=== PATIENT | male | born 1985 | race Caucasian/White ===

== ENCOUNTER 2021-09-30 18:58 | Emergency (ER) | payer OTHER, SELFPAY ==
[2021-09-30 19:04] VITALS: BP 138/78; PULSE 77; RESP 14; TEMP 36.6; O2SAT 98
--- NOTE | 2021-09-30 19:09 | ED.URI ---
HPI - URI/Sore Throat General Chief Complaint: Upper Respiratory Infection Stated Complaint: sinus pressure Time Seen by Provider: 09/30/21 19:09 Source: patient and RN notes reviewed History of Present Illness HPI Narrative: Patient is a 36-year-old male who presents the urgent care with complaints of sinus pressure/congestion. Patient states that he has been taking sinus Tylenol and cold medication with good improvement until today when the weather was warmer and the wind picked up . Patient states he believes on Tuesday which made it most worse. Also reports of some right ear pain. Patient has continued to take Claritin. Denies of any fever, chills, nausea, vomiting. No other acute complaints. No acute distress noted. Patient read the plan of care. Some parts of this dictation were generated by voice recognition software and may contain typographical and/or grammatical inaccuracies. Related Data Allergies Allergy/AdvReac Type Severity Reaction Status Date / Time Sulfa (Sulfonamide Allergy Unknown Rash Verified 09/30/21 19:12 Antibiotics) Review of Systems Review of Systems: CONSTITUTIONAL: Denies fever, chills, or sweats. EYES: Denies visual changes, redness, or discharge. ENT: Reports of sinus congestion/pressure and postnasal drainage with right otalgia CARDIOVASCULAR: Denies chest pain, palpitations, or edema. RESPIRATORY: Denies cough or dyspnea. GASTROINTESTINAL: Denies abdominal pain, nausea, vomiting, or diarrhea. GENITOURINARY: Denies dysuria or hematuria. SKIN: Denies rash or itching. MUSCULOSKELETAL: Denies back pain, joint pain, or myalgia. NEUROLOGIC: Denies headache, numbness, or weakness. All other systems reviewed are negative, except as documented in HPI. PMFSH Comments At the time of my signature, I reviewed and agree with the nursing past medical, surgical, social, and family history. There is no relevant family history pertinent to the patient complaint. Exam Narrative: GENERAL: This is a well-nourished, well-developed patient, in no apparent distress. HEAD: normocephalic, atraumatic. EYES: PERRL. Sclera clear/white. Vision is grossly intact. Mild to moderate frontal sinus tenderness EARS: External ears normal, auditory canals clear and without drainage, TMs normal without perforation. Hearing grossly intact. NOSE: External nose normal with no obvious nasal discharge, nares without redness, clear rhinorrhea. THROAT: Mucous membranes moist, posterior pharynx clear. Moderate postnasal drainage NECK: Neck supple CARDIOVASCULAR: Regular rate and rhythm without murmurs, gallops, or rubs. RESPIRATORY: Clear to auscultation. Breath sounds equal bilaterally. No wheezes, rales, or rhonchi. SKIN: warm, intact with no suspicious lesions or rash, good texture and turgor. NEURO: awake, alert, and oriented to person, place and time. There were no obvious focal neurologic abnormalities. EXTREMITIES: No clubbing, cyanosis, or edema. Course Vital Signs Vital signs: Vital Signs Temperature 97.8 F 09/30/21 19:04 Pulse Rate 77 09/30/21 19:04 Respiratory Rate 14 09/30/21 19:04 Blood Pressure 138/78 09/30/21 19:04 Pulse Oximetry 98 09/30/21 19:04 Temperature 97.8 F 09/30/21 19:04 Pulse Rate 77 09/30/21 19:04 Respiratory Rate 14 09/30/21 19:04 Blood Pressure 138/78 09/30/21 19:04 Pulse Oximetry 98 09/30/21 19:04 Reviewed MDM - URI/Sore Throat MDM Narrative Medical decision making narrative: Advised patient to complete the steroid regimen as prescribed. Use Flonase prior to bedtime as needed. May continue your daily Claritin regimen. Use Tylenol/ibuprofen as needed. Follow-up with your PCP within 2 to 5 days or for worsening symptoms or failure to improve. Differential Diagnosis Differential diagnosis: Likely upper respiratory infection, otitis media, sinusitis, viral infection, bronchitis, influenza and pharyngitis Critical Care Time Critical Care Time Critical Car
[2021-09-30 19:12] VITALS: BP 138/78; PULSE 77; RESP 14; TEMP 36.6; O2SAT 98
== END 2021-09-30 19:21 | disposition home or self-care (01) ==
PROVIDERS: Emergency Provider Nurse Practitioner Family; PCP Nurse Practitioner Family
DX: J32.9 Chronic sinusitis, unspecified (principal)
CPT/HCPCS: 99203; G0463

== ENCOUNTER 2021-10-24 08:51 | Emergency (ER) | payer OTHER, SELFPAY ==
[2021-10-24 09:00] VITALS: BP 126/76; PULSE 75; RESP 20; TEMP 36.9; O2SAT 100
--- NOTE | 2021-10-24 09:24 | ED.URI ---
HPI - URI/Sore Throat General Chief Complaint: Upper Respiratory Infection Stated Complaint: Sinus Pain Time Seen by Provider: 10/24/21 09:24 Source: patient, RN notes reviewed and old records reviewed Mode of arrival: ambulatory Limitations: no limitations History of Present Illness HPI Narrative: 36-year-old male presents to [facility] with complaints of sinus congestion, sinus pain, and drainage. Patient states that he was seen here on the 30 of September and received a Medrol dose pack for his sinuses which did help for about a week and then symptoms have returned. He states that he has copious amount of green nasal drainage and pressure and pain under his eyes especially on the right side. Patient states that he has been taking some Tylenol severe sinus. Patient states that he has not had COVID vaccinations, denies any fevers chills or sweats or any body aches. MD elicited complaint: rhinorrhea, nasal congestion and sinus pain Pertinent past history: sinusitis Onset (ago): week(s) (2) Related Data Allergies Allergy/AdvReac Type Severity Reaction Status Date / Time Sulfa (Sulfonamide Allergy Unknown Rash Verified 09/30/21 19:12 Antibiotics) Review of Systems Review of Systems: CONSTITUTIONAL: Denies fever, chills, or sweats. EYES: Denies visual changes, redness, or discharge. ENT: Positive for rhinorrhea, congestion, no sore throat, positive for some ear pressure. CARDIOVASCULAR: Denies chest pain, palpitations, or edema. RESPIRATORY: Denies cough or dyspnea. GASTROINTESTINAL: Denies abdominal pain, nausea, vomiting, or diarrhea. GENITOURINARY: Denies dysuria or hematuria. SKIN: Denies rash or itching. MUSCULOSKELETAL: Denies back pain, joint pain, or myalgia. NEUROLOGIC: Denies headache, numbness, or weakness,positive for pressure to face. PSYCHIATRIC: Denies anxiety or depression. All systems reviewed & are unremarkable except as noted in HPI and below PMFSH Past Medical History Medical History (Updated 10/24/21 @ 09:59 by Franca Ojeda NP) Sinusitis Surgical History Surgical History History of appendectomy Family History Family History (Updated 10/24/21 @ 10:00 by Franca Ojeda NP) Father Heart disease Sibling Asthma Social History Social History (Updated 10/24/21 @ 10:01 by Franca Ojeda NP) Tobacco type: e-cigarettes/vaping Additional smoking assessment comments: former tobacco use quit smoking cigarettes 4 years ago Alcohol intake: unknown Substance use: unknown Living arrangements: with family Gender identity (if verbalized by the patient): Male Comments At time of signature, agree with nursing past medical, surgical, social and family history. There is no relevant family history pertinent to the presenting complaint Exam Narrative: GENERAL: Well-appearing, well-nourished, and in no acute distress. HEAD: Normocephalic, atraumatic. EYES: PERRLA and EOMI. ENT: Nares red with swollen inflamed turbinates. green nasal rhinorrhea no epistaxis. Mucous membranes moist.TM's normal with dull light reflex, throat pink with no lesions or exudates, no tonsil enlargement. NECK: Supple. no lymphadenopathy CHEST: Clear to auscultation. No respiratory distress.SAO2 100% on room air HEART: Regular rate and rhythm. No murmur heard. Normal peripheral pulses. ABDOMEN: Soft, nontender, nondistended, normal active bowel sounds. EXTREMITIES: Normal range of motion. No edema. SKIN: Warm, dry, no rash. NEURO: No focal deficits. Alert and oriented x3. Course Vital Signs Vital signs: Vital Signs Temperature 36.9 C 10/24/21 09:00 Pulse Rate 75 10/24/21 09:00 Respiratory Rate 20 10/24/21 09:00 Blood Pressure 126/76 10/24/21 09:00 Pulse Oximetry 100 10/24/21 09:00 Temperature 36.9 C 10/24/21 09:00 Pulse Rate 75 10/24/21 09:00 Respiratory Rate 20 10/24/21 09:00 Blood Pressure 126/76 10/24/21 09:00 P
== END 2021-10-24 09:40 | disposition home or self-care (01) ==
PROVIDERS: Emergency Provider Registered Nurse; PCP Nurse Practitioner Family
DX: J32.9 Chronic sinusitis, unspecified (principal); F17.290 Nicotine dependence, other tobacco product, uncomplicated
CPT/HCPCS: 99213; G0463

== ENCOUNTER 2022-10-09 08:07 | Emergency (ER) | payer OTHER, SELFPAY ==
--- NOTE | 2022-10-09 08:13 | ED.URI ---
HPI - URI/Sore Throat General Chief Complaint: Ear Stated Complaint: ears chest congestion Time Seen by Provider: 10/09/22 08:14 Source: patient and RN notes reviewed History of Present Illness HPI Narrative: patient is a 37-year-old male who presents to urgent care with complaints of bilateral ear discomfort after being sick since last Tuesday. Patient states that he had been taking a lot of Sudafed, nasal spray and [id number]-[id number]-szhbrtu cough medication. Patient states all of his symptoms have since resolved with the exception of the ear pressure. Patient also reports of some wheezing at night. Denies any recent fevers. No other acute complaints. No acute distress noted. Patient aware of the plan of care. Some parts of this dictation were generated by voice recognition software and may contain typographical and/or grammatical inaccuracies. Related Data Allergies Allergy/AdvReac Type Severity Reaction Status Date / Time Sulfa (Sulfonamide Allergy Unknown Rash Verified 10/09/22 08:27 Antibiotics) Penicillins Allergy Unknown Verified 10/09/22 08:27 Review of Systems Review of Systems: CONSTITUTIONAL: Denies fever, chills, or sweats. EYES: Denies visual changes, redness, or discharge. ENT: Reports bilateral ear pain CARDIOVASCULAR: Denies chest pain, palpitations, or edema. RESPIRATORY: reports mild nonproductive cough with intermittent wheezing GASTROINTESTINAL: Denies abdominal pain, nausea, vomiting, or diarrhea. GENITOURINARY: Denies dysuria or hematuria. SKIN: Denies rash or itching. MUSCULOSKELETAL: Denies back pain, joint pain, or myalgia. NEUROLOGIC: Denies headache, numbness, or weakness. All other systems reviewed are negative, except as documented in HPI. [facility] Past Medical History Medical History (Updated 10/09/22 @ 08:35 by ALLI Alfaro) Sinusitis Surgical History Surgical History History of appendectomy Family History Family History (Updated 10/24/21 @ 10:00 by Franca Ojeda NP) Father Heart disease Sibling Asthma Social History Social History (Updated 10/24/21 @ 10:01 by Franca Ojeda NP) Tobacco type: e-cigarettes/vaping Additional smoking assessment comments: former tobacco use quit smoking cigarettes 4 years ago Alcohol intake: unknown Substance use: unknown Gender identity (if verbalized by the patient): Male Comments At the time of my signature, I reviewed and agree with the nursing past medical, surgical, social, and family history. There is no relevant family history pertinent to the patient complaint. Exam Narrative: GENERAL: This is a well-nourished, well-developed patient, in no apparent distress. HEAD: normocephalic, atraumatic. EYES: PERRL. Sclera clear/white. Vision is grossly intact. EARS: External ears normal, auditory canals clear and without drainage, TMs normal without perforation. Hearing grossly intact. NOSE: External nose normal with no obvious nasal discharge, nares without redness, no rhinorrhea. THROAT: Mucous membranes moist, posterior pharynx clear. mild postnasal drainage NECK: Neck supple, non-tender without lymphadenopathy, masses or thyromegaly. CARDIOVASCULAR: Regular rate and rhythm without murmurs, gallops, or rubs. RESPIRATORY: inspiratory wheezes SKIN: warm, intact with no suspicious lesions or rash, good texture and turgor. NEURO: awake, alert, and oriented to person, place and time. There were no obvious focal neurologic abnormalities. EXTREMITIES: No clubbing, cyanosis, or edema. Course Course Level of Care: Express Care Visit Vital Signs Vital signs: Vital Signs Temperature 97.9 F 10/09/22 08:18 Pulse Rate 59 L 10/09/22 08:18 Respiratory Rate 20 10/09/22 08:18 Blood Pressure 133/80 10/09/22 08:18 Pulse Oximetry 97 10/09/22 08:18 Oxygen Delivery Room Air 10/09/22 08:18 Temperature 97.9 F 10/09/22 08:18 Pulse Rate
[2022-10-09 08:18] VITALS: BP 133/80; PULSE 59; RESP 20; TEMP 36.6; O2SAT 97
== END 2022-10-09 08:46 | disposition home or self-care (01) ==
PROVIDERS: Emergency Provider Nurse Practitioner Family; PCP Nurse Practitioner Family
DX: J40 Bronchitis, not specified as acute or chronic (principal); F17.290 Nicotine dependence, other tobacco product, uncomplicated
CPT/HCPCS: 99213; G0463

== ENCOUNTER 2024-10-19 15:34 | Emergency (ER) | payer BC, SELFPAY ==
[2024-10-19 15:40] VITALS: BP 139/65; PULSE 81; RESP 16; TEMP 36.4; O2SAT 98
--- NOTE | 2024-10-19 15:48 | ED_ITS ---
HPI - Ear Problem General Chief complaint: Ear Stated complaint: Right Ear Pain Time Seen by Provider: 10/19/24 15:48 Source: patient, RN notes reviewed and old records reviewed Mode of arrival: ambulatory Limitations: no limitations History of Present Illness HPI Narrative: 39 year old male who presents to [facility] with complaints of right ear itchy for one week duration and also has odor from his ear. Patient reports that he has had frequent right ear infections over the years to his right ear and presently doesn't have pain to his right ear. Patient reports that he has had some left over ear drops that he has been applying for the past 3 nights which have not helped. MD Complaint: other (ear itchy and has odor) Location: right ear Duration: constant Severity: moderate Discharge from ear: Reports no Associated symptoms ear: other (itchy right ear and odorous) Treatment prior to arrival: eardrops Related Data Allergies Allergy/AdvReac Type Severity Reaction Status Date / Time Sulfa (Sulfonamide Allergy Unknown Rash Verified 10/19/24 15:49 Antibiotics) Penicillins Allergy Unknown Verified 10/19/24 15:49 Review of Systems Review of Systems: CONSTITUTIONAL: Denies malaise, chills, sweats, or fever. EYES: Denies visual changes, redness, or discharge. ENT: Reports rhinorrhea, congestion, no sinus pain,right ear feels itchy and has odor reports no pain and no sore throat. CARDIOVASCULAR: Denies chest pain, palpitations, or edema. RESPIRATORY: Reports no cough.? Denies dyspnea. GASTROINTESTINAL: Denies abdominal pain, nausea, vomiting, diarrhea SKIN: Denies rash or itching. MUSCULOSKELETAL: Denies myalgia. NEUROLOGIC: Denies headache. All systems reviewed & are unremarkable except as noted in HPI and below [facility] Past Medical History Medical History (Updated 10/21/24 @ 18:47 by Franca Ojeda NP) Ear infection Sinusitis Surgical History Surgical History History of appendectomy Family History Family History (Updated 10/24/21 @ 10:00 by Franca Ojeda NP) Father Heart disease Sibling Asthma Social History Social History (Updated 10/24/21 @ 10:01 by Franca Ojeda NP) Tobacco type: e-cigarettes/vaping Additional smoking assessment comments: former tobacco use quit smoking cigarettes 4 years ago Alcohol intake: unknown Substance use: unknown Living arrangements: with family Gender identity (if verbalized by the patient): Male Comments At time of signature, agree with nursing past medical, surgical, social and family history. There is no relevant family history pertinent to the presenting complaint Exam Narrative: GENERAL: Well-appearing, well-nourished, and in no acute distress. HEAD: Normocephalic EYES: PERRLA, conjunctivae clear ENT: Nares clear, turbinates edematous and erythematous, clear discharge. Mucous membranes moist Right TM red and bulging with ear canal red and excoriated,Left TM pearly lizarraga with dull light reflex; right tragal tenderness. Oropharynx er ythematous without lesions. Tonsils not enlarged and without exudate, no drooling, no hoarseness, no trismus, uvula midline. NECK: Supple. No lymphadenopathy CHEST: Clear to auscultation, breath sounds equal. No wheezing, rhonchi, rales, or stridor. No respiratory distress, speaks in full sentences.SAO2 98% on room air HEART: Regular rate and rhythm. No murmur heard. SKIN: Warm, dry, no rash. NEURO: Alert and oriented x3. PSYCH: Normal mood and affect Course Course Emergency Course: Patient is aware of diagnosis, understands and agrees to treatment plan.? Anticipatory guidance given.? Patient agrees to follow-up as directed and is aware of reasons to seek care at the emergency department. Portions of this record may have been created with voice recognition software Level of Care: Express Care Visit Vital Signs Vital signs: Vital Signs Temperature 36.4 C 10/19/24 15:40 Pulse Rate 81 10/19/24 15:40 Respiratory Rate 16 10/19/24 15:40 Blood Pressure 139/65 10/19/24 15:40 Pulse Oximetry 98 10/19/24 15:40 Oxygen Delivery Room Air 10/19/24 15:40 Temperature 36.4 C 10/19/24 15:40 Pulse Rate 81 10/19/24 15:40 Respiratory Rate 16 10/19/24 15:40 Blood Pressure 139/65 10/19/24 15:40 Pulse Oximetry 98 10/19/24 15:40 Oxygen Delivery Room Air 12/13/24 15:40 Reviewed Medical Decision Making Differential Diagnosis Differential Diagnosis: URI, otitis media, otitis externa, sinusitis, viral infection Medical Records Medical records reviewed: Yes I reviewed the external patient's medical records. Vital Signs Vital Signs: Vital Signs Temperature 36.4 C 10/19/24 15:40 Pulse Rate 81 10/19/24 15:40 Respiratory Rate 16 10/19/24 15:40 Blood Pressure 139/65 10/19/24 15:40 Pulse Oximetry 98 10/19/24 15:40 Oxygen Delivery Room Air 10/19/24 15:40 Temperature 36.4 C 10/19/24 15:40 Pulse Rate 81 10/19/24 15:40 Respiratory Rate 16 10/19/24 15:40 Blood Pressure 139/65 10/19/24 15:40 Pulse Oximetry 98 10/19/24 15:40 Oxygen Delivery Room Air 10/19/24 15:40 Critical Care Time Critical Care Time Critical Care Time: No Discharge Plan Discharge Clinical Impression: Otitis externa Qualifiers: Otitis externa type: other infective Chronicity: acute Laterality: right Qualified Code(s): H60.391 - Other infective otitis externa, right ear Otitis media Qualifiers: Otitis media type: serous Chronicity: acute Laterality: right Recurrence: non- recurrent Qualified Code(s): H65.01 - Acute serous otitis media, right ear Patient Disposition: Home, Self-Care Condition: Stable Instructions: Antibiotic Form, Barotitis Media (ED), Ear Infection (GEN) Additional Instructions: Increase fluids especially juices and water Mbcq-cdp-otmcvep cough and cold medicine of your choice for your symptoms Tylenol or ibuprofen for any fever pain heat to the face 20-30 minutes 4-6 times a day for pain Salt water gargles, throat lozenges or throat sprays as desired Antibiotic as directed--finished the medication Ear drops as prescribed to right ear Zyrtec Claritin or Ana daily If your symptoms persist, change or worsen significantly before you can contact your personal physician then please, without delay, go to the emergency department for further evaluation. Follow-up with PCP in 7-10 days or sooner if needed Follow up with PCP soon in regards to your blood pressure which is elevated above threshold for referral. Blood pressure above 120/80 may indicate pre- hypertension. 139/65 Patient Language: Turkmen Prescriptions: New ofloxacin 0.3 % drops 5 drp RIGHT EAR BID 7 Days Qty: 10 0RF cefdinir 300 mg capsule 300 mg PO Q12H Qty: 20 0RF No Action albuterol sulfate 90 mcg/actuation HFA aerosol inhaler 2 puff INHALATION QID PRN (Reason: shortness of breath or wheezing) Qty: 8 0RF Follow-up/Referrals: Regna,Sita Mack APN [Primary Care Provider] - Time of Disposition: 16:02 Quality Angelica Coma Scale Eyes: Open Verbal: Oriented and Alert Motor: Follows Commands Angelica Coma Total Score: 15
--- OUTSIDE RECORDS SUMMARY | 2024-10-23 01:53 | XMS_ITS | Clinical Summary ---
Author Organization [facility] Address [address] [place] [address] Phone Care Team Providers Care Informatics Nurse Specialist Name Role Phone Jass, Sita SANCHEZ CNP Primary Care Provider [phone] Allergies Active Allergy Reactions Criticality Noted Date Comments Lvvpddcqqoctkvj-Fflobcz-Ta Itching 9 Sulfa Antibiotics Unknown 01/03/2019 Medications ibuprofen (MOTRIN) 800 MG Tablet Take 1 Tab by mouth every 8 hours. 30 Tab 09/17/2020 Active Immunizations Immunization Administration Dates Next Due Influenza Vaccine greater than 3 yrs 07/17/2015 Social History Tobacco Use Types Packs/Day Years Used Date Smoking Tobacco: Former Smokeless Tobacco: Never Alcohol Use Standard Drinks/Week Comments Not Currently 0 (1 standard drink = 0.6 oz pur e alcohol) Sex and Gender Information Value Date Recorded Sex Assigned at Not on file Legal Sex Male 5:40 PM CDT Gender Identity Not on file Sexual Orientation Not on file Last Filed Vital Signs Vital Sign Reading Time Taken Comments Blood Pressure 146/76 09/17/2020 11:22 AM HYGIENE COORDINATOR Pulse 80 09/17/2020 11:22 AM HYGIENE COORDINATOR Temperature 36.2 ??C (97.2 ??F) 09/17/2020 9:27 AM CS T Respiratory Rate 16 09/17/2020 11:22 AM HYGIENE COORDINATOR Oxygen Saturation 98% 09/17/2020 11:22 AM HYGIENE COORDINATOR Inhaled Oxygen Concentration - - Weight 102.1 kg (225 lb) 10/14/2020 8:03 AM HYGIENE COORDINATOR Height 175.3 cm (5' 9 ) 10/14/2020 8:03 AM HYGIENE COORDINATOR Body Mass Index 33.23 10/14/2020 8:03 AM HYGIENE COORDINATOR Plan of Treatment Health Maintenance Due Date Last Done Comments Hepatitis C Virus (HCV) Screening 1983 TdaP Immunization 1983 Hepatitis B Immunization (1 of 3 - 19+ 3-dose series) 2002 Influenza Immunization (#1) 2024 07/17/2015 SARS-COV-2 Immunization ( - 2023-25 season) 2024 Respiratory Syncytial Virus (RSV) Immunization (Adult) (1 - 1-dose 75+ series) 2058 Meningococcal Immunization (ACWY) Aged Out No longer eligible based on patient's age to complete this topic Pneumococcal Immunization Combined Aged Out No longer eligible based on patient's age to complete this topic Rotavirus Immunization Aged Out No lo nger eligible based on patient's age to complete this topic Insurance MEDICAID [place] Care Teams Informatics Nurse Specialist Relationship Specialty Start Date End Date Sita Regan APRN, [place] [address] [place] [address] [place] [id number] PCP - General Family Medicine 12/22/18
--- OUTSIDE RECORDS SUMMARY | 2024-10-23 01:53 | XMS_ITS | Encounter Summary ---
Author Organization [facility] Address [address] [address] Phone Care Team Providers Care Manager Operations And Procurement Name Role Phone Sita Regan APRN, CNP Primary Care Provider [phone] Reason for Referral * Radiology Services (Routine) - Closed Specialty Diagnoses / Procedures Referred By Contac t Referred To Contact Radiology Diagnoses Right upper quadrant pain Procedures NM HEPATOBILIARY WITH PHARM Sita Regan APRN, CNP [address] [place] [address] Phone: tel: fax: Referral ID Status Reason Start Date Expiration Date Visits Re quested Visits Authorized [id number] Closed 09/26/2020 1 1 GER APPLICATION DEVELOPMENT Reason for Visit * Radiology Services (Routine) - Closed Specialty Diagnoses / Procedures Referred By Contac t Referred To Contact Radiology Diagnoses Right upper quadrant pain Procedures NM HEPATOBILIARY WITH PHARM Sita Regan APRN, CNP [address] [place] [address] Phone: tel: fax: Referral ID Status Reason Start Date Expiration Date Visits Re quested Visits Authorized [id number] Closed 09/26/2020 1 1 Encounter Details Date Type Department Care Team (Latest Contact Info) Description 10/14/2020 7:58 AM MANAGER APPLICATION DEVELOPMENT - 10/14/2020 11:59 PM MANAGER APPLICATION DEVELOPMENT Hospital Encounter [facility] [address] [place] [address] Sita Regan APRN, CNP [address] [place] [address] Discharge Disposition: Discharged to home or Selfcare Social History Tobacco Use Types Packs/Day Years Used Date Smoking Tobacco: Former Smokeless Tobacco: Never Alcohol Use Standard Drinks/Week Comments Not Currently 0 (1 standard drink = 0.6 oz pur e alcohol) Sex and Gender Information Value Date Recorded Sex Assigned at Not on file Legal Sex Male 5:40 PM CDT Gender Identity Not on file Sexual Orientation Not on file COVID-19 Exposure Response Date Recorded In the last month, have you been in contact with someone who was confirmed or suspected to have Coronavirus / COVID-19? No / Unsure 10/14/2020 7:48 AM MANAGER APPLICATION DEVELOPMENT documented as of this encounter Last Filed Vital Signs Vital Sign Reading Time Taken Comments Blood Pressure - - Pulse - - Temperature - - Respiratory Rate - - Oxygen Saturation - - Inhaled Oxygen Concentration - - Weight 102.1 kg (225 lb) 10/14/2020 8:03 AM MANAGER APPLICATION DEVELOPMENT Height 175.3 cm (5' 9 ) 10/14/2020 8:03 AM MANAGER APPLICATION DEVELOPMENT Body Mass Index 33.23 10/14/2020 8:03 AM MANAGER APPLICATION DEVELOPMENT documented in this encounter Medications at Time of Discharge ibuprofen (MOTRIN) 800 MG Tablet Take 1 Tab by mouth every 8 hours. 30 Tab 09/17/2020 documented as of this encounter Plan of Treatment Not on file documented as of this encounter Procedures Procedure Name Priority Date/Time Associated Diagnosis Comments NM HEPATOBILIARY WITH PHARM Routine 10/14/2020 9:47 AM MANAGER APPLICATION DEVELOPMENT Right upper quadrant pain documented in this encounter Results * NM HEPATOBILIARY WITH PHARM (10/14/2020 9:47 AM MANAGER APPLICATION DEVELOPMENT) Anatomical Region Laterality Modality Abdomen N/A Nuclear Medicine 10/14/2020 10:2 7 AM MANAGER APPLICATION DEVELOPMENT Impressions 10/14/2020 10:29 AM MANAGER APPLICATION DEVELOPMENT IMPRESSION: ?? No scintigraphic evidence of cystic duct obstruction. Suboptimal contractile response of the gallbladder to fatty meal stimulation. Differential considerations include biliary dyskinesia and chronic cholecystitis. Narrative 10/14/2020 10:29 AM MANAGER APPLICATION DEVELOPMENT EXAM DESCRIPTION: ?? NM HEPATOBILIARY WITH PHARM RADIOPHARMACEUTICAL: ?? 5.2 mCi Tc-99m mebrofenin via a ??right hand IV site and 8 oz Ensure Plus or equivalent P.O. REASON FOR STUDY: ?? Right upper quadrant pain for 3 weeks TECHNIQUE: ??Following the intravenous administration of the radiopharmaceutical, sequential abdominal images were obtained. COMPARISON: ?? Ultrasound dated September 13, 2020 FINDINGS: ?? There is prompt, homogenous tracer localization throughout the liver. There is normal visualization of the intrahepatic ducts, common bile duct, and gallbladder. ??There is normal biliary to bowel transit. Following the oral administration of Ensure Plus or equivalent, the gallbladder ejection fraction was calculated and was ??0% (normal: greater than 40%, equivocal: 30-40%, and abnormal: less than 30%). THIS IS AN ELECTRONICALLY VERIFIED FINAL REPORT 10/14/2020 10:27 AM - Electronically signed by Kris Jung M.D. JA: MALIK D: ??10/14/2020 10:27 AM T: ??10/14/2020 10:27 AM Report ID: [id number] Reading Location: ??[phone].[facility] [place] Procedure Note Kris Jung MD - 10/14/2020 EXAM DESCRIPTION: NM HEPATOBILIARY WITH PHARM RADIOPHARMACEUTICAL: 5.2 mCi Tc-99m mebrofenin via a right hand IV site and 8 oz Ensure Plus or equivalent P.O. REASON FOR STUDY: Right upper quadrant pain for 3 weeks TECHNIQUE: Following the intravenous administration of the radiopharmaceutical, sequential abdominal images were obtained. COMPARISON: Ultrasound dated September 13, 2020 FINDINGS: There is prompt, homogenous tracer localization throughout the liver. There is normal visualization of the intrahepatic ducts, common bile duct, and gallbladder. There is normal biliary to bowel transit. Following the oral administration of Ensure Plus or equivalent, the gallbladder ejection fraction was calculated and was 0% (normal: greater than 40%, equivocal: 30-40%, and abnormal: less than 30%). THIS IS AN ELECTRONICALLY VERIFIED FINAL REPORT 10/14/2020 10:27 AM - Electronically signed by Krisfaye Jung M.D. JA: MALIK Report ID: [id number] Reading Location: [phone].[facility] IMPRESSION: No scintigraphic evidence of cystic duct obstruction. Suboptimal contractile response of the gallbladder to fatty meal stimulation. Differential considerations include biliary dyskinesia and chronic cholecystitis. THALIA Brady APRN NM ORDERABLES Final R esult documented in this encounter Visit Diagnoses Diagnosis Right upper quadrant pain Abdominal pain, right upper quadrant documented in this encounter Administered Medications Inactive Administered Medications - up to 3 most recent administrations Medication Order MAR Action Action Date Dose Rate Site TC-99M MEBROFENIN PER DOSE,UP TO 15 MCI 1 Dose, Intravenous, ONCE, 1 dose, On 10/14/20 at 0830 Given 10/14/2020 8:30 AM MANAGER APPLICATION DEVELOPMENT 1 Dose documented in this encounter Care Teams Manager Operations And Procurement Relationship Specialty Start Date End Date Sita Regan APRN, THALIA [address] [place] [address] PCP - General Family Medicine 12/22/18 documented as of this encounter
--- OUTSIDE RECORDS SUMMARY | 2024-10-23 01:53 | XMS_ITS | Patient Health Summary ---
Author Organization [facility] Address [address] [place] [address] Care Team Providers Care Phone Counselor Name Role Phone Unavailable Primary Care Provider Unavailabl e Note from [facility],non-owned Affiliates and Associated Physician Practices is amultiple site organization consisting of ambulatory clinics and hospital sitesin [place], [place], [place] and [place]. This disclosure is being madepursuant to the Care Everywhere program and may not contain all information available regarding this patient. Last updated 18.[facility] Social History Tobacco Use Types Packs/Day Years Used Date Smoking Tobacco: Never Assessed Sex and Gender Information Value Date Recorded Sex Assigned at Not on file Gender Identity Not on file Sexual Orientation Not on file Procedures * GROSS + MICRO EXAM(Performed 02/05/1998) Results * GROSS + MICRO EXAM (02/05/1998 11:52 AM HOUSING SPECIALIST) Result CASE NUMBER [id number] Comment: ORDERING PHYSICIAN ??SENG VAN SPECIMEN TYPE ?Tooth Date of Surgery ?02/05/1998 0832 SPECIMEN SOURCE ? Tooth *Pre Op Dx ? Impacted tooth GROSS DESCRIPTION ? Received in fixative and labeled Godfrey Bowser tooth, there is a single, intact, non-carious tooth, together with several splinters of pink bone, the latter measuring in aggregate 0.7 x 0.6 x 0.1 cm. The specimen is taken for gross identification only. Grossed by ? CHICHI PRICE M.D. DIAGNOSIS ? NON-CARIOUS TOOTH AND SPLINTERS OF BONE. (GROSS ONLY) CODE 1 CPT ??Level I ??74638 RELEASED BY ?CHICHI Witt MISCELLANEOUS SAMPLES / Unknown 02/05/1998 11:52 AM HOUSING SPECIALIST 02/05/1998 11:52 AM HOUSING SPECIALIST Historical Provider LAB - PATHOLOGY/C YTOLOGY ORDERABLES
--- OUTSIDE RECORDS SUMMARY | 2024-10-23 01:53 | XMS_ITS | Encounter Summary ---
Author Organization [facility] [facility] Care Team Providers Care Pc Installation Engineer Name Role Phone Sita Regan APRN, CNP Primary Care Provider [phone] Encounter Details Date Type Department Care Team (Latest Contact Info) Description 09/17/2020 Travel Social History Tobacco Use Types Packs/Day Years [...] have Coronavirus / COVID-19? 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
--- OUTSIDE RECORDS SUMMARY | 2024-10-23 01:53 | XMS_ITS | Encounter Summary ---
Author Organization [facility] Address [address] [place] [address] Phone Care Team Providers Care Supervisor Fruit [employer] Name Role Phone ReganBroSitamurtaza SANCHEZ CNP Primary Care Provider [phone] Reason for Visit * Reason Comments Abdominal Pain Encounter Details Date Type Department Care Team (Late st Contact Info) Description 09/17/2020 9:31 AM BUS PERSON DISHWASHER - 09/17/2020 11:23 AM BUS PERSON DISHWASHER Emergency [facility] Emergency [address] [place] [address] Jake Flores MD [address] [place] [address] Abdominal pain, right upper quadrant Discharge Disposition: Discharged to home or Selfcare [...] COVID-19? No / Unsure 09/17/2020 9:27 AM BUS PERSON DISHWASHER documented as of this encounter Last Filed Vital Signs Vital Sign Reading Time Taken Comments Blood Pressure 146/76 09/17/2020 11:22 AM BUS PERSON DISHWASHER Pulse 80 09/17/2020 11:22 AM BUS PERSON DISHWASHER Temperature 36.2 ??C (97.2 ??F) 09/17/2020 9:27 AM CS T Respiratory Rate 16 09/17/2020 11:22 AM BUS PERSON DISHWASHER Oxygen Saturation 98% 09/17/2020 11:22 AM BUS PERSON DISHWASHER Inhaled Oxygen Concentration - - Weight 102.1 kg (225 lb) 09/17/2020 9:27 AM BUS PERSON DISHWASHER Height 175.3 cm (5' 9 ) 09/17/2020 9:27 AM BUS PERSON DISHWASHER Body Mass Index 33.23 09/17/2020 9:27 AM BUS PERSON DISHWASHER documented in this encounter Discharge Instructions * Discharge Instructions* Jake Flores - 09/17/2020 11:11 AM BUS PERSON DISHWASHER Images from the original note were not included. Abdominal Pain Abdominal pain is pain in the stomach or belly area. Everyone has this pain from time to time. In many cases it goes away on its own. But abdominal pain can sometimes be due to a serious problem, such as appendicitis. So it???s important to know when to get help. Causes of abdominal pain There are many possible causes of abdominal pain. Common causes in adults include: ?? Constipation, diarrhea, or gas ?? Stomach acid flowing back up into the esophagus (acid reflux or heartburn) ?? Severe acid reflux, called GERD (gastroesophageal reflux disease) ?? A sore in the lining of the stomach or small intestine (peptic ulcer) ?? Inflammation of the gallbladder, liver,??or pancreas ?? Gallstones or kidney stones ?? Appendicitis? Intestinal blockage? An internal organ pushing through a muscle or other tissue (hernia) ?? Urinary tract infections ?? In women, menstrual cramps, fibroids, ovarian cysts, pelvic inflammatory disease, or endometriosis ?? Inflammation or infection of the intestines, including Crohn's disease and ulcerative colitis ?? Irritable bowel syndrome Diagnosing the cause of abdominal pain Your healthcare provider will give you a physical exam help find the cause of your pain. If needed,you will have tests. Belly pain has many possible causes. So it can be hard to find the reason for your pain. Giving details about your pain can help. Tell your provider where and when you feel the pain, and what makes it better or worse. Also let your provider know if you have other symptoms such as: ?? Fever ?? Tiredness ?? Upset stomach (nausea) ?? Vomiting ?? Changes in bathroom habits ?? Blood in the stool or black, tarry stool ?? Weight loss that you can't explain (involuntary weight loss?) Also report any family history of stomach or intestinal problems, or cancers. Tell your provider about all your alcohol use and drug use. Tell your provider about all medicines you use, including herbs, vitamins, and supplements. Treating abdominal pain Some causes of pain need emergency medical treatment right away. These include appendicitis or a bowel blockage. Other problems can be treated with rest, fluids, or medicines. Your healthcare provider can give you specific instructions for treatment or self-care based on what is causing your pain. ?? If you have vomiting or diarrhea,??sip water or other clear fluids. When you are ready to eat solidfoods again, start with small amounts of uwio-vf-fuquwe, low- fat foods. These include apple sauce, toast, or crackers. When to get medical care Call 911??or go to the hospital right away if you: ?? Can???t pass stool and are vomiting ?? Are vomiting blood or have bloody diarrhea or black, tarry diarrhea ?? Have chest, neck, or shoulder pain ?? Feel like you might pass out ?? Have pain in your shoulder blades with nausea ?? Have sudden, severe belly pain ?? Have new, severe??pain unlike any you have felt before ?? Have a belly that is rigid, hard, and hurts to touch Call your healthcare provider if you have: ?? Pain for more than??5??days ?? Bloating for more than 2??days ?? Diarrhea for more than??5??days ?? A fever of 100.4??F (38??C) or higher, or as directed by your healthcare provider ?? Pain that gets worse ?? Weight loss for no reason ?? Continued lack of appetite ?? Blood in your stool How to prevent abdominal pain Here are some tips to help prevent abdominal pain: ?? Eat smaller amounts of food at each meal. ?? Don't eat greasy, fried, or other high-fat foods. ?? Don't eat foods that give you gas. ?? Exercise regularly. ?? Drink plenty of fluids. To help prevent GERD symptoms: ?? Quit smoking. ?? Reduce alcohol and foods that increase stomach acid. ?? Don't use aspirin or rphq-ynq-atekyih pain and fever medicines, if possible. This includes nonsteroidal anti-inflammatory drugs (NSAIDs). ?? Lose excess weight. ?? Finish eating at least 2 hours before you go to bed or lie down. ?? Raise the head of your bed. Brenda mcguire reviewed this educational content on 02/05/2019 ?? [id number] [employer]. [address] [place] [address]. All rights reserved. This information is not intended as a substitute for professional medical care. Always follow your healthcare professional's instructions. PERSON DISHWASHER documented in this encounter Medications at Time of Discharge ibuprofen (MOTRIN) 800 MG Tablet Take 1 Tab by mouth every 8 hours. 30 Tab 09/17/2020 documented as of this encounter ED Notes * Faiza Campos RN - 09/17/2020 11:23 AM CST Patient discharged. Discharge instructions and patient educational material reviewed with patient; questions and concerns addressed; patient verbalizes understanding, using teach back. Patient was given 1 prescriptions. Patient discharged per ambulatory mode with no distress noted. SL D/C'ed with Sebas cath intact. PERSON DISHWASHER * Faiza Campos RN - 09/17/2020 10:47 AM CST Patient returned from ct. No distress noted. PERSON DISHWASHER * Faiza Campos RN - 09/17/2020 10:08 AM CST Pt medicated per provider orders. Pt educated on intended effects and side effects of medication and verbalized understanding, able to provide teach back of education. Patient is resting in room withcall light at bedside. Patient informed about wait time and verbalizes understanding. Patient denies needs at this time and verbalizes understanding that RN will complete hourly rounding. PERSON DISHWASHER * Jake Flores - 09/17/2020 9:49 AM CST Chief Complaint Patient presents with ??? Abdominal Pain Godfrey Bowser is a 35 y.o. male TO THE EMERGENCY DEPARTMENT FROM WORK WITH COMPLAINT OF RIGHT UPPER QUADRANT PAIN. CURRENTLY TUESDAY MORNING AROUND 9:40 A.M. SEPTEMBER 17, 2020. PATIENT HAS HAD RIGHT UPPER QUADRANT PAIN FOR THE LAST WEEK. WORSE WHEN HE IS SLEEPING. WAKES HIM FROM SLEEP. NONRADIATING. NO TRAUMA. CALLED PRIMARY PROVIDER AND HAS RIGHT UPPER QUADRANT ULTRASOUND ORDERED. ONLY ABDOMINAL SURGERY APPENDECTOMY. PATIENT HAS NAUSEA WITHOUT VOMITING. NO TREATMENT PRIOR TO ARRIVAL. NO HEMATEMESIS HEMATOCHEZIA OR MELENA. NO ALCOHOL ABUSE. NO HISTORY OF PANCREATITIS. NO HISTORY OF DOCUMENTED PEPTIC ULCER DISEASE. NO SIGNIFICANT HISTORY OF GERD OR GASTRITIS. NO UTI COMPLAINTS. HERE FOR FURTHER EVALUATION MANAGEMENT. The history is provided by the patient and medical records. Abdominal Pain Associated symptoms: nausea Associated symptoms: no chest pain, no chills, no cough, no diarrhea, no dysuria, no fever, no shortness of breath, no sore throat and no vomiting Current Facility-Administered Medications Medication Dose Route Frequency Provider Last Rate Last Admin ??? ketorolac (TORADOL) injection 15 mg 15 mg Intravenous Once Jake Flores MD ??? ondansetron (ZOFRAN) injection 4 mg 4 mg Intravenous Once Jake Flores MD No current outpatient medications on file. Allergies Allergen Reactions ??? Guaifenesin Dac [Mzedomcwngoasym-Rtsjiju-Mo] Itching ??? Sulfa Antibiotics Unknown No past medical history on file. Past Surgical History: Procedure Laterality Date ??? APPENDECTOMY Social History Socioeconomic History ??? Marital status: Spouse name: Not on file ??? Number of children: Not on file ??? Years of education: Not on file ??? Highest education level: Not on file Occupational History ??? Not on file Social Needs ??? Financial resource strain: Not on file ??? Food insecurity Worry: Not on file Inability: Not on file ??? Transportation needs Medical: Not on file Non-medical: Not on file Tobacco Use ??? Smoking status: Former Smoker ??? Smokeless tobacco: Never Used Substance and Sexual Activity ??? Alcohol use: Not Currently ??? Drug use: Yes Types: Marijuana ??? Sexual activity: Not on file Lifestyle ??? Physical activity Days per week: Not on file Minutes per session: Not on file ??? Stress: Not on file Relationships ??? Social connections Talks on phone: Not on file Gets together: Not on file Attends mosque service: Not on file Active member of club or organization: Not on file Attends meetings of clubs or organizations: Not on file Relationship status: Not on file ??? Intimate partner violence Fear of current or ex partner: Not on file Emotionally abused: Not on file Physically abused: Not on file Forced sexual activity: Not on file Other Topics Concern ??? Not on file Social History Narrative ??? Not on file BP 142/85 Pulse 73 Temp 97.2 ??F (36.2 ??C) (Tympanic) Resp 18 Ht 5' 9 (1.753 m) Wt 225 lb (102.1 kg) SpO2 98% BMI 33.23 kg/m?? Review of Systems Constitutional: Negative for appetite change, chills and fever. HENT: Negative for congestion, hearing loss, rhinorrhea and sore throat. Eyes: Negative for visual disturbance. Respiratory: Negative for cough and shortness of breath. Cardiovascular: Negative for chest pain. Gastrointestinal: Positive for abdominal pain and nausea. Negative for diarrhea and vomiting. Genitourinary: Negative for decreased urine volume and dysuria. Musculoskeletal: Negative for myalgias. Skin: Negative for rash. Neurological: Negative for dizziness, weakness, light-headedness and headaches. Psychiatric/Behavioral: Negative for confusion. All other systems reviewed and are negative. Physical Exam Vitals signs and nursing note reviewed. Constitutional: General: He is not in acute distress. Appearance: He is well-developed. He is not ill-appearing, toxic-appearing or diaphoretic. Comments: LOOKS UNCOMFORTABLE HOLDING RIGHT UPPER QUADRANT HENT: Head: Normocephalic and atraumatic. Nose: Nose normal. Eyes: General: No scleral icterus. Right eye: No discharge. Left eye: No discharge. Extraocular Movements: Extraocular movements intact. Conjunctiva/sclera: Conjunctivae normal. Pupils: Pupils are equal, round, and reactive to light. Neck: Musculoskeletal: Normal range of motion and neck supple. Trachea: No tracheal deviation. Cardiovascular: Rate and Rhythm: Normal rate and regular rhythm. Heart sounds: Normal heart sounds. No murmur. No friction rub. No gallop. Pulmonary: Effort: Pulmonary effort is normal. No respiratory distress. Breath sounds: Normal breath sounds. No stridor. No wheezing or rales. Abdominal: General: Bowel sounds are normal. There is no distension. Palpations: Abdomen is soft. Tenderness: There is abdominal tenderness in the right upper quadrant. There is no guarding or rebound. Positive signs include Cooper's sign. Musculoskeletal: Normal range of motion. General: No tenderness. Lymphadenopathy: Cervical: No cervical adenopathy. Skin: General: Skin is warm and dry. Capillary Refill: Capillary refill takes less than 2 seconds. Coloration: Skin is not pale. Findings: No erythema or rash. Neurological: General: No focal deficit present. Mental Status: He is alert and oriented to person, place, and time. Cranial Nerves: No cranial nerve deficit. Psychiatric: Mood and Affect: Mood normal. Behavior: Behavior normal. Thought Content: Thought content normal. Judgment: Judgment normal. Procedures Imaging Results US ABDOMEN LIMITED LEVEL 3 THREE ORGAN [id number] (No Result on File) MDM Coding DIFFERENTIAL DIAGNOSIS INCLUDES BILIARY DYSKINESIA, ACUTE CHOLECYSTITIS, ELECTROLYTE ABNORMALITY, ANEMIA, PANCREATITIS, UNLIKELY BOWEL PERFORATION, UNLIKELY BOWEL OBSTRUCTION, IBS, IBD, DEHYDRATION, GASTROENTERITIS, PEPTIC ULCER DISEASE, GASTRITIS, ETCETERA 11:10 AM BUS PERSON DISHWASHER FEELS BETTER. Admission on 09/17/2020 Component Date Value Ref Range Status ??? SODIUM 09/17/2020 137 136 - 144 mmol/L Final ??? POTASSIUM 09/17/2020 4.1 3.5 - 5.1 mmol/L Final ??? CHLORIDE 09/17/2020 101 100 - 110 mmol/L Final ??? CO2, VENOUS 09/17/2020 27 22 - 32 mmol/L Final ??? ANION GAP 09/17/2020 13.1 8.0 - 20.0 mmol/L Final ??? GLUCOSE 09/17/2020 99 70 - 99 mg/dL Final ??? BUN 09/17/2020 13 6 - 20 mg/dL Final ??? CREATININE, BLOOD 09/17/2020 0.91 0.80 - 1.30 mg/dL Final ??? BUN/CREATININE RATIO 09/17/2020 14 12 - 20 ratio Final ??? TOTAL PROTEIN 09/17/2020 7.3 6.0 - 8.3 g/dL Final ??? ALBUMIN 09/17/2020 4.7 3.5 - 5.2 g/dL Final The colormetric methods used for the determination of Albumin may lead to falsely elevated test results in patients suffering from renal failure or insufficiency due to interference with other proteins. ??? A/G RATIO 09/17/2020 1.8 1.0 - 2.0 Final ??? CALCIUM 09/17/2020 9.3 8.9 - 10.3 mg/dL Final ? ? T BILI 09/17/2020 0.4 <=1.2 mg/dL Final ? ? SGOT (AST) 09/17/2020 18 <=40 U/L Final ? ? SGPT (ALT) 09/17/2020 18 <=41 U/L Final ??? ALKALINE PHOSPHATASE 09/17/2020 59 40 - 130 U/L Final ? ? GFR, EST. NONAFRICAN 09/17/2020 >60 >=60 Final ? ? GFR, EST. 09/17/2020 >60 >=60 Final Creatinine Clearance is the preferred criteria for selecting drug dose adjustments in renally impaired patients. The GFR is provided as additional pertinent clinical information. GFR is reported in mL/min/1.73 sq m. ??? LIPASE 09/17/2020 21.2 13 - 60 U/L Final ??? WBC 09/17/2020 6.72 4.00 - 12.00 10(3)/mcL Final ??? RBC 09/17/2020 5.02 4.40 - 5.80 10(6)/mcL Final ??? HEMOGLOBIN (HGB) 09/17/2020 15.5 13.0 - 16.5 g/dL Final ??? HEMATOCRIT (HCT) 09/17/2020 47.0 38.0 - 50.0 % Final ??? MCV 09/17/2020 93.6 82.0 - 96.0 fL Final ??? MCH 09/17/2020 30.9 26.0 - 32.0 pg Final ??? MCHC 09/17/2020 33.0 31.0 - 36.0 g/dL Final ??? PLATELET COUNT 09/17/2020 345 140 - 440 10(3)/mcL Final ??? RDW 09/17/2020 12.0 11.8 - 15.5 % Final ??? MPV 09/17/2020 10.9 8.0 - 12.6 fL Final ??? NEUTROPHILS 09/17/2020 56.8 40.0 - 68.0 % Final ??? LYMPHOCYTES 09/17/2020 31.3 19.0 - 49.0 % Final ??? MONOCYTES 09/17/2020 7.6 3.0 - 13.0 % Final ??? EOSINOPHILS 09/17/2020 3.3 0.0 - 8.0 % Final ??? BASOPHILS 09/17/2020 1.0 0.0 - 1.0 % Final ??? ABSOLUTE NEUTROPHILS 09/17/2020 3.82 1.40 - 5.30 10(3)/mcL Final ??? ABSOLUTE LYMPHOCYTES 09/17/2020 2.10 0.90 - 3.30 10(3)/mcL Final ??? ABSOLUTE MONOCYTES 09/17/2020 0.51 0.10 - 0.90 10(3)/mcL Final ??? ABSOLUTE EOSINOPHIL 09/17/2020 0.22 0.00 - 0.50 10(3)/mcL Final ??? ABSOLUTE BASOPHILS 09/17/2020 0.07 0.00 - 0.10 10(3)/mcL Final ??? NRBC PER 100 WBC 09/17/2020 0 Final Us Abdomen Limited Level 3 Three Organ [id number] Result Date: 09/17/2020 IMPRESSION: Cholelithiasis with positive sonographic Cooper's sign suspicious for acute cholecystitis. However there is no gallbladder wall thickening or pericholecystic fluid. If further assessment were needed, HIDA scan could be considered. The patient remained stable throughout their ED stay. My clinical impression was discussed with thepatient/family. Labs and radiology results were reviewed with them. I gave them the opportunity to ask questions, and addressed them as completely as possible given the information available at present. The therapeutic plan was discussed, advised to take medications as instructed, instructions weregiven and the importance of primary care follow up was stressed and encouraged. The patient/family voiced understanding of the plan, indications to return, and the need for follow up. DX: RIGHT UPPER QUADRANT PAIN PERSON DISHWASHER * Sammie Mclaughlin RN - 09/17/2020 9:30 AM CST Patient to triage with complaints of right upper quadrant abdominal pain for over a week. Patient reports nausea, but denies vomiting. Patient denies diarrhea. Patient states that he has been unable to eat, so he has nothing to throw up. Patient denies fevers, and is afebrile in triage. Patient denies urinary symptoms. PERSON DISHWASHER documented in this encounter Plan of Treatment Not on file documented as of this encounter Procedures Procedure Name Priority Date/Time Associated Diagnosis Comments US ABDOMEN LIMITED LEVEL 3 THREE ORGAN STAT 09/17/2020 10:46 AM BUS PERSON DISHWASHER EXTRA TUBES STAT 09/17/2020 9:57 AM BUS PERSON DISHWASHER WAYNE KEITH HEPARIN/SST TOP TUBE STAT 09/17/2020 9:57 AM BUS PERSON DISHWASHER GOLD TOP TUBE STAT 09/17/2020 9:57 AM BUS PERSON DISHWASHER BLUE TOP TUBE STAT 09/17/2020 9:57 AM BUS PERSON DISHWASHER LAVENDER TOP TUBE STAT 09/17/2020 9:5 7 AM BUS PERSON DISHWASHER CBC WITH AUTO DIFFERENTIAL STAT 09/17/2020 9:57 AM BUS PERSON DISHWASHER LIPASE STAT 09/17/2020 9:57 AM BUS PERSON DISHWASHER CMP (COMPREHENSIVE METABOLIC PANEL) STAT 09/17/2020 9:57 AM BUS PERSON DISHWASHER COMPLETE BLOOD COUNT (CBC) WITH DIFF STAT 09/17/2020 9:57 AM BUS PERSON DISHWASHER documented in this encounter Results * US ABDOMEN LIMITED LEVEL 3 THREE ORGAN [id number] (09/17/2020 10:46 AM BUS PERSON DISHWASHER) Anatomical Region Laterality Modality Abdomen N/A Ultrasound 09/17/2020 10:5 2 AM BUS PERSON DISHWASHER Impressions 09/17/2020 10:55 AM BUS PERSON DISHWASHER IMPRESSION: ??Cholelithiasis with positive sonographic Cooper's sign suspicious for acute cholecystitis. ??However there is no gallbladder wall thickening or pericholecystic fluid. ??If further assessment were needed, HIDA scan could be considered. Narrative 09/17/2020 10:55 AM BUS PERSON DISHWASHER EXAM DESCRIPTION: ?? US ABDOMEN LIMITED LEVEL 3 THREE ORGAN REASON FOR STUDY: ??Right upper quadrant abdominal pain for 1 week. TECHNIQUE: ??Ultrasound of the right upper quadrant of the abdomen was performed with grayscale and color doppler. COMPARISON: ??None. FINDINGS: ??PANCREAS: ??Visualized portions of the pancreas are within normal limits. Portions of the pancreatic body and tail are obscured due to bowel gas. LIVER: ??The liver is 16.8 cm in length, the echogenicity is borderline. ??There are no focal hepatic lesions seen. ??There is antegrade direction of flow in the main portal vein. GALLBLADDER: ??Cholelithiasis is noted and there is a reported positive sonographic Cooper's sign, features which are suspicious for acute cholecystitis. ??However there is no gallbladder wall thickening and no pericholecystic fluid is seen. BILIARY: ??Common bile duct is top-normal at 0.6 cm. ??There is no intrahepatic ductal dilation. ??Common bile duct measures ??0.6 cm in diameter. RIGHT KIDNEY: ??Normal size. Normal echogenicity. No solid mass or cyst. ??No hydronephrosis. Measures ??11 cm in length. OTHER: ??No other significant findings. THIS IS AN ELECTRONICALLY VERIFIED FINAL REPORT 09/17/2020 10:52 AM - Electronically signed by Nael Rosa M.D. CH: MELVIN D: ??09/17/2020 10:52 AM T: ??09/17/2020 10:52 AM Report ID: [id number] Reading Location: ??[id number] Procedure Note Nael Rosa Jr., MD - 09/17/2020 EXAM DESCRIPTION: US ABDOMEN LIMITED LEVEL 3 THREE ORGAN REASON FOR STUDY: Right upper quadrant abdominal pain for 1 week. TECHNIQUE: Ultrasound of the right upper quadrant of the abdomen was performed with grayscale and color doppler. COMPARISON: None. FINDINGS: PANCREAS: Visualized portions of the pancreas are within normal limits. Portions of the pancreatic body and tail are obscured due to bowel gas. LIVER: The liver is 16.8 cm in length, the echogenicity is borderline. There are no focal hepatic lesions seen. There is antegrade direction of flow in the main portal vein. GALLBLADDER: Cholelithiasis is noted and there is a reported positive sonographic Cooper's sign, features which are suspicious for acute cholecystitis. However there is no gallbladder wall thickening and no pericholecystic fluid is seen. BILIARY: Common bile duct is top-normal at 0.6 cm. There is no intrahepatic ductal dilation. Common bile duct measures 0.6 cm in diameter. RIGHT KIDNEY: Normal size. Normal echogenicity. No solid mass or cyst. No hydronephrosis. Measures 11 cm in length. OTHER: No other significant findings. THIS IS AN ELECTRONICALLY VERIFIED FINAL REPORT 09/17/2020 10:52 AM - Electronically signed by Nael Rosa M.D. CH: MELVIN Report ID: [id number] Reading Location: [place] [address] IMPRESSION: Cholelithiasis with positive sonographic Cooper's sign suspicious for acute cholecystitis. However there is no gallbladder wall thickening or pericholecystic fluid. If further assessment were needed, HIDA scan could be considered. Jake Flores MD IMG US ORDERABLES Final Re sult * WAYNE KEITH HEPARIN/SST TOP TUBE (09/17/2020 9:57 AM BUS PERSON DISHWASHER) Blood Venipuncture / Unknown 09/17/2020 9:57 AM BUS PERSON DISHWASHER 09/17/2020 10:26 AM BUS PERSON DISHWASHER Jake Flores MD HEMATOLOGY ORDERABLES Georgette l Result Performing Organization Address City/[facility]/ZIP Co de Phone Number [facility] [address] [place] [address] * Lavender Top Tube (09/17/2020 9:57 AM BUS PERSON DISHWASHER) Blood Venipuncture / Unknown 09/17/2020 9:57 AM BUS PERSON DISHWASHER 09/17/2020 10:26 AM BUS PERSON DISHWASHER Jake Flores MD HEMATOLOGY ORDERABLES Georgette l Result [facility] [address] [place] [address] * Gold Top Tube (09/17/2020 9:57 AM BUS PERSON DISHWASHER) Blood Venipuncture / Unknown 09/17/2020 9:57 AM BUS PERSON DISHWASHER 09/17/2020 10:26 AM BUS PERSON DISHWASHER Jake Flores MD CHEMISTRY ORDERABLES Final Result Performing Organization Address City/[facility]/ZIP Co de Phone Number [facility] [address] [place] [address] * Blue Top Tube (09/17/2020 9:57 AM BUS PERSON DISHWASHER) Blood Venipuncture / Unknown 09/17/2020 9:57 AM BUS PERSON DISHWASHER 09/17/2020 10:26 AM BUS PERSON DISHWASHER Jake Flores MD HEMATOLOGY ORDERABLES Georgette l Result Performing Organization Address City/[facility] Co de Phone Number [facility] [address] [place] [address] * CBC with Auto Differential (09/17/2020 9:57 AM BUS PERSON DISHWASHER) WBC 6.72 4.00 - 12.00 10(3)/mcL 09/17/2020 10:11 AM BUS PERSON DISHWASHER [facility] RBC 5.02 4.40 - 5.80 10(6)/mcL 09/17/2020 10:11 AM BUS PERSON DISHWASHER [facility] HEMOGLOBIN (HGB) 15.5 13.0 - 16.5 g/dL 09/17/2020 10:11 AM BUS PERSON DISHWASHER [facility] HEMATOCRIT (HCT) 47.0 38.0 - 50.0 % 09/17/2020 10:11 AM BUS PERSON DISHWASHER [facility] MCV 93.6 82.0 - 96.0 fL 09/17/2020 10:11 AM BUS PERSON DISHWASHER [facility] MCH 30.9 26.0 - 32.0 pg 09/17/2020 10:11 AM [facility] MCHC 33.0 31.0 - 36.0 g/dL 09/17/2020 10:11 AM [facility] PLATELET COUNT 345 140 - 440 10(3)/[facility] [place] 09/17/2020 10:11 AM [facility] RDW 12.0 11.8 - 15.5 % 09/17/2020 10:11 AM [facility] MPV 10.9 8.0 - 12.6 fL 09/17/2020 10:11 AM [facility] NEUTROPHILS 56.8 40.0 - 68.0 % 09/17/2020 10:11 AM [facility] LYMPHOCYTES 31.3 19.0 - 49.0 % 09/17/2020 10:11 AM [facility] [facility] MONOCYTES 7.6 3.0 - 13.0 % 09/17/2020 10:11 AM [facility] EOSINOPHILS 3.3 0.0 - 8.0 % 09/17/2020 10:11 AM [facility] BASOPHILS 1.0 0.0 - 1.0 % 09/17/2020 10:11 AM [facility] ABSOLUTE NEUTROPHILS 3.82 1.40 - 5.30 10(3)/[facility] [place] 09/17/2020 10:11 AM [facility] ABSOLUTE LYMPHOCYTES 2.10 0.90 - 3.30 10(3)/[facility] [place] 09/17/2020 10:11 AM [facility] ABSOLUTE MONOCYTES 0.51 0.10 - 0.90 10(3)/[facility] [place] 09/17/2020 10:11 AM [facility] ABSOLUTE EOSINOPHIL 0.22 0.00 - 0.50 10(3)/[facility] [place] 09/17/2020 10:11 AM [facility] ABSOLUTE BASOPHILS 0.07 0.00 - 0.10 10(3)/[facility] [place] 09/17/2020 10:11 AM [facility] NRBC PER 100 WBC 0 09/17/20 20 10:11 AM [facility] Blood Venipuncture / Unknown 09/17/2020 9:57 AM BUS PERSON DISHWASHER 09/17/2020 10:09 AM [employer] PERSON DISHWASHER us Jake Flores MD HEMATOLOGY ORDERABLES Georgette l Result [facility] [place] [address] * Lipase [id number] (09/17/2020 9:57 AM BUS PERSON DISHWASHER) LIPASE 21.2 13 - 60 U/L 09/17/2020 10:36 AM [facility] PERSON DISHWASHER [facility] Blood Venipuncture / Unknown 09/17/2020 9:57 AM BUS PERSON DISHWASHER 09/17/2020 10:09 AM BUS PERSON DISHWASHER us Jake Flores MD CHEMISTRY ORDERABLES Final Result Performing Organization Address [facility] Co de Phone Number [facility] [address] [place] [address] * CMP (Comprehensive Metabolic Panel) (09/17/2020 9:57 AM BUS PERSON DISHWASHER) SODIUM 137 136 - 144 mmol/L 09/17/2020 10:36 AM [employer] PERSON DISHWASHER [facility] POTASSIUM 4.1 3.5 - 5.1 mmol/L 09/17/2020 10:36 AM [employer] PERSON DISHWASHER [facility] CHLORIDE 101 100 - 110 mmol/L 09/17/2020 10:36 AM [employer] PERSON DISHWASHER [facility] CO2, VENOUS 27 22 - 32 mmol/L 09/17/2020 10:36 AM [employer] PERSON DISHWASHER [facility] ANION GAP 13.1 8.0 - 20.0 mmol/L 09/17/2020 10:36 AM [employer] PERSON DISHWASHER [facility] GLUCOSE 99 70 - 99 mg/dL 09/17/2020 10:36 AM [employer] PERSON DISHWASHER [facility] BUN 13 6 - 20 mg/dL 09/17/2020 10:36 AM [facility] CREATININE, BLOOD 0.91 0.80 - 1.30 mg/dL 09/17/2020 10:36 AM [facility] BUN/CREATININE RATIO 14 12 - 20 ratio 09/17/2020 10:36 AM [facility] TOTAL PROTEIN 7.3 6.0 - 8.3 g/dL 09/17/2020 10:36 AM [facility] ALBUMIN 4.7 3.5 - 5.2 g/dL 09/17/2020 10:36 AM [facility] Comment: The colormetric methods used for the determination of Albumin may lead to falsely elevated test results in patients suffering from renal failure or insufficiency due to interference with other proteins. A/G RATIO 1.8 1.0 - 2.0 09/17/2020 10:36 AM [facility] CALCIUM 9.3 8.9 - 10.3 mg/dL 09/17/2020 10:36 AM [facility] T BILI 0.4 <=1.2 mg/dL 09/17/2020 10:36 AM [facility] SGOT (AST) 18 <=40 U/L 09/17/2020 10:36 AM [facility] SGPT (ALT) 18 <=41 U/L 09/17/2020 10:36 AM [facility] ALKALINE PHOSPHATASE 59 40 - 130 U/L 09/17/2020 10:36 AM [facility] GFR, EST. NONAFRICAN >60 >=60 09/17/2020 10:36 AM [facility] GFR, EST. >60 >=60 020 10:36 AM [facility] Comment: Creatinine Clearance is the preferred criteria for selecting drug dose adjustments in renally impaired patients. ??The GFR is provided as additional pertinent clinical information. GFR is reported in mL/min/1.73 sq m. Blood Venipuncture / Unknown 09/17/2020 9:57 AM BUS PERSON DISHWASHER 09/17/2020 10:09 AM BUS PERSON DISHWASHER us Jake Flores MD CHEMISTRY ORDERABLES Final Result [facility] [place] [address] documented in this encounter Visit Diagnoses Diagnosis Abdominal pain, right upper quadrant- Primary documented in this encounter Administered Medications Inactive Administered Medications - up to 3 most recent administrations Medication Order MAR Action Action Date Dose Rate Site ketorolac (TORADOL) injection 15 mg 15 mg, Intravenous, ONCE, 1 dose, On Tue09/17/20 at 1030 Given 09/17/2020 10:07 AM BUS PERSON DISHWASHER 15 mg ondansetron (ZOFRAN) injection 4 mg 4 mg, Intravenous, ONCE, 1 dose, On Tue09/17/20 at 1030 Given 09/17/2020 10:07 AM BUS PERSON DISHWASHER 4 mg documented in this encounter Active and Recently Administered Medications Times are shown in BUS PERSON DISHWASHER. Scheduled Medication Order 09/15/2020 09/16/2020 09/17/2020 ketorolac (TORADOL) injection 15 mg (COMPLETED) 15 mg, Intravenous, ONCE, 1 dose, On Tue09/17/20 at 1030 1007 (Given - Provid er: Faiza Campos RN) ondansetron (ZOFRAN) injection 4 mg (COMPLETED) 4 mg, Intravenous, ONCE, 1 dose, On Tue09/17/20 at 1030 1007 (Given - Provid er: Faiza Campos RN) documented in this encounter Care Teams Supervisor Fruit Grading Relationship Specialty Start Date End Date Sita Regan APRN, THALIA [address] [place] [address] PCP - General Family Medicine 12/22/18 documented as of this encounter
--- OUTSIDE RECORDS SUMMARY | 2024-10-23 01:53 | XMS_ITS | Encounter Summary ---
Author Organization [facility] Address [address] [place] [address]. [place], [place] [id number] [place] [id number] Care Team Providers Care Superintendent Power Name Role Phone Rupert Rodriguez MD Primary Care Provider Unavailable Encounter Details Date Type Department Care Team (Late st Contact Info) Description 09/06/2011 Emergency [facility] [place] [address] Rupert Rodriguez MD Social History Tobacco Use Types Packs/Day Years Used Date Smoking Tobacco: Never Assessed Sex and Gender Information Value Date Recorded Sex Assigned at Not on file Legal Sex Male 6:09 PM CDT Gender Identity Not on file Sexual Orientation Not on file documented as of this encounter Plan of Treatment Not on file documented as of this encounter Visit Diagnoses Diagnosis Headache(784.0) Headache documented in this encounter Care Teams Superintendent Power Relationship Specialty Start Date End Date Rupert Rodriguez MD PCP - General 09/06/11 documented as of this encounter
--- OUTSIDE RECORDS SUMMARY | 2024-10-23 01:53 | XMS_ITS | Referral Summary ---
Author Organization [facility] Address [address] [address] Care Team Providers Care Centrifugal Extractor Operator Name Role Phone Unavailable Primary Care Provider Unavailabl e Source Comments [facility],non-owned Affiliates and Associated Physician Practices is amultiple site organization consisting of ambulatory clinics and hospital sitesin [place] and [place]. This disclosure is being madepursuant to the Care Everywhere program and may not contain all information available regarding this patient. Last updated 18.[facility] [employer] Social History Tobacco Use Types Packs/Day Years Used Date Smoking Tobacco: Never Assessed Sex and Gender Information Value Date Recorded Sex Assigned at Not on file Gender Identity Not on file Sexual Orientation Not on file Plan of Treatment Not on file
--- OUTSIDE RECORDS SUMMARY | 2024-10-23 01:53 | XMS_ITS | Encounter Summary ---
Author Organization [facility] Address [address] 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 No scintigraphic evidence of cystic duct obstruction. Suboptimal contractile response of the gallbladder to fatty meal stimulation. Differential considerations include biliary dyskinesia and chronic cholecystitis. Narrative 10/14/2020 10:29 AM STORAGE FACILITY RENTAL CLERK EXAM DESCRIPTION: ?? NM HEPATOBILIARY WITH PHARM [...] AM T: ??10/14/2020 10:27 AM Report ID: [id number] Reading Location: ??[phone].[facility] Procedure Note Kris Jung MD - 10/14/2020 [...] signed by Kris Jung M.D. JA: MALIK Report ID: [id number] Reading Location: [phone].[facility] IMPRESSION: No scintigraphic evidence of cystic duct obstruction. Suboptimal contractile response of the gallbladder to fatty meal stimulation. Differential considerations include biliary dyskinesia and chronic cholecystitis. Sita Regan APRN, CNP [facility] [place] ORDERABLES Final R esult documented in this encounter Visit Diagnoses Diagnosis Right upper quadrant pain- Primary Abdominal pain, right upper quadrant Right upper quadrant pain Abdominal pain, right upper quadrant documented in this encounter Care Teams Snapper On Relationship Specialty Start Date End Date Sita Regan APRN, CNP [address] [place] [address] PCP - General Family Medicine 12/22/18 documented as of this encounter
--- OUTSIDE RECORDS SUMMARY | 2024-10-23 01:53 | XMS_ITS | Data Portability ---
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 Not available 05/14/2020 12:20:56 09/16/2020 09/16/2020 Verbal consent for telephone visit was obtained and phone call lasted for approximately 15 min. Not available 09/16/2020 11:04:21 Plan of Treatment Reminders Order Date Submit Date Provider Last Modified By Organization Details Last Modified Time Details Appointments None recorded . 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 - [facility] please-1 500 2019 020 [facility] (Lab), [address], [place], [address], 0 05:33:36 respirat ory allergen panel - [facility] c 2023 024 [place] [facility], [address] [facility], [address], [place], [address], 4 03:08:33 TSH, ultra-se nsitive, serum 2023 024 [place] [facility], [address], [place], [address], 4 03:08:32 CMP, serum or plasma 2023 024 [place] [facility], [address], [place], [address], 4 03:08:32 lipid panel, serum 2023 024 [place] [facility], [address], [place], [address], 4 03:08:31 CBC 2023 024 [place] [facility], [address], [place], [address], 4 03:08:34 food allergen panel, serum 2023 024 [place] [facility], [address] [place] [address], [facility] [address], [place], [address], 4 03:08:34 Referral None recorded . Procedures None recorded . Surgeries None recorded . Imaging US, abdomen 2019 020 [facility] ([facility] Scheduling, [address] [place], [address], 0 17:06:46 Medication Orders Ventolin HFA 90 mcg/actu ation aerosol inhaler 2019 020 [facility]/Pharmacy #[id number], [address] [place], [address], 4 09:48:33 amoxicil shyann 500 mg capsule 2019 020 [facility]acy #[id number], [address] [place], [address], 0 15:27:31 cetirizi ne 10 mg tablet 2019 020 [facility]/Pharmacy #[id number], [address] [place], [address], 4 09:48:36 Zithroma x Z-Joe 250 mg tablet 2019 [id number] [address] [place], [address], 0 10:28:43 Medrol (Joe) 4 mg tablets in a dose pack 2019 020 [id number] [address] [place], [address], 0 10:28:50 cetirizi ne 10 mg tablet 2019 [id number] [address] [place], [address], 4 09:48:36 ofloxaci n 0.3 % ear drops 2023 024 [id number] [address] [place], [address], 4 10:24:20 Patient TargetsNo targets recorded. Patient Instructions Encounter Date Encounter Id Patient Instructions Last Modified By Organization Details Last Modified Time 02/05/2020 [id number] Acute Sinusitis: Care Instructions Not available 02/05/2020 08:56:25 Take all antibiotics prescribed to you. If any fever or increase in pain, call/return to office. Not available 02/05/2020 08:56:40 follow up as needed Not available 02/05/2020 08:56:50 05/14/2020 [id number] Acute Sinusitis: Care Instructions Not available 05/14/2020 12:21:27 Take all antibiotics prescribed to you. If any fever or increase in pain, call/return to office. Not available 05/14/2020 12:21:34 follow up as needed Not available 05/14/2020 12:21:41 09/16/2020 [id number] Increase clear fluids. BRAT (bananas, rice, applesauce, toast) diet. If pain increases or if fever, go to ER. May need to f/u with GI if persists custodial. Keep log of foods/symptoms. Not available 09/16/2020 11:05:13 Plan pending imaging results. f/u as needed DWP barriers to care: none Not available 09/16/2020 11:05:19 05/17/2024 [id number] A healthy lifestyle: care instructions Not available 05/17/2024 10:24:02 eustachian tube problems: care instructions [email or web address] Not available 05/17/2024 10:24:02 Avoid potential triggers, take allergy medication daily. Sleep with windows closed and replace filters in HVAC regularly. Not available 05/17/2024 10:25:10 dwp labs needed, plan pending results [email or web address] Not available 05/17/2024 10:25:16 Reason for Referral None Reported. 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 A negat anne marie resul t does not precl ude the possi bilit y of 2019- nCoV infec tion since the adequ acy of sampl e colle ction and/o r low viral burde n may resul t in the prese nce of viral nucle ic acids level s below the elisa tical sensi tivit y of this test metho d. 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 This test is only autho rized for the durat ion of the decla ratio n and the circu mstan vivian that exist to justi fy the autho rizat ion of the emerg ency use of in vitro diagn ostic tests for the detec tion of SARS- CoV-2 virus and/o r diagn osis of COVID -19 infec tion under secti on 564 (b) (1) of the Act. 11 U.S.C . 360bb b-3 (b) (1), unles s the autho rizat ion is termi nated or revok ed soone r. 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 This testi ng was perfo rmed in the [facility] [place] [address] (CLIA Licen se #[id number], CAP #[id number], AU-ID #[id number]). 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 y speci men covidcom6 Facts heet for healt hcare provi ders: https ://ww w.fda .gov/ media /1362 56/do wnloa d Facts heet for patie nts: https ://ww w.fda .gov/ media /1362 57/do wnloa d Not Available [facility] (Lab) [address] [place], [address], 05/14/2020 05:33:36 05/17/20 24 05/18/2024 LIPID PANEL cholesterol, total 142 mg/dL 100-19 9 Not Available [facility] ([facility]) [address] [place], [address], 05/22/2024 03:08:31 05/17/20 24 05/18/2024 LIPID PANEL triglyceride s 62 mg/dL 0-149 Not Available [facility] ([facility]) [address] [facility], [place], [address], 05/22/2024 03:08:31 05/17/20 24 05/18/2024 LIPID PANEL HDL cholesterol 35 mg/dL >39 below low normal Not Available [facility] ([facility]) [address] [facility], [place], [address], 05/22/2024 03:08:31 05/17/20 24 05/18/2024 LIPID PANEL VLDL cholesterol fernando 13 mg/dL 5-40 Not Available [facility] ([facility]) [address] [facility] [place], [address], 05/22/2024 03:08:31 05/17/20 24 05/18/2024 LIPID PANEL LDL chol calc ([facility]) 94 mg/dL 0-99 Not Available [facility] ([facility]) [address] [facility] [place], [address], 05/22/2024 03:08:31 05/17/20 24 05/18/2024 COMP. METAB OLIC PANEL (14) glucose 97 mg/dL 70-99 Not Available [facility] ([facility]) [address] [facility] [place], [address], 05/22/2024 03:08:31 05/17/20 24 05/18/2024 COMP. METAB OLIC PANEL (14) BUN 12 mg/dL 6-24 Not Available [facility] ([facility]) [address] [facility] [place], [address], 05/22/2024 03:08:31 05/17/20 24 05/18/2024 COMP. METAB OLIC PANEL (14) creatinine 1.03 mg/dL 0.76-1 .27 Not Available [facility] ([facility]) [address] [facility] [place], [address], 05/22/2024 03:08:31 05/17/20 24 05/18/2024 COMP. METAB OLIC PANEL (14) eGFR 94 mL/mi n/1.7 3 >59 Not Available [facility] ([facility]) [address], [place], [address], 05/22/2024 03:08:31 05/17/20 24 05/18/2024 COMP. METAB OLIC PANEL (14) BUN/creatini ne ratio 12 9-20 Not Available [facility] ([facility]) [address], [place], [address], 05/22/2024 03:08:31 05/17/20 24 05/18/2024 COMP. METAB OLIC PANEL (14) sodium 140 mmol/ L 134-14 4 Not Available [facility] ([facility]) [address], [place], [address], 05/22/2024 03:08:31 05/17/20 24 05/18/2024 COMP. METAB OLIC PANEL (14) potassium 4.7 mmol/ L 3.5-5. 2 Not Available [facility] ([facility]) [address], [place], [address], 05/22/2024 03:08:31 05/17/20 24 05/18/2024 COMP. METAB OLIC PANEL (14) chloride 104 mmol/ L 96-106 Not Available [facility] ([facility]) [address] [facility] [place], [address], 05/22/2024 03:08:31 05/17/20 24 05/18/2024 COMP. METAB OLIC PANEL (14) carbon dioxide, total 24 mmol/ L 20-29 Not Available [facility] ([facility]) [address] [facility] [place], [address], 05/22/2024 03:08:31 05/17/20 24 05/18/2024 COMP. METAB OLIC PANEL (14) calcium 10.1 mg/dL 8.7-10 .2 Not Available [facility] ([place] [facility]) [address] [facility] [place], [address], 05/22/2024 03:08:31 05/17/20 24 05/18/2024 COMP. METAB OLIC PANEL (14) protein, total 7.0 g/dL 6.0-8. 5 Not Available [facility] ([facility]) [address] [place], [address], 05/22/2024 03:08:31 05/17/20 24 05/18/2024 COMP. METAB OLIC PANEL (14) albumin 4.5 g/dL 4.1-5. 1 Not Available [facility] ([facility]) [address] [place], [address], 05/22/2024 03:08:31 05/17/20 24 05/18/2024 COMP. METAB OLIC PANEL (14) globulin, total 2.5 g/dL 1.5-4. 5 Not Available [facility] ([facility]) [address] [place], [address], 05/22/2024 03:08:31 05/17/20 24 05/18/2024 COMP. METAB OLIC PANEL (14) bilirubin, total 0.7 mg/dL 0.0-1. 2 Not Available [facility] ([facility]) [address] [place], [address], 05/22/2024 03:08:31 05/17/20 24 05/18/2024 COMP. METAB OLIC PANEL (14) alkaline phosphatase 70 IU/L 44-121 Not Available [facility] ([facility]) [address] [place], [address], 05/22/2024 03:08:31 05/17/20 24 05/18/2024 COMP. METAB OLIC PANEL (14) AST (SGOT) 19 IU/L 0-40 Not Available [facility] ([facility]) [address] [place], [address], 05/22/2024 03:08:31 05/17/20 24 05/18/2024 COMP. METAB OLIC PANEL (14) ALT (SGPT) 23 IU/L 0-44 Not Available [facility] ([facility]) [address] [facility], [place], [address], 05/22/2024 03:08:31 05/17/20 24 05/18/2024 TSH RFX ON ABNOR MAL TO FREE T4 TSH 1.110 uIU/m L 0.450- 4.500 Not Available [facility] ([facility]) [address] [facility], [place], [address], 05/22/2024 03:08:32 05/17/20 24 05/17/2024 ALLER GENS W/TOT AL IGE AREA 8 class description COMMEN T Level s of Speci fic IgE Class Descr iptio n of Class ----- ----- ----- ----- ----- -- ----- ----- ----- ----- ----- < 0.10 0 Negat anne marie 0.10 - 0.31 0/I Equiv ocal/ Low 0.32 - 0.55 I Low 0.56 - 1.40 II Moder ate 1.41 - 3.90 III High 3.91 - 19.00 IV Very High 19.01 - 100.0 0 V Very High >100. 00 Very High Not Available [facility] ([facility]) [address] [facility], [place], [address], 05/22/2024 03:08:33 05/17/20 24 05/22/2024 ALLER GENS W/TOT AL IGE AREA 8 immunoglobul in E, total 36 IU/mL 6-495 Not Available [facility] ([facility]) [address] [facility], [place], [address], 05/22/2024 03:08:33 05/17/20 24 05/22/2024 ALLER GENS W/TOT AL IGE AREA 8 G360-XzJ D pteronyssinu s <0.10 kU/L class0 Not Available [facility] ([facility]) [address] [place], [address], 05/22/2024 03:08:33 05/17/20 24 05/22/2024 ALLER GENS W/TOT AL IGE AREA 8 T142-DbK D farinae <0.10 Not Available [facility] ([facility]) [address] [place], [address], 05/22/2024 03:08:33 05/17/20 24 05/22/2024 ALLER GENS W/TOT AL IGE AREA 8 T262-PjJ CAT dander <0.10 Not Available [facility] ([facility]) [address] [facility], [place], [address], 05/22/2024 03:08:33 05/17/20 24 05/22/2024 ALLER GENS W/TOT AL IGE AREA 8 T902-QhG dog dander <0.10 Not Available [facility] ([facility]) [address] [place], [address], 05/22/2024 03:08:33 05/17/20 24 05/22/2024 ALLER GENS W/TOT AL IGE AREA 8 g353-NlU bermuda grass 0.33 kU/L classi abnormal Not Available [facility] ([facility]) [address] [place], [address], 05/22/2024 03:08:33 05/17/20 24 05/22/2024 ALLER GENS W/TOT AL IGE AREA 8 e190-PsF elizabeth grass 0.12 kU/L class0 /I abnormal Not Available [facility] ([facility]) [address] [place], [address], 05/22/2024 03:08:33 05/17/20 24 05/22/2024 ALLER GENS W/TOT AL IGE AREA 8 A462-EdX cockroach, czech <0.10 kU/L class0 Not Available [facility] ([facility]) [address] [facility], [place], [address], 05/22/2024 03:08:33 05/17/20 24 05/22/2024 ALLER GENS W/TOT AL IGE AREA 8 T148-VbN penicillium chrysogen <0.10 Not Available [facility] ([place] [facility]) [address] [facility], [place], [address], 05/22/2024 03:08:33 05/17/20 24 05/22/2024 ALLER GENS W/TOT AL IGE AREA 8 L389-YlU cladosporium herbarum <0.10 Not Available [facility] ([facility]) [address] [facility], [place], [address], 05/22/2024 03:08:33 05/17/20 24 05/22/2024 ALLER GENS W/TOT AL IGE AREA 8 D451-EbS aspergillus fumigatus <0.10 Not Available [facility] ([place] [facility]) [address] [facility], [place], [address], 05/22/2024 03:08:33 05/17/20 24 05/22/2024 ALLER GENS W/TOT AL IGE AREA 8 Q586-LvL alternaria alternata <0.10 Not Available [facility] ([place] [facility]) [address] [facility], [place], [address], 05/22/2024 03:08:33 05/17/20 24 05/22/2024 ALLER GENS W/TOT AL IGE AREA 8 H995-YlF maple/box elder 0.15 kU/L class0 /I abnormal Not Available [facility] ([facility]) [address] [place], [address], 05/22/2024 03:08:33 05/17/20 24 05/22/2024 ALLER GENS W/TOT AL IGE AREA 8 B250-KhX cedar, mountain 0.27 kU/L class0 /I abnormal Not Available [facility] ([facility]) [address] [facility], [place], [address], 05/22/2024 03:08:33 05/17/20 24 05/22/2024 ALLER GENS W/TOT AL IGE AREA 8 H547-DhG oak, white <0.10 kU/L class0 Not Available [facility] ([place] [facility]) [address] [facility], [place], [address], 05/22/2024 03:08:33 05/17/20 24 05/22/2024 ALLER GENS W/TOT AL IGE AREA 8 N404-PkF elm, kenyan 0.47 kU/L classi abnormal Not Available [facility] ([facility]) [address] [facility], [place], [address], 05/22/2024 03:08:33 05/17/20 24 05/22/2024 ALLER GENS W/TOT AL IGE AREA 8 J884-CcR maple leaf sycamore <0.10 kU/L class0 Not Available [facility] ([place] [facility]) [address] [facility], [place], [address], 05/22/2024 03:08:33 05/17/20 24 05/22/2024 ALLER GENS W/TOT AL IGE AREA 8 O977-HyK cottonwood <0.10 Not Available [facility] ([place] [facility]) [address] [facility], [place], [address], 05/22/2024 03:08:33 05/17/20 24 05/22/2024 ALLER GENS W/TOT AL IGE AREA 8 G913-YuS nathan, white <0.10 Not Available [facility] ([place] [facility]) [address] [facility], [place], [address], 05/22/2024 03:08:33 05/17/20 24 05/22/2024 ALLER GENS W/TOT AL IGE AREA 8 C294-AwE walnut <0.10 Not Available [facility] ([facility]) [address] [facility], [place], [address], 05/22/2024 03:08:33 05/17/20 24 05/22/2024 ALLER GENS W/TOT AL IGE AREA 8 Y834-QlM pecan, hickory <0.10 Not Available [facility] ([facility]) [address] [facility], [place], [address], 05/22/2024 03:08:33 05/17/20 24 05/22/2024 ALLER GENS W/TOT AL IGE AREA 8 I399-RkS white mulberry <0.10 Not Available [facility] ([facility]) [address] [facility], [place], [address], 05/22/2024 03:08:33 05/17/20 24 05/22/2024 ALLER GENS W/TOT AL IGE AREA 8 X040-NdD ragweed, short <0.10 Not Available [facility] ([facility]) [address] [facility], [place], [address], 05/22/2024 03:08:33 05/17/20 24 05/22/2024 ALLER GENS W/TOT AL IGE AREA 8 D806-FtP thistle, scottish <0.10 Not Available [facility] ([facility]) [address] [facility], [place], [address], 05/22/2024 03:08:33 05/17/20 24 05/22/2024 ALLER GENS W/TOT AL IGE AREA 8 M836-CyX pigweed, common 0.33 kU/L classi abnormal Not Available [facility] ([facility]) [address] [facility], [place], [address], 05/22/2024 03:08:33 05/17/20 24 05/22/2024 ALLER GENS W/TOT AL IGE AREA 8 Y009-ByD rough marshelder 0.28 kU/L class0 /I abnormal Not Available [facility] ([facility]) [address] [place], [address], 05/22/2024 03:08:33 05/17/20 24 05/22/2024 ALLER GENS W/TOT AL IGE AREA 8 J386-HzL mouse urine <0.10 kU/L class0 Not Available [facility] ([facility]) [address] [place], [address], 05/22/2024 03:08:33 05/17/20 24 05/22/2024 FOOD ALLER GY PROFI LE Y901-ReK egg white <0.10 Not Available [facility] ([facility]) [address] [place], [address], 05/22/2024 03:08:34 05/17/20 24 05/22/2024 FOOD ALLER GY PROFI LE G348-JwU peanut 2.08 kU/L classi ii abnormal Not Available [facility] ([facility]) [address] [facility], [place], [address], 05/22/2024 03:08:34 05/17/20 24 05/22/2024 FOOD ALLER GY PROFI LE Z466-VzM soybean 0.44 kU/L classi abnormal Not Available [facility] ([facility]) [address] [place], [address], 05/22/2024 03:08:34 05/17/20 24 05/22/2024 FOOD ALLER GY PROFI LE T733-VmV milk <0.10 kU/L class0 Not Available [facility] ([facility]) [address] [place], [address], 05/22/2024 03:08:34 05/17/20 24 05/22/2024 FOOD ALLER GY PROFI LE M868-BhQ clam <0.10 Not Available [facility] ([facility]) [address] [place], [address], 05/22/2024 03:08:34 05/17/20 24 05/22/2024 FOOD ALLER GY PROFI LE M320-YgE shrimp <0.10 Not Available [facility] ([facility]) [address] [place], [address], 05/22/2024 03:08:34 05/17/20 24 05/22/2024 FOOD ALLER GY PROFI LE V727-PiG walnut 1.19 kU/L classi i abnormal Not Available [facility] ([facility]) [address] [place], [address], 05/22/2024 03:08:34 05/17/20 24 05/22/2024 FOOD ALLER GY PROFI LE F294-TiF codfish <0.10 kU/L class0 Not Available [facility] ([facility]) [address] [place], [address], 05/22/2024 03:08:34 05/17/20 24 05/22/2024 FOOD ALLER GY PROFI LE Y888-UrQ scallop <0.10 Not Available [facility] ([facility]) [address] [place], [address], 05/22/2024 03:08:34 05/17/20 24 05/22/2024 FOOD ALLER GY PROFI LE P653-BvM wheat 0.28 kU/L class0 /I abnormal Not Available [facility] ([facility]) [address] [place], [address], 05/22/2024 03:08:34 05/17/20 24 05/22/2024 FOOD ALLER GY PROFI LE P739-AzH corn 1.24 kU/L classi i abnormal Not Available [facility] ([facility]) [address] [place], [address], 05/22/2024 03:08:34 07/11/05/22/2024 FOOD ALLER GY PROFI LE C367-MnQ sesame seed 1.51 kU/L classi ii abnormal Not Available [facility] ([facility]) [address] [facility], [place], [address], 05/22/2024 03:08:34 05/17/20 24 05/18/2024 CBC, PLATE LET, NO DIFFE RENTI AL WBC 6.9 x10e3 /uL 3.4-10 .8 Not Available [facility] ([facility]) [address] [facility], [place], [address], 05/22/2024 03:08:34 05/17/2005/18/2024 CBC, PLATE LET, NO DIFFE RENTI AL RBC 5.24 x10e6 /uL 4.14-5 .80 Not Available [facility] ([facility]) [address] [facility], [place], [address], 05/22/2024 03:08:34 05/17/2005/18/2024 CBC, PLATE LET, NO DIFFE RENTI AL hemoglobin 16.0 g/dL 13.0-1 7.7 Not Available [facility] ([facility]) [address] [facility], [place], [address], 05/22/2024 03:08:34 05/17/2005/18/2024 CBC, PLATE LET, NO DIFFE RENTI AL hematocrit 49.4 % 37.5-5 1.0 Not Available [facility] ([facility]) [address] [place], [address], 05/22/2024 03:08:34 05/17/2005/18/2024 CBC, PLATE LET, NO DIFFE RENTI AL MCV 94 fL 79-97 Not Available [facility] ([facility]) [address] [place], [address], 05/22/2024 03:08:34 07/11/20 24 05/18/2024 CBC, PLATE LET, NO DIFFE RENTI AL MCH 30.5 pg 26.6-3 3.0 Not Available [facility] ([facility]) [address] [facility], [place], [address], 05/22/2024 03:08:34 05/17/20 24 05/18/2024 CBC, PLATE LET, NO DIFFE RENTI AL MCHC 32.4 g/dL 31.5-3 5.7 Not Available [facility] ([facility]) [address] [facility], [place], [address], 05/22/2024 03:08:34 05/17/20 24 05/18/2024 CBC, PLATE LET, NO DIFFE RENTI AL RDW 12.5 % 11.6-1 5.4 Not Available [facility] ([facility]) [address] [facility], [place], [address], 05/22/2024 03:08:34 05/17/20 24 05/18/2024 CBC, PLATE LET, NO DIFFE RENTI AL platelets 325 x10e3 /uL 150-45 0 Not Available [facility] ([facility]) [address] [facility], [place], [address], 05/22/2024 03:08:34 09/25/20 20 09/17/2020 US, abdom en No observ ation record ed. [facility]) Scheduling [address] [place], [address], 05/17/2024 10:27:37 10/14/20 20 10/14/2020 NM, hepat obili sherry scan, w/ CCK No observ ation record ed. [facility] ([facility]) Registration/ Lab [address] [place], [address], 05/17/2024 10:27:37 Result Notes None recorded. Problems Name Problem SNOMED Code Status Onset Date Resolution Date Notes Provider Name and Address Organization Details Recorded Time Obese [id number] Active 2018 Sita Fregoso APN, SPECIALTY DEVELOPMENT CONSULTANT-C Attn: Lydia sin,[address] [facility], [place], [address], [facility] 4 10:05:38 Foot pain [id number] Active 2018 Sita Fregoso APN, SPECIALTY DEVELOPMENT CONSULTANT-C Attn: Lydia sin,[address] [facility], [place], [address], [facility] 4 10:05:38 Tobacco dependence syndrome [id number] Active 2018 Sita Fregoso APN, SPECIALTY DEVELOPMENT CONSULTANT-C Attn: Lydia sin,[address]40 [facility], [place], [address], [facility] 4 10:05:38 Generalized anxiety disorder 42508358 Active 2018 Sita Fregoso APN SPECIALTY DEVELOPMENT CONSULTANT-C Attn: Lydia sin,[address] [facility], [place], [address], [facility] 4 10:05:38 Posterior rhinorrhea 24968967 Active 2019 Sita Fregoso APN, SPECIALTY DEVELOPMENT CONSULTANT-C Attn: Lydia sin,[address] [facility], [place], [address], [facility] 4 10:05:38 Problem Notes None recorded. Procedures Surgical History Date Name Laterality Status Provider Name and Address Organization Details Recorded Time 11/07/19 20 Cholecystectomy completed EFRAIN Boyd [facility] 05/17/2024 09:52:38 Appendectomy completed Ban Small MA [facility] 12/12/2018 10:11:05 Imaging Results Imaging Date Name Status LastModified by Organization Details LastModified Time 09/17/2020 US, abdomen completed [employer] [facility] ([facility]) Scheduling [address] [place], [address], 05/17/2024 10:27:37 10/14/2020 NM, hepatobiliary scan, w/ CCK completed [employer] [facility] ([facility]) Registration/Lab [address] [place], [address], 05/17/2024 10:27:37 Procedure Notes None recorded. Medical Equipment None Reported. Allergies Allergen ID Allergen Name Allergen Category Reaction Reaction Severity Criticality Documentation Date Start Date Code Code System Note Provider Name and Address Organization Details Recorded Time 191071 Substance with sulfonami de structure and antibacte rial mechanism of action (substanc e) medicatio n Not available Not available Not available 12/12/2018 58541 8003 SNOMED BANDAR [place], [facility] 9 10:10:27 512289 Flonase medicatio n Not available Not available Not available 08/14/2019 83292 RxNorm foggy head EFRAIN Boyd, [facility] 4 09:48:30 Medications Name Sig Start Date Stop Date Status Note LastModified by Organization Details LastModified Time amoxicillin 500 mg capsule Take 1 capsule every 8 hours by oral route for 10 days. 05/12 completed Not Available Not Available Not Available cetirizine 10 mg tablet Take 1 tablet every day by oral route. 05/17 completed Not Available Not Available Not Available azithromyci n 250 mg tablet TAKE 2 TABLETS (500 MG) BY ORAL ROUTE ONCE DAILY FOR 1 DAY THEN 1 TABLET (250 MG) BY ORAL ROUTE ONCE DAILY FOR 4 DAYS 09/16 completed Not Available Not Available Not Available ibuprofen 800 mg tablet TAKE 1 TABLET BY MOUTH THREE TIMES A DAY NEEDED 05/17 completed Not Available Not Available Not Available ofloxacin 0.3 % ear drops INSTILL 10 DROPS INTO AFFECTED EAR(S) BY OTIC ROUTE ONCE DAILY X 7 DAYS active Not Available Not Available No t Available methylpredn isolone 4 mg tablets in a dose pack Take 1 dose pk by oral route as directed. 09/16 completed Not Available Not Available Not Available albuterol sulfate HFA 90 mcg/actuati on aerosol inhaler Inhale 2 puffs every 4 hours by inhalatio n route as needed. 05/17 completed Not Available Not Available Not Available amoxicillin 875 mg-potassiu m clavulanate 125 mg tablet Take 1 tablet every 12 hours by oral route for 3 days. 08/14 completed Not Available Not Available Not Available Vitals Date Recorded Body height Provider Name an d Address Organization Details Last Updated DateTime 05/12/2020 172.72 cm Ban Small MA [facility] 2019 15:27:43 Date Recorded Body height Provider Name an d Address Organization Details Last Updated DateTime 05/14/2020 172.72 cm Ban Small MA [facility] 2019 12:05:48 Date Recorded Body height Body mass index (BMI) Body weight Oxygen saturation Oxygen saturation in Arterial blood by Pulse oximetry Respiratory rate Body temperature Heart rate Systolic blood pressure Diastolic blood pressure Provider Name and Address Organization Details Last Updated DateTime 4 172.72 cm 35.1 kg/m2 759504. 84 g 96 % 96 % 16 /min 97.5 [degF] 74 /min 114 mm[Hg] 76 mm[Hg] EFRAIN Boyd [facility] 4 09:54:11 Social History Question Answer Notes LastModified by Organizat ion Details LastModified Time Tobacco Smoking Status Former Smoker vape Sita Fregoso APN, SPECIALTY DEVELOPMENT CONSULTANT-C Attn: Accounting[address] [place], [address], [facility] 12/12/2018 10:23:32 Do You Have An Advance Directive? No Information not available 12/12/2018 What Is Your Level Of Alcohol Consumption? Occasional Information not available 05/17/2024 Are You Blind Or Do You Have Difficulty Seeing? No Information not available 05/17/2024 What Is Your Level Of Caffeine Consumption? Heavy Tea Information not available 05/17/2024 How Much Tobacco Do You Chew? None Information not available 12/12/2018 In The 14 Days Before Symptom Onset, Have You Had Close Contact With A Laboratory-confi rmed COVID-19 While That Case Was Ill? No Information not available 02/05/2020 In The 14 Days Before Symptom Onset, Have You Had Close Contact With A Person Who Is Under Investigation For COVID-19 While That Person Was Ill? No Information not available 02/05/2020 Have You Been To An Area Known To Be High Risk For COVID-19? No Information not available 02/05/2020 Are You Currently Employed? Yes Information not available 05/17/2024 Are You Deaf Or Do You Have Serious Difficulty Hearing? No Information not available 05/17/2024 What Type Of Diet Are You Following? REGULAR Information not available 05/17/2024 Which Illicit Or Recreational Drugs Have You Used? Marijuana Information not available 12/12/2018 Do You Or Have You Ever Used E-cigarettes Or Vape? Current User Of Electronic Cigarettes Information not available 05/17/2024 Education 12 Information no t available 12/12/2018 What Is Your Occupation? [employer] Information not available 05/17/2024 Are There Any Guns Present In Your Home? No Information not available 12/12/2018 Hard Of Hearing Or Deaf In One Or Both Ears? No Information not available 02/05/2020 Legally Blind In One Or Both Eyes? No Information not available 02/05/2020 Marital Status Informatio n not available 09/16/2020 What Was The Date Of Your Most Recent Tobacco Screening? 05/17/2024 Information not available 05/17/2024 What Is Your Relationship Status? Information not available 05/17/2024 Do You Use Your Seat Belt Or Car Seat Routinely? Yes Information not available 05/17/2024 Seat Belts Used Routinely No Information not available 12/12/2018 Smoke Alarm In Home Yes Information not available 12/12/2018 Do You Have Smoke And Carbon Monoxide Detectors In Your Home? Yes Information not available 05/17/2024 Are You Passively Exposed To Smoke? Yes Information not available 05/17/2024 Do You Or Have You Ever Used Smokeless Tobacco? Never Used Smokeless Tobacco Information not available 08/14/2019 How Much Tobacco Do You Smoke? No All Day Information not available 12/12/2018 General Stress Level Low Information not available 12/12/2018 Do You Feel Stressed (tense, Restless, Nervous, Or Anxious, Or Unable To Sleep At Night)? TO5808-1 Information not available 05/17/2024 Do You Use Any Illicit Or Recreational Drugs? Yes Heidi Information not available 05/17/2024 Do You Use Sunscreen Routinely? No Information not available 12/12/2018 Has Tobacco Cessation Counseling Been Provided? Yes Information not available 01/11/2019 On What Date Was Tobacco Cessation Counseling Provided? 05/17/2024 Information not available 05/17/2024 How Many Years Have You Smoked Tobacco? 0 Information not available 12/12/2018 Do You Or Have You Ever Used Any Other Forms Of Tobacco Or Nicotine? Yes Information not available 05/17/2024 How Many Years Have You Used E-cigarettes Or Vape? 12 05/17/24 Information not available 05/17/2024 Sex: Male Functional Status Question Answer Note LastModified by Organization D etails LastModified Time Are you able to care for yourself? Yes Information n ot available 05/17/2024 What is your exercise level? None Information not available 12/12/2018 Mental Status None recorded. Family History Relationship Description Onset Age of this Age Resolved Age Notes LastModified by Organization Details LastModified Time Father Myocardial infarction [email or web address] Not available 12/12 10:11:30 Paternal Aunt Diabetes mellitus [email or web address] Not available 05/07 09:49:41 Paternal Aunt Asthma jschulterma Not a vailable 05/17/2024 09:49:53 Paternal Uncle Diabetes mellitus jschulterma Not available 05/07 09:49:41 Medical History Condition Response Coronary Artery Disease N Other N Atrial Fibrillation N High Blood Pressure N Depression N COPD N Blood Clots N Anxiety Disorder N Muscle, Joint, or Bone Problems N Acid Reflux (GERD) N Cancer N Stroke N High Cholesterol N Liver Disease N Headaches N Kidney or Bladder Problems N Thyroid Problems N GI Problems N Skin Problems N Anemia N Heart Attack ([place]) N Diabetes N Seizures/Epilepsy N Have you had a colonoscopy in the last 1 0 years? N Asthma N Allergies N Have you had a PSA blood test in the las t year? N Substance Abuse N Hepatitis N Osteoporosis N Heart Failure N Immunizations Vaccine Type Date Status Note Provider Nam e and Address Organization Details Recorded Time Influenza, split virus, trivalent, preservative 5 completed Sita Fregoso APN, FNP-C Attn: Accounting[address] [facility], [place], [address], [facility] 05/17/2024 10:05:16 Tdap 9 completed Not Available [facility] 11/24/2019 02:37:04 Influenza, split virus, quadrivalent, preservative 9 completed Not Available [facility] 11/24/2019 02:39:49 Past Encounters Encounter ID Performer Location Encounter Start Date Encounter Closed Date Diagnosis/Indication Diagnosis SNOMED-CT Code Diagnosis ICD10 Code [id number] Sita Fregoso APN, FNP-C [facility] ([facility] [address] [place] [address] 12/12/2018 09:54:32 12/15/2018 08:51:26 Adult health examination 244545609 Z00.01 Obese 880270244 E66.9 Testicular mass 58613658 N50.89 Administra tion of diphtheria, pertussis, and tetanus vaccine 301386392 Z23 Generalize d anxiety disorder 49652510 F41.1 Foot pain 28431072 M79.6 71 Tobacco de pendence syndrome 41982097 F17.576 [id number] Sita Fregoso APN, FNP-C [facility] [address] [place] [address] 01/11/2019 08:26:01 01/12/2019 09:38:57 Sinusitis 47915410 J32.9 Wheezing 85156023 R06.2 Tobacco user 219396186 Z 72.0 [id number] Sita Fregoso APN, FNP-C [facility] [address] [place] [address] 08/14/2019 08:30:21 08/15/2019 08:46:44 Administration of influenza vaccine 66092665 Z23 Benign par oxysmal positional vertigo 634643316 H81.13 Acute otitis media 31162 03 H65.01 Dysfunctio n of eustachian tube 17040401 H68.463 [id number] Sita Fregoso APN, FNP-[facility] ([facility]) [address] [place] [address] 02/05/2020 08:17:33 02/05/2020 15:53:44 Acute sinusitis 86119687 J01.90 Posterior rhinorrhea 758 78321 R09.82 Wheezing 20174002 R06.2 [id number] F[facility] [place]-[facility] emily[place] [address] [place] [address] 05/12/2020 13:15:18 05/13/2020 16:03:05 Suspected COVID-19 132407152 Z03.425 [id number] Sita Fregoso APN, FNP-C [facility] [address] [place] [address] 05/14/2020 11:57:33 05/16/2020 09:23:59 Acute sinusitis 92588847 J01.90 Posterior rhinorrhea 758 65395 R09.82 [id number] Sita Fregoso APN, FNP-C [facility] [address] [place] [address] 09/16/2020 08:23:07 09/17/2020 05:18:55 Right upper quadrant pain 132450327 R10.11 [id number] Sita Fregoso APN, FNP-C [facility] [address] [place] [address] 05/17/2024 09:22:12 05/22/2024 13:56:28 Adult health examination 320447087 Z00.01 Obesity 072974428 E66.8 Dysfunctio n of eustachian tube 59146158 H68.003 Environmental allergy 42 0592330 T78.49XA Otitis ext lui of left ear 0187451755 719603 H60.92 Posterior rhinorrhea 758 82707 R09.82 Health Concerns Section Related Observation LastModified by Organization Detai ls LastModified Time None Recorded Concern Status LastModified by Organization Details LastModified Time None Recorded Advance Directives Directive N: Payers Encounter Date Sequence Insurance Name Policy Number Policy [place] Covered Member ID [place] Member ID Guarantor Name 02/05/2020 1 [facility] (MEDICAID HMO) [id number] Godfrey Ennisff [id number] Godfrey Niels 05/12/2020 1 [facility] (MEDICAID HMO) [id number] Godfrey Ennisff [id number] Godfrey Niels 05/14/2020 1 [facility] (MEDICAID HMO) [id number] Godfrey Niels [id number] Godfrey Niels 09/16/2020 1 [facility] (MEDICAID HMO) [id number] Godfrey Niels [id number] Godfrey Niels 05/17/2024 1 [facility] [id number] Godfrey Bowser [id number] Godfrey Bowser Notes Date Note Type Note Provider Name and Address Organization Details Recorded Time 02/05/2020 text/html Upper Respirator y SymptomsReported bypatient.Location:hea d; chest; throat Quality:productive cough;colored phlegm;congested;hacki ng cough Severity:no pain Duration:SX duration 3-4 days ago Context:no foreign travel;sick contact;smoker;allergi es; pt vapes Modifying Factors:OTC medication; Tylenol severe sinus Associated Symptoms:no shortness of breath; no wheezing; no change in number of pillows needed to sleep at night; no sweats; no fever; no significant weight gain; no significant weight loss; no vomiting; no diarrhea; no rash; no nausea;morning coughNotes:ears popping for a few weeks, sinus pressure headache, tylenol severe sinus which is helping for about 3 days and then it stops, changed it to aleve sinus which also helped a small amount, feels pressure in ears. uses flonase mist; Sita Fregoso APN, PORSCHE Attn: Accounting,[address] [place], [address], [facility] 02/05/2020 08:58:09 05/12/2020 text/html COVID ScreeningReported bypatient.Onset/Durati on of fever:no fever Associated Symptoms:cough;shortne ss of breath Context/Exposure:trave l or residence in high risk area of COVID-19; travel (where ) ([facility] 04/27/2020)COVID-19 Symptoms March 2020Reported bypatient.COVID-19 Signs and Symptomschills improving; muscle pain same; headache same; sore throat same; fatigue same Contacts and Exposureclose contact with a confirmed or suspected case of COVID-19; reside in or traveled to areas where widespread community transmission has been reported Onset/Timing:date of symptoms onset: (7 days ago) Associated Symptoms:fatigue;runny nose;body aches Farnaz forte [facility] 05/12/2020 15:39:13 05/14/2020 text/html Upper Respirator y SymptomsReported bypatient.Location:formerly [facility]; chest Quality:productive cough;congested;hackin g cough Context:no foreign travel; non-smoker;sick contact Associated Symptoms:no change in number of pillows needed to sleep at night; no sweats; no fever; no significant weight gain; no significant weight loss; no sore throat; no vomiting; no diarrhea; no rash; no nausea;green sputum;shortness of breath;wheezingNotes:t ickle in throat-sinus drainage; headache and felt chest heaviness Sita Fregoso APN, ALLI-C Attn: Accounting,[address] [place], [address], [facility] 05/14/2020 12:24:26 09/16/2020 text/html RUQ pain for ove r a week. No N& V or diarrhea. It usually happens at night and wakes him up several times at night. feels it more laterally; sharp stabbing, lasting all night; wakes him up, worse at hs, aching in am; stopped soda and only drank water and that was still happening; Pt states he will get flu shot at a pharmacy denies cp,sob,n,v,d, or any other covid symptoms Sita Fregoso APN, ALLI-C Attn: Accounting,[address] [place], [address], [facility] 09/16/2020 11:07:29 05/17/2024 text/html Still having chr onic ear infections.needs to re est care- has not had pcp since last visit here Sita Fregoso APN, SPECIALTY DEVELOPMENT CONSULTANT-C Attn: Accounting,[address] [facility], [place], [address], [facility] 05/17/2024 10:28:05
--- OUTSIDE RECORDS SUMMARY | 2024-10-23 01:53 | XMS_ITS | Encounter Summary ---
Author Organization [facility] Address [address] [place] [address] Phone Care Team Providers Care Semiconductor Wafers Tester Name Role Phone Sita Regan APRN, CNP Primary Care Provider [phone] Reason for Referral * Radiology Services (Routine) - Closed Specialty Diagnoses / Procedures Referred By Timothy ureña Referred To Contact Radiology Diagnoses Right upper quadrant pain Procedures US ABDOMEN COMPLETE Sita Regan APRN, CNP [address] [place] [address] Phone: tel: fax: Referral ID Status Reason Start Date Expiration Date Visits Re quested Visits Authorized [id number] Closed 09/16/2020 1 1 [facility] Encounter Details Date Type Department Care Team (Late st Contact Info) Description 09/16/2020 Transcribe Orders [facility] Scheduling [address] [place] [id number] Sita Regan APRN, CNP [address] [place] [address] Right upper quadrant pain (Primary Dx) Social History Tobacco Use Types Packs/Day Years Used Date Smoking Tobacco: Unknown Sex and Gender Information Value Date Recorded Sex Assigned at Not on file Legal Sex Male 5:40 PM CDT Gender Identity Not on file Sexual Orientation Not on file documented as of this encounter Plan of Treatment Scheduled Orders Name Type Priority Associated Diagnoses Orde r Schedule US ABDOMEN COMPLETE Imaging Routine Right upper quadrant pain Expected: 09/16/2020, Expires: 09/16/2021 documented as of this encounter Visit Diagnoses Diagnosis Right upper quadrant pain- Primary Abdominal pain, right upper quadrant documented in this encounter Care Teams Semiconductor Wafers Tester Relationship Specialty Start Date End Date Sita Regan APRN, THAL[place] [address] [place] [address] PCP - General Family Medicine 12/22/18 documented as of this encounter
--- OUTSIDE RECORDS SUMMARY | 2024-10-23 01:53 | XMS_ITS | Encounter Summary ---
Author Organization [employer] Care Team Providers Care Town Justice Name Role Phone Sita Regan APRN, CNP Primary Care Provider [phone] Encounter Details Date Type Department Care Team (Latest Contact Info) Description 10/14/2020 Travel Social History Tobacco Use Types Packs/Day [...] COVID-19? No / Unsure 10/14/2020 7:48 AM STATE EDITOR documented as of this encounter Plan of Treatment Not on file documented as of this encounter Visit Diagnoses Not on filedocumented in this encounter Care Teams Town Justice Relationship Specialty Start Date End Date Sita Regan APRN, CNP [address] [place] [address] PCP - General Family Medicine 12/22/18 documented as of this encounter
--- OUTSIDE RECORDS SUMMARY | 2024-10-23 01:53 | XMS_ITS | Clinical Summary ---
Author Organization [facility] Address [address] [place] [address] Care Team Providers Care Bilingual Trainer Name Role Phone Unavailable Primary Care Provider Unavailabl e Source Comments [facility],non-owned Affiliates and Associated Physician Practices is amultiple site organization consisting of ambulatory clinics and hospital sitesin [place], [place], [place] and [place]. This disclosure is being madepursuant to the Care Everywhere program and may not contain all information available regarding this patient. Last updated 18.[facility] [employer] Social History Tobacco Use Types Packs/Day Years Used Date Smoking Tobacco: Never Assessed Sex and Gender Information Value Date Recorded Sex Assigned at Not on file Gender Identity Not on file Sexual Orientation Not on file Plan of Treatment Health Maintenance Due Date Last Done Comments LIPID TESTING 1983 HIV SCREENING 1998 HEPATITIS C SCREENING 02/03/2001 DTAP/TDAP/TD VACCINES (1 - Tdap) 2002 HEPATITIS B VACCINE (1 of 3 - 19+ 3-dose series) 2002 DEPRESSION SCREENING 11/07/2023 COVID-19 VACCINE (1 - 2023-2 5 season) 2024 INFLUENZA VACCINE (#1) 2024 ZOSTER VACCINE (1 of 2) 2033 HIB VACCINE Aged Out No longer eligi ble based on patient's age to complete this topic HPV VACCINE Aged Out No longer eligi ble based on patient's age to complete this topic MENINGOCOCCAL VACCINE Aged Out No troy akhil eligible based on patient's age to complete this topic PNEUMOCOCCAL VACCINE Aged Out No long er eligible based on patient's age to complete this topic
--- OUTSIDE RECORDS SUMMARY | 2024-10-23 01:53 | XMS_ITS | Clinical Summary ---
Author Organization [facility] Address [address] [place] [address]. [place], [place] [address] [place] [address] Care Team Providers Care Patient Service Technician Pst Name Role Phone Unavailable Primary Care Provider Unavailabl e Social History Tobacco Use Types Packs/Day Years Used Date Smoking Tobacco: Never Assessed Sex and Gender Information Value Date Recorded Sex Assigned at Not on file Legal Sex Male 6:09 PM CDT Gender Identity Not on file Sexual Orientation Not on file Plan of Treatment Health Maintenance Due Date Last Done Comments Annual Physical 1986 Hepatitis C 2001 DTaP, Tdap and Td Vaccines ( 1 - Tdap) 2002 Hepatitis B Vaccines (1 of 3 - 19+ 3-dose series) 2002 COVID-19 Vaccine (2023-2 5 season) 2024 Influenza Adult (#1) 2024 HPV Vaccines Aged Out No longer eligi ble based on patient's age to complete this topic Meningococcal Vaccine Aged Out No troy akhil eligible based on patient's age to complete this topic Pneumococcal Vaccine: Pediat rics (0 to 5 Years) and At-Risk Patients (6 to 64 Years) Aged Out No longer eligible b ased on patient's age to complete this topic RSV Immunizations Under 20 Months Aged Out No longer eligible based on patient's age to complete this topic
--- OUTSIDE RECORDS SUMMARY | 2024-10-23 01:53 | XMS_ITS | Encounter Summary ---
Author Organization [facility] Address [address] [place] [address] Care Team Providers Care Beam Dyer Recessed Vat Name Role Phone Unavailable Primary Care Provider Unavailabl e Encounter Details Date Type Department Care Team (Late st Contact Info) Description 02/05/1998 Orders Only [facility] [address] [place], [place] [address] ProviderMikala MD Social History Tobacco Use Types Packs/Day Years Used Date Smoking Tobacco: Never Assessed Sex and Gender Information Value Date Recorded Sex Assigned at Not on file Gender Identity Not on file Sexual Orientation Not on file documented as of this encounter Plan of Treatment Not on file documented as of this encounter Procedures Procedure Name Priority Date/Time Associated Diagnosis Comments GROSS + MICRO EXAM BRITTANIE 02/05/1998 11 :52 AM SUGAR REPROCESS OPERATOR HEAD documented in this encounter Results * GROSS + MICRO EXAM (02/05/1998 11:52 AM SUGAR REPROCESS OPERATOR HEAD) Result CASE NUMBER [id number] Comment: ORDERING [...] (GROSS ONLY) CODE 1 CPT ??Level I ??[id number] RELEASED BY ?Eduar,CHICHI PRICE MISCELLANEOUS SAMPLES / Unknown 02/05/1998 11:52 AM SUGAR REPROCESS OPERATOR HEAD 02/05/1998 11:52 AM SUGAR REPROCESS OPERATOR HEAD Historical Provider LAB - PATHOLOGY/C YTOLOGY ORDERABLES documented in this encounter Visit Diagnoses Not on filedocumented in this encounter
--- OUTSIDE RECORDS SUMMARY | 2024-10-23 01:53 | XMS_ITS | Encounter Summary ---
Author Organization [facility] Address [address] [place] [address]. [place], [place] [address] [place] [address] Care Team Providers Care Race Engine Builder Name Role Phone Rupert Rodriguez MD Primary Care Provider Unavailable Encounter Details Date Type Department Care Team (Late st Contact Info) Description 06/28/2008 Emergency [facility] [place] [address] Rupert Rodriguez MD Social History Tobacco Use [...] on filedocumented in this encounter Care Teams Race Engine Builder Relationship Specialty Start Date End Date Rupert Rodriguez MD PCP - General 09/06/11 documented as of this encounter
--- OUTSIDE RECORDS SUMMARY | 2024-10-23 01:54 | XMS_ITS | Encounter Summary ---
Author Organization [facility] Healthcare Address [address] [place] [address] Care Team Providers Care Graduate Intern Name Role Phone JassBroSitamurtaza Pascal ACQUISITION ADVISOR Primary Care Provider [phone] Encounter Details Date Type Department Care Team (Late st Contact Info) Description 11/28/2020 8:[address] BUYER Lab [address] [address] Ja Mayo MD [address] [place] [id number] Pre-op testing Discharge Disposition: Discharge to home or self care Social History Tobacco Use Types Packs/Day Years Used Date Smoking Tobacco: Every Day Vaping Alcohol Use Standard Drinks/Week Comments Not Currently 0 (1 standard drink = 0.6 oz pur e alcohol) Sex and Gender Information Value Date Recorded Sex Assigned at Not on file Legal Sex Male 11:[address] Gender Identity Not on file Sexual Orientation Not on file documented as of this encounter Discharge Disposition Disposition Code Departure Means Destination Discharge to home or self care documented in this encounter Plan of Treatment Not on file documented as of this encounter Procedures Procedure Name Priority Date/Time Associated Diagnosis Comments COVID-19 CORONAVIRUS RNA Routine 11/28/2020 8:[address] BUYER Pre-op testing documented in this encounter Results * COVID-19 Coronavirus RNA Nasopharyngeal (11/28/2020 8:[address]YER) COVID-19 RNA Not Detected [facility] ([place]) Comment: Testing performed as a component of ??a specimen pool. ??Negative results should be treated as presumptive and, if inconsistent with clinical signs and symptoms or necessary for patient management, pooled samples should be tested individually. Negative results do not preclude SARS-CoV-2 infection and must not be used as the sole basis for patient management decisions. Negative results must be considered in the context of a patient? s recent exposures, history, presence of clinical signs and symptoms consistent with COVID-19. First COVID-19 test? Unknown [facility] ([place]) Comment:Testing performed by : [facility], [address] [place] [address], [id number] Employeed in healthcare? No [facility] ([place]) Comment:Testing performed by : [facility], [address] [place] [address], [phone] status? No [facility] ([place]) Comment:Testing performed by : [facility], [address] [place] [address], [phone] Group care resident? No [facility] ([place]) Comment:Testing performed by : [facility], [address] [place] [address], [phone] Hospitalized? No [facility] ([place]) Comment:Testing performed by : [facility], [address] [facility], [address] Is patient in ICU? No [facility] ([place]) Comment:Testing performed by : [facility], [address] [place] [address], [id number] Symptomatic as defined by CDC? No [facility] ([place]) Comment:Testing performed by : [facility], [address] [place] [address], [id number] Nasopharyngeal 11/28/2020 8: [address] 11/28/2020 1:[address]YER Narrative [facility] ([place]) - 11/28/2020 10:[address]YER What is the reason for testing?->Screening prior to scheduled procedure or surgery Ja Mayo MD LAB MICROBIOLOGY - GENERAL ORDERABLES Final Result [facility] ([place]) [address] [facility] Department [place] [address] documented in this encounter Visit Diagnoses Diagnosis Pre-op testing Unspecified pre-operative examination documented in this encounter Care Teams Graduate Intern Relationship Specialty Start Date End Date Regan, Sita Pascal NP [address] [place] [address] PCP - General Nurse Practitioner 10/23/20 documented as of this encounter
--- OUTSIDE RECORDS SUMMARY | 2024-10-23 01:54 | XMS_ITS | Encounter Summary ---
Author Organization [facility] Medical Group Address [address] [place] [address] Care Team Providers Care Rehab Liaison Name Role Phone JassBroSitamurtaza Pascal NP Primary Care Provider [phone] Encounter Details Date Type Department Care Team (Late st Contact Info) Description 12/05/2020 Telephone [facility] [address] [facility] [address] [place] [address] Nkechi Bryan LPN Social History Tobacco Use Types Packs/Day Years Used Date Smoking Tobacco: Every Day Vaping Alcohol Use Standard Drinks/Week Comments Not Currently 0 (1 standard drink = 0.6 oz pur e alcohol) Sex and Gender Information Value Date Recorded Sex Assigned at Not on file Legal Sex Male 11:53 PM BUILDING MAINTENANCE SUPERVISOR Gender Identity Not on file Sexual Orientation Not on file documented as of this encounter Miscellaneous Notes * Telephone Encounter - Nkechi Bryan LPN - 12/05/2020 11:00 AM BUILDING MAINTENANCE SUPERVISOR Phoned pt he said he cannot take the pain medication prescribed after surgery. Informed patient maytake ibuprofen. Pt verbalizes good understanding. ----- Message from Godfrey Bowser sent at 12/05/2020 10:22 AM BUILDING MAINTENANCE SUPERVISOR ----- Regarding: Prescription Question Contact: I was wobdering i had surgery on Tuesday when could i start taking my 800mg ibuprofen again? DING MAINTENANCE SUPERVISOR DING MAINTENANCE SUPERVISOR documented in this encounter Plan of Treatment Not on file documented as of this encounter Visit Diagnoses Not on filedocumented in this encounter Care Teams Rehab Liaison Relationship Specialty Start Date End Date Jass, Sita Pascal NP [address] [place] [address] PCP - General Nurse Practitioner 10/23/20 documented as of this encounter
--- OUTSIDE RECORDS SUMMARY | 2024-10-23 01:54 | XMS_ITS | Referral Summary ---
Author Organization [facility] Medical Office Building B Address [address] [place] [address] Care Team Providers Care Crystallizer Operator Name Role Phone Sita Regan NP Primary Care Provider Allergies Active Allergy Reactions Criticality Noted Date Comments Fluticasone Propionate Headache Low 10/28/2020 Vvmztkqwuuojfcp-Xmbdwfw-Dv Itching Low 9 Sulfa (Sulfonamide Antibiotics) Unknown 12/09 Medications albuterol HFA (PROVENTIL HFA,VENTOLIN HFA,PROAIR HFA) 90 mcg/actuation inhaler Inhale 2 puffs every 4 hours by inhalation route as needed. Active cetirizine (ZyrTEC) 10 mg tablet Take 10 mg by mouth daily as needed 0 Active ibuprofen (ADVIL,MOTRIN) 800 mg tablet TAKE 1 TABLET BY MOUTH THREE TIMES A DAY NEEDED 0 Active oxyCODONE-aceta minophen (PERCOCET) 5-325 mg per tabletIndicatio ns:Pain Take 1-2 tablets by mouth every 4 (four) hours as needed for pain 20 tablet 1 Active Additional Information Patient not taking.Reported on 12/15/2020 Active Problems Problem Noted Date Diagnosed Date Biliary dyskinesia 10/28/2020 Assessment & Plan (10/28/2020 12:23 PM CONSUMER ANALYST): hida scan shows EF at 0%. Ultrasound demonstrated gallstones as well. The procedure along with the risks and benefits and post operative period were discussed with the patient to which he agrees. Will plan for laparoscopic cholecystectomy. Discussed low fat diet. Dermatofibroma 10/28/2020 Assessment & Plan (10/28/2020 12:22 PM CONSUMER ANALYST): We discussed removal x3, patient states he will think about it and get back to us. Social History Tobacco Use Types Packs/Day Years Used Date Smoking Tobacco: Every Day Vaping Alcohol Use Standard Drinks/Week Comments Not Currently 0 (1 standard drink = 0.6 oz pur e alcohol) Sex and Gender Information Value Date Recorded Sex Assigned at Not on file Legal Sex Male 11:53 PM CONSUMER ANALYST Gender Identity Not on file Sexual Orientation Not on file Last Filed Vital Signs Vital Sign Reading Time Taken Comments Blood Pressure 124/79 12/15/2020 1:16 PM CONSUMER ANALYST Pulse 65 12/15/2020 1:16 PM CONSUMER ANALYST Temperature 36.5 ??C (97.7 ??F) 12/15/2020 1:16 PM CS T Respiratory Rate 20 12/01/2020 2:29 PM CONSUMER ANALYST Oxygen Saturation 97% 12/01/2020 2:29 PM CONSUMER ANALYST Inhaled Oxygen Concentration - - Weight 103.6 kg (228 lb 4.8 oz) 12/15/2020 1:16 PM CONSUMER ANALYST Height 172.7 cm (5' 8 ) 12/15/2020 1:16 PM CONSUMER ANALYST Body Mass Index 34.71 12/15/2020 1:16 PM CONSUMER ANALYST Plan of Treatment Not on file Insurance Care Teams Crystallizer Operator Relationship Specialty Start Date End Date Sita Regan NP [address] [place] [address] PCP - General Nurse Practitioner 10/23/20
--- OUTSIDE RECORDS SUMMARY | 2024-10-23 01:54 | XMS_ITS | Encounter Summary ---
Author Organization [facility] Healthcare Address [address] [place] [address] Care Team Providers Care Dental Technician Apprentice Name Role Phone Unavailable Primary Care Provider Unavailabl e Encounter Details Date Type Department Care Team (Late st Contact Info) Description 10/05/2017 11:42 PM PATIENT CLERICAL ASSISTANT - 10/06/2017 4:36 AM PATIENT CLERICAL ASSISTANT Emergency [facility] Emergency Department [address] [place] [address] Anisha Lewis MD [address] [place] [address] [id number] [place] [address] Discharge Disposition: Discharge to home or self care Social History Tobacco Use Types Packs/Day Years Used Date Smoking Tobacco: Never Assessed Sex and Gender Information Value Date Recorded Sex Assigned at Not on file Legal Sex Male 11:53 PM PATIENT CLERICAL ASSISTANT Gender Identity Not on file Sexual Orientation Not on file documented as of this encounter Discharge Disposition Disposition Code Departure Means Destination Discharge to home or self care documented in this encounter Plan of Treatment Not on file documented as of this encounter Procedures Procedure Name Priority Date/Time Associated Diagnosis Comments INFLUENZA A/B ANTIGENS, RAPID GEN LAB STAT 10/06/2017 2:30 AM PATIENT CLERICAL ASSISTANT DISCHARGE LABORATORY CUMULATIVE REPORT 10/06/2017 12:00 AM PATIENT CLERICAL ASSISTANT documented in this encounter Results * Influenza A/B antigens, rapid (10/06/2017 2:30 AM PATIENT CLERICAL ASSISTANT) Influenza A Ag Negative Negative [facility] Comment: Interpretive Data This test has an estimated 70% sensitivity and 90% specificity. Current interpretive data was last revised on 2016 Influenza B Ag Negative Negative [facility] Comment: Interpretive Data This test has an estimated 70% sensitivity and 90% specificity. Current interpretive data was last revised on 2016 Nasopharyngeal 10/06/2017 2: 30 AM PATIENT CLERICAL ASSISTANT 10/06/2017 2:48 AM PATIENT CLERICAL ASSISTANT Narrative [facility] - 10/06/2017 3:04 AM PATIENT CLERICAL ASSISTANT us Notinfile Unknown LAB BODY FLUIDS AND STOOLS ORD ERABLES Final Result [facility] [address] [address] Department [place] [address] * DISCHARGE LABORATORY CUMULATIVE REPORT (10/06/2017 12:00 AM PATIENT CLERICAL ASSISTANT) Narrative 10/06/2017 12:00 AM PATIENT CLERICAL ASSISTANT Ordered by an unspecified provider. us Historical Provider LAB BLOOD ORDERABLES Georgette l Result documented in this encounter Visit Diagnoses Not on filedocumented in this encounter
--- OUTSIDE RECORDS SUMMARY | 2024-10-23 01:54 | XMS_ITS | Encounter Summary ---
Author Organization [facility] Medical Group Address [address] [facility] [address] [place] [address] Care Team Providers Care Cylinder Die Machine Helper Name Role Phone Sita Regan NP Primary Care Provider Reason for Visit * Reason Comments GB * Consultation (Routine) - Closed Specialty Diagnoses / Procedures Referred By Timothy ureña Referred To Contact General Surgery Diagnoses Disease of gallbladder Sita Regan NP [address] [place] [address] Phone: tel: fax: Ja Mayo MD [address] [place] [address] [address], [place] [address] Phone: tel: fax: Referral ID Status Reason Start Date Expiration Date V isits Requested Visits Authorized [id number] Closed Specialty Services Required 10/22/2020 11/21/2021 1 1 Encounter Details Date Type Department Care Team (Late st Contact Info) Description 10/28/2020 11:15 AM COSMETOLOGIST Office Visit [facility] [address] [place] [address] [address] [phone] Malena Plasencia NP [address] [place] [address] [address], [place] [address] Biliary dyskinesia (Primary Dx); Dermatofibroma Social History Tobacco Use Types Packs/Day Years Used Date Smoking Tobacco: Every Day Vaping Alcohol Use Standard Drinks/Week Comments Not Currently 0 (1 standard drink = 0.6 oz pur e alcohol) Sex and Gender Information Value Date Recorded Sex Assigned at Not on file Legal Sex Male 11:53 PM COSMETOLOGIST Gender Identity Not on file Sexual Orientation Not on file documented as of this encounter Last Filed Vital Signs Vital Sign Reading Time Taken Comments Blood Pressure 131/86 10/28/2020 11:40 AM COSMETOLOGIST Pulse 68 10/28/2020 11:40 AM COSMETOLOGIST Temperature 36 ??C (96.8 ??F) 10/28/2020 11: 40 AM COSMETOLOGIST Respiratory Rate - - Oxygen Saturation - - Inhaled Oxygen Concentration - - Weight 103.8 kg (228 lb 14.4 oz) 2019 11:40 AM COSMETOLOGIST Height 172.7 cm (5' 8 ) 10/28/2020 11:4 0 AM COSMETOLOGIST Body Mass Index 34.8 10/28/2020 11:40 AM COSMETOLOGIST documented in this encounter Progress Notes * Malena Plasencia NP - 10/28/2020 11:15 AM CST Subjective/Objective Patient ID: Godfrey Bowser is a 35 y.o. male. Chief Complaint GB Other This is a chronic problem. The current episode started more than 1 year ago. The problem occurs intermittently. The problem has been waxing and waning. Associated symptoms include abdominal pain, arthralgias, myalgias, nausea and vomiting. Pertinent negatives include no change in bowel habit, chills, fatigue, fever or urinary symptoms. The symptoms are aggravated by eating and exertion. He has tried NSAIDs (ultrasound and hida scan ) for the symptoms. The treatment provided mild relief. Review of Systems Constitutional: Negative for chills, fatigue and fever. HENT: Negative. Eyes: Negative. Respiratory: Negative. Cardiovascular: Negative. Gastrointestinal: Positive for abdominal pain, nausea and vomiting. Negative for change in bowel habit. Endocrine: Negative. Genitourinary: Negative. Musculoskeletal: Positive for arthralgias, back pain and myalgias. Skin: Long standing lesions, left knee x1, left upper arm x2, painful at times after palpation Allergic/Immunologic: Negative. Neurological: Negative. Hematological: Negative. Psychiatric/Behavioral: Negative. Physical Exam Constitutional: General: He is not in acute distress. Appearance: He is obese. He is not ill-appearing, toxic-appearing or diaphoretic. HENT: Head: Normocephalic and atraumatic. Mouth/Throat: Mouth: Mucous membranes are moist. Eyes: General: No scleral icterus. Right eye: No discharge. Left eye: No discharge. Cardiovascular: Rate and Rhythm: Normal rate. Pulses: Normal pulses. Pulmonary: Effort: Pulmonary effort is normal. No respiratory distress. Abdominal: General: There is no distension. Palpations: Abdomen is soft. There is no mass. Tenderness: There is abdominal tenderness (mild epigastric tenderness on deep palp). There is no guarding. Hernia: No hernia is present. Musculoskeletal: General: No swelling, tenderness, deformity or signs of injury. Right lower leg: No edema. Left lower leg: No edema. Skin: General: Skin is warm and dry. Capillary Refill: Capillary refill takes less than 2 seconds. Coloration: Skin is not jaundiced or pale. Findings: Lesion (dermatofibroma- 6mm, left knee. left upper arm x2, approx 6mm each) present. No bruising, erythema or rash. Neurological: General: No focal deficit present. Mental Status: He is alert and oriented to person, place, and time. Gait: Gait normal. Psychiatric: Mood and Affect: Mood normal. Behavior: Behavior normal. Thought Content: Thought content normal. Judgment: Judgment normal. Assessment/Plan Diagnoses and all orders for this visit: Biliary dyskinesia (K82.8) (Primary) Assessment & Plan: hida scan shows EF at 0%. Ultrasound demonstrated gallstones as well. The procedure along with the risks and benefits and post operative period were discussed with the patient to which he agrees. Will plan for laparoscopic cholecystectomy. Discussed low fat diet. Orders: - Ambulatory referral to General Surgery Dermatofibroma (D23.9) Assessment & Plan: We discussed removal x3, patient states he will think about it and get back to us. Cosigned by Ja Mayo MD at 10/29/2020 9:42 AM COSMETOLOGIST ETOLOGIST ETOLOGIST documented in this encounter Miscellaneous Notes * Assessment & Plan Note - Malena Plasencia NP - 10/28/2020 12:22 PM CSTAssociated Problem(s): Biliary dyskinesia hida scan shows EF at 0%. Ultrasound demonstrated gallstones as well. The procedure along with the risks and benefits and post operative period were discussed with the patient to which he agrees. Will plan for laparoscopic cholecystectomy. Discussed low fat diet. ETOLOGIST * Assessment & Plan Note - Malena Plasencia NP - 10/28/2020 12:21 PM CSTAssociated Problem(s): Dermatofibroma We discussed removal x3, patient states he will think about it and get back to us. ETOLOGIST documented in this encounter Plan of Treatment Not on file documented as of this encounter Visit Diagnoses Diagnosis Biliary dyskinesia- Primary Other specified disorder of gallbladder Dermatofibroma Benign neoplasm of skin, site unspecified documented in this encounter Historical Medications * This list may reflect changes made after this encounter. ibuprofen (ADVIL,MOTRIN) 800 mg tablet TAKE 1 TABLET BY MOUTH THREE TIMES A DAY NEEDED 09/17/2020 cetirizine (ZyrTEC) 10 mg tablet Take 10 mg by mouth daily as needed 05/14/2020 albuterol HFA (PROVENTIL HFA,VENTOLIN HFA,PROAIR HFA) 90 mcg/actuation inhaler Inhale 2 puffs every 4 hours by inhalation route as needed. added in this encounter Orders Outpatient Referral Count Last Ordered Date Fir st Ordered Date AMB REFERRAL TO GENERAL SURGERY 1 0 documented in this encounter Care Teams Cylinder Die Machine Helper Relationship Specialty Start Date End Date Sita Regan NP [address] [place] [address] PCP - General Nurse Practitioner 10/23/20 documented as of this encounter
--- OUTSIDE RECORDS SUMMARY | 2024-10-23 01:54 | XMS_ITS | Clinical Summary ---
Author Organization [facility] Medical Office Building B Address [address] [place] [address] Care Team Providers Care Showplace Manager Name Role Phone Sita Regan NP Primary Care Provider [phone] Allergies Active Allergy Reactions Criticality Noted Date Comments Fluticasone Propionate Headache Low 10/28/2020 Umdiuhdxzbmllyi-Raeotxc-Qz Itching Low 9 Sulfa (Sulfonamide Antibiotics) Unknown [...] 10/28/2020 Assessment & Plan (10/28/2020 12:23 PM POWER LINE INSTALLER): hida scan shows EF at 0%. Ultrasound demonstrated gallstones as well. The procedure along with the risks and benefits and post operative period were discussed with the patient to which he agrees. Will plan for laparoscopic cholecystectomy. Discussed low fat diet. Dermatofibroma 10/28/2020 Assessment & Plan (10/28/2020 12:22 PM POWER LINE INSTALLER): We discussed removal x3, patient states he will think about it and get back to us. Surgical History Surgery Date Site/Laterality Comments APPENDECTOMY 11/07/2000 - 11/06/2001 Medical History Medical History Date Comments Motion sickness GERD (gastroesophageal reflux disease) Family History Medical History Relation Name Comments Heart disease Father Diabetes Father's Brother Diabetes Father's Sister Relation Name Status Comments Father Father's Brother Father's Sister Mother Overdose Social History Tobacco Use Types Packs/Day Years Used Date Smoking Tobacco: Every Day Vaping Alcohol Use Standard Drinks/Week Comments Not Currently 0 (1 standard drink = 0.6 oz pur e alcohol) Sex and Gender Information Value Date Recorded Sex Assigned at Not on file Legal Sex Male 11:53 PM POWER LINE INSTALLER Gender Identity Not on file Sexual Orientation Not on file Obstetrics History Last Filed Vital Signs Vital Sign Reading Time Taken Comments Blood Pressure 124/79 12/15/2020 1:16 PM POWER LINE INSTALLER Pulse 65 12/15/2020 1:16 PM POWER LINE INSTALLER Temperature 36.5 ??C (97.7 ??F) 12/15/2020 1:16 PM CS T Respiratory Rate 20 12/01/2020 2:29 PM POWER LINE INSTALLER Oxygen Saturation 97% 12/01/2020 2:29 PM POWER LINE INSTALLER Inhaled Oxygen Concentration - - Weight 103.6 kg (228 lb 4.8 oz) 12/15/2020 1:16 PM POWER LINE INSTALLER Height 172.7 cm (5' 8 ) 12/15/2020 1:16 PM POWER LINE INSTALLER Body Mass Index 34.71 12/15/2020 1:16 PM POWER LINE INSTALLER Plan of Treatment Not on file Insurance [facility] Care Teams Showplace Manager Relationship Specialty Start Date End Date Sita Regan NP [address] [place] [id number] PCP - General Nurse Practitioner 10/23/20
--- OUTSIDE RECORDS SUMMARY | 2024-10-23 01:54 | XMS_ITS | Encounter Summary ---
Author Organization [facility] Address [address] [place] [address] Care Team Providers Care Cornetist Name Role Phone JassBroSitamurtaza Pascal NP Primary Care Provider [phone] Encounter Details Date Type Department Care Team (Late st Contact Info) Description 10/29/2020 Orders Only [facility] [address] [facility] [address] [place] [id number] Ja Mayo MD 4 [facility] [address] [place] [address] Pre-op testing (Primary Dx) Social History Tobacco Use Types Packs/Day Years Used Date Smoking Tobacco: Every Day Vaping Alcohol Use Standard Drinks/Week Comments Not Currently 0 (1 standard drink = 0.6 oz pur e alcohol) Sex and Gender Information Value Date Recorded Sex Assigned at Not on file Legal Sex Male 11:53 PM FIREMAN HELPER Gender Identity Not on file Sexual Orientation Not on file documented as of this encounter Plan of Treatment Not on file documented as of this encounter Results * COVID-19 Coronavirus RNA Nasopharyngeal (11/28/2020 8:47 AM FIREMAN HELPER) COVID-[address] [facility] ([facility] Comment: Testing performed as a component of [...] consistent with COVID-19. First COVID-19 test? Unknown [facility]) Comment:Testing performed by : , 1 [facility], [address] Employeed in healthcare? No [facility] ([facility]) Comment:Testing performed by : , 1 [facility], [address] status? No [facility] ([facility]) Comment:Testing performed by : , 1 [facility], [address] Group care resident? No [facility] ([facility]) Comment:Testing performed by : , 1 [facility], [address] Hospitalized? No [facility] ([facility]) Comment:Testing performed by : , 1 [facility], [address] Is patient in ICU? No [facility] ([facility]) Comment:Testing performed by : , 1 [facility], [address] Symptomatic as defined by CDC? No [facility] ([facility]) Comment:Testing performed by : , [address] [place] [address], [address] Nasopharyngeal 11/28/2020 8: 47 AM FIREMAN HELPER 11/28/2020 1:24 PM FIREMAN HELPER Narrative [facility]) - 11/28/2020 10:17 PM FIREMAN HELPER What is the reason for testing?->Screening prior to scheduled procedure or surgery Ja Mayo MD LAB MICROBIOLOGY - GENERAL ORDERABLES Final Result [facility] 1 [facility] Department [place] [address] documented in this encounter Visit Diagnoses Diagnosis Pre-op testing- Primary Unspecified pre-operative examination Pre-op testing Unspecified pre-operative examination documented in this encounter Care Teams Cornetist Relationship Specialty Start Date End Date Sita Regan NP [address] [place] [address] PCP - General Nurse Practitioner 10/23/20 documented as of this encounter
--- OUTSIDE RECORDS SUMMARY | 2024-10-23 01:54 | XMS_ITS | Encounter Summary ---
Author Organization [facility] Address [address] [place] [address] Care Team Providers Care Nurse Practical Name Role Phone Jass Sita Pascal NP Primary Care Provider [phone] Encounter Details Date Type Department Care Team (Late st Contact Info) Description 12/01/2020 9:00 AM MANAGER COLLEGE - 12/01/2020 10:30 AM MANAGER COLLEGE Surgery [facility] Operating Room 1 [place] [address] Ja Mayo MD [address] [place] [id number] LAPAROSCOPIC CHOLECYSTECTOMY Surgery Details Date/Time Status Location OR Service Patient Class Case Cl ass Case Type Trauma Case? 12/01/2020 9:00 AM Posted [facility] OPERATING ROOM OR General Surgery Outpatient Elective Panel 1 Procedure LRB Anes Op Region Wound Class Comments LAPAROSCOPIC CHOLECYSTECTOMY N/A General Abdomen Class II - Clean Contaminated Surgeon Surgeon Role Service Panel Ja Mayo MD Primary [facility] documented in this encounter Social History Tobacco Use Types Packs/Day Years Used Date Smoking Tobacco: Every Day Vaping Alcohol Use Standard Drinks/Week Comments Not Currently 0 (1 standard drink = 0.6 oz pur e alcohol) Sex and Gender Information Value Date Recorded Sex Assigned at Not on file Legal Sex Male 11:53 PM MANAGER COLLEGE Gender Identity Not on file Sexual Orientation Not on file documented as of this encounter Last Filed Vital Signs Vital Sign Reading Time Taken Comments Blood Pressure 149/92 12/01/2020 10:30 AM MANAGER COLLEGE Pulse 52 12/01/2020 10:30 AM MANAGER COLLEGE Temperature 36.6 ??C (97.8 ??F) 12/01/2020 9:57 AM CS T Respiratory Rate 17 12/01/2020 10:30 AM MANAGER COLLEGE Oxygen Saturation 93% 12/01/2020 10:30 AM MANAGER COLLEGE Inhaled Oxygen Concentration - - Weight 102.2 kg (225 lb 5 oz) 12/01/2020 7:40 AM MANAGER COLLEGE Height 172.7 cm (5' 8 ) 12/01/2020 7:40 AM MANAGER COLLEGE Body Mass Index 34.26 12/01/2020 7:40 AM MANAGER COLLEGE documented in this encounter Discharge Instructions * Attachments The following attachments cannot be sent through Care Everywhere. * General Anesthesia (Discharge Care) (Hungarian) * Narcotic-Analgesic/Acetaminophen (By mouth) (Hungarian) documented in this encounter Medications at Time of Discharge albuterol HFA (PROVENTIL HFA,VENTOLIN HFA,PROAIR HFA) 90 mcg/actuation inhaler Inhale 2 puffs every 4 hours by inhalation route as needed. cetirizine (ZyrTEC) 10 mg tablet Take 10 mg by mouth daily as needed 05/14/2020 ibuprofen (ADVIL,MOTRIN) 800 mg tablet TAKE 1 TABLET BY MOUTH THREE TIMES A DAY NEEDED 09/17/2020 oxyCODONE-acetam inophen (PERCOCET) 5-325 mg per tabletIndication s:Pain Take 1-2 tablets by mouth every 4 (four) hours as needed for pain 20 tablet 12/01/2020 documented as of this encounter Ordered Prescriptions Prescription Sig Dispense Quantity Refills Last Filled Start Date End Date oxyCODONE-acetamin ophen (PERCOCET) 5-325 mg per tabletIndications: Pain Take 1-2 tablets by mouth every 4 (four) hours as needed for pain 20 tablet 12/01/2020 documented in this encounter Discharge Disposition Disposition Code Departure Means Destination Discharge to home or self care documented in this encounter H&P Notes * Ja Mayo MD - 12/01/2020 8:32 AM CST Images from the original note were not included. Subjective/Objective []Expand by Default Patient ID: Chava Olivier is a 35 y.o. male. Chief Complaint [...] about it and get back to us. GER COLLEGE documented in this encounter Miscellaneous Notes * Perioperative Nursing Note - Rosetta Orr RN - 12/01/2020 2:15 PM MANAGER COLLEGE Up to void in bathroom. mohamud well. GER COLLEGE * Perioperative Nursing Note - Jennifer Mejias RN - 12/01/2020 12:04 PM CST Pt resting peacefully with eyes closed. No facial grimace or moaning. resp even and unlabored. GER COLLEGE * Op Note - Ja Mayo MD - 12/01/2020 9:08 AM CST Operative Report SURGEON: Ja Mayo MD SURGICAL TEAM: Surgeon(s) and Role: * Ja Mayo MD - Primary DATE OF SURGERY : 12/01/2020 PREOPERATIVE DIAGNOSIS: Pre-op Diagnosis * Biliary dyskinesia [K82.8] POSTOPERATIVE DIAGNOSIS: Post-op Diagnosis * Biliary dyskinesia [K82.8] PROCEDURE: LAPAROSCOPIC CHOLECYSTECTOMY INDICATION FOR PROCEDURE: Typical upper abdominal pain with ejection fraction on HIDA scan of 0%. Also patient has gallstoneson ultrasound. ANESTHESIA: General IMPLANTS: Nothing was implanted during the procedure OPERATIVE DETAILS Incision type: Estimated Blood Loss: No blood loss documented. Urine output : mls Intraoperative Fluids: mls Blood/Blood Products Transfused: mls Specimens: Order Name Source Comment Collection Info Order Time SURGICAL PATHOLOGY Gallbladder Collected By: Ja Mayo MD 12/01/2020 9:37 AM PROCEDURE: The risks and benefits of the procedure were explained to the patient. Informed consent was obtained. The patient was brought to the operating room. He was placed on the OR table in the supine position. General anesthesia was induced and she was intubated. His abdomen was prepped and draped in a sterile fashion. We anesthetized the skin and soft tissue in the areas of interest with lidocaine and Marcaine. A vertical infraumbilical incision was made with a 15 blade. We carried it down through the subcutaneous tissue with blunt dissection. The fascia was encountered and incised. No adhesions were noted. A 12 mm Raymond trocar was introduced and the abdomen was insufflated to 15 mm mercury of CO2. Three 5 mm trocars were placed: one in the epigastrium and 2 in the right upper quadrant. The gallbladder was identified. It was grasped and retracted upwards. A 2nd grasper was used to retract the infundibulum laterally. The fibrofatty connective tissue was cleared away from the cystic artery and cystic duct. A critical view of safety was obtained. These structures were clipped and divided with 2 clips on the stay side and 1 on the specimen side. The gallbladder was removed from the underside of the liver with the hook cautery. It was placed in endobag and removed through the umbilical port site. There is no evidence of bleeding or bile leak at the conclusion of the operation. The umbilical port site was closed with [id number] 0 Vicryl. The skin incisions closed with 4 0 Monocryl. Complications: None Condition on Discharge from the operating room was stable Ja Mayo MD Date: 12/01/2020 Time: 9:52 AM No Resident involved on case GER COLLEGE * Perioperative Nursing Note - Milla Saavedra RN - 11/25/2020 3:58 PM MANAGER COLLEGE covid screening 11/28/2020 GER COLLEGE * Pre-Procedure Instructions - Milla Saavedra RN - 11/25/2020 3:58 PM MANAGER COLLEGE We are pleased that you and your doctor have chosen [facility] for your surgery. We hope that the following information will help make your visit a pleasant one. Surgery Date: 12/01/2020 Before your surgery: ?? Notify your doctor of ANY change in your health such as a cold, sore throat, fever, any infection or a change in the problem for which you are having your surgery. ?? Follow any instructions given to you by your doctor or surgeon. Check with your doctor if you need to STOP taking: ?? Aspirin (ordered by your doctor) ?? Plavix ?? Coumadin One week before surgery STOP taking: ?? All herbal supplements ?? Aspirin (not ordered by your doctor) ?? Aleve, Advil, Motrin, Ibuprofen, or other similar medications (Tylenol is okay). 24 hours before your surgery: ?? No smoking or alcoholic drinks. ?? Stop taking your: Metformin/Glucophage. Night before your surgery: ?? Do not eat or drink anything after midnight. ?? Take only half of your normal PM Insulin dose. ?? Follow surgeon's instructions for anti-bacterial shower night before and morning of surgery. Day of surgery: ?? Do not swallow any water when you brush your teeth. ?? Do not take your AM insulin dose or any diabetic medicines ?? ONLY take these pills with a tiny sip of water. Pre-Surgery Instructions: Medication Instructions ??? albuterol HFA (PROVENTIL HFA,VENTOLIN HFA,PROAIR HFA) 90 mcg/actuation inhaler ??? cetirizine (ZyrTEC) 10 mg tablet ? Use no make-up, nail turkmen, lotions, oils or powders on your skin. ?? Wear comfortable clothes that will not be tight in the area of your surgery. ?? Leave all valuables and jewelry (including all body piercing jewelry) at home. ?? If you use a CPAP machine, please bring it with you to wear after your surgery. ?? Please bring your a photo ID and insurance cards with you. ?? Check in at the Registration Desk. ?? If you are 17 years old or younger, a parent or guardian must come with you. After your Outpatient Surgery: ?? You must have a responsible adult to drive you home, you will not be allowed to drive or take a cab home. ?? We recommend you have someone stay with you for 24 hours after your surgery. What to bring if you are spending the night with us: ?? Bring toiletry items such as: robe, slippers, toothbrush, toothpaste, brush or comb. ?? Bring contact lens, hearing aids, glass cases and denture container if you use any of these items. ?? The hospital will provide you with a gown. Questions or concerns: ?? If you have any questions or concerns regarding your procedure, contact your surgeon as soon as possible. ?? If you have questions regarding your Pre-Admission Testing, please call us. We can be reached atthe number posted at the top of the page. GER COLLEGE documented in this encounter Plan of Treatment Not on file documented as of this encounter Procedures Procedure Name Priority Date/Time Associated Diagnosis Comments SURGICAL PATHOLOGY Routine 12/01/2020 11 :21 AM MANAGER COLLEGE Biliary dyskinesia LAPAROSCOPIC CHOLECYSTECTOMY 12/01/2020 8:23 AM MANAGER COLLEGE Biliary dyskinesia documented in this encounter Results * Surgical pathology (12/01/2020 11:21 AM MANAGER COLLEGE) Tissue (Gallbladder) 12/01/2020 9:37 AM MANAGER COLLEGE Narrative PATHOLOGY [facility] - 12/02/2020 12:55 PM MANAGER COLLEGE EPIC results best viewed via link to PDF [facility] Department of Pathology [address] [place] [id number] Final Report Patient Name: ??CHAVA OLIVIERGenesis Address: ??[address] [place] [address], ??[place], [place] [address] Gender: ??M : ??1985 (Age: 35) Service: ??Surgery Location: ??[facility] Hospital #: ??[id number] Patient Type: ??[facility] SDS Accession # ?[id number] Taken: ??12/01/2020 Received: ??12/01/2020 Accessioned: ??12/01/2020 Reported: ??12/02/2020 Physician(s):Ja Mayo M.D. Diagnosis: Gallbladder, laparoscopic cholecystectomy: ? -Chronic cholecystitis. -Cholesterolosis. -Cholelithiasis. Rajesh Lynch M.D. Report Electronically Reviewed and Signed Out By ??Rajesh Shah M.D. ??12/02/2020 12:55:21 Specimen(s) Received: A: Gallbladder Microscopic Description: Microscopic examination of the gallbladder shows a variable chronic inflammatory infiltrate as well as focal invagination of the overlying epithelium into the muscular layer (Rokitansky-Aschoff sinuses). ??Many of the villous tips are distended by foamy macrophages consistent with cholesterolosis. Clinical History: Biliary dyskinesia. ??Laparoscopic cholecystectomy. Gross Description: The specimen is received in a single container labeled Chava Olivier and gallbladder . ??It is a gallbladder that measures 8 x 5 cm. ??The serosa is pink-dinh and smooth. ??The wall measures up to 0.3 cm in thickness. ??The lumen contains green-brown bile and two yellow green granular stones measuring up to 3.0 cm. ??The mucosa is green and velvety with streaks of yellow discoloration resembling cholesterolosis. ??Represented in one cassette. ??Nikki Miles M.D./Beatrice Lara, PGenesisA. REPORT IMAGES AND SCANNED DOCUMENTS, IF INCLUDED, ONLY VIEWABLE IN PDF VERSION OF REPORT The performance characteristics of some immunohistochemical stains, fluorescence in-situ hybridization tests and immunophenotyping by flow cytometry cited in this report (if any) were determined by the Surgical Pathology Department at [facility] as part of an ongoing senior quality control technician program and in compliance with federally mandated regulations drawn from the Clinical Laboratory Improvement Act of 1988 (CLIA '88). ??Some of these tests rely on the use of analyte specific reagents and are subject to specific labeling requirements by the US Food and Drug Administration. ??Such diagnostic tests may only be performed in a facility that is certified by the Department of Health and Human Services as a high complexity laboratory under CLIA '88. The FDA has determined that such clearance or approval is not necessary. ??This test is used for clinical purposes. ??It should not be regarded as investigational or for research. ??Nevertheless, federal rules concerning the medical use of analyte specific reagents require that the following disclaimer be attached to the report: This test was developed and its performance characteristics determined by the Surgical Pathology Department [facility]. ??It has not been cleared or approved by the U. S. Food and Drug Administration. Ja Mayo MD LAB PATHOLOGY ORDER SAHIL Final Result Performing Organization Address City/State/[facility] Co de Phone Number PATHOLOGY [facility]) [address] [place], [place] [id number] documented in this encounter Visit Diagnoses Diagnosis Biliary dyskinesia- Primary Other specified disorder of gallbladder Biliary dyskinesia Other specified disorder of gallbladder documented in this encounter Admitting Diagnoses Diagnosis Biliary dyskinesia Other specified disorder of gallbladder documented in this encounter Administered Medications Inactive Administered Medications - up to 3 most recent administrations Medication Order MAR Action Action Date Dose Rate Site acetaminophen (TYLENOL) tablet 1,000 mg 1,000 mg, oral, Once, On Tue12/01/20 at 0815, For 1 dose, Pre-Op, Indications: Pre-Emptive AnalgesiaIndications:Pre-Emptive Analgesia Given 12/01/2020 8:02 AM MANAGER COLLEGE 1,000 mg diphenhydrAMINE (BENADRYL) injection 12.5 mg 12.5 mg, intravenous, Administer over 2 Minutes, Every 15 min PRN, itching, Starting on Tue12/01/20 at 0947, For 2 doses, Phase I, Max cumulative dose 50 mg., Indications: ItchingIndications:Itching Given 12/01/2020 10:19 AM MANAGER COLLEGE 12.5 mg fentaNYL (SUBLIMAZE) preservative free injection 50 mcg 50 mcg, intravenous, Every 10 min PRN, 1st line for pain, Starting on Tue12/01/20 at 0947, Phase I, Notify Anesthesiologist if total PACU dose reaches 100 mcg and pain score 5/10 or more., Indications: PainIndications:Pain Given 12/01/2020 10:20 AM MANAGER COLLEGE 50 mcg HYDROmorphone (DILAUDID) 2 mg/mL injection - ADS Override Pull Starting on Tue12/01/20 at 1041, For 1 dose, Created by ameya override HYDROmorphone (DILAUDID) injection 0.5 mg 0.5 mg, intravenous, Administer over 2 Minutes, Every 10 min PRN, 2nd line for pain, Starting on Tue12/01/20 at 1038, Phase I Given 12/01/2020 11:16 AM MANAGER COLLEGE 0.5 mg Given 12/01/2020 10:43 AM MANAGER COLLEGE 0.5 mg Lactated Ringer's (LR) infusion 30 mL/hr, intravenous, Continuous, Starting on Tue12/01/20 at 0815, Pre-Op Rate/Dose Verify 12/01/2020 8:[address] New Bag 12/01/2020 8:01 AM MANAGER COLLEGE 30 mL/hr 30 mL/hr lidocaine EPINEPHrine (XYLOCAINE with EPI) 0.5 %-1:200,000 injection As needed, Starting on Tue12/01/20 at 0907, Intra-Op, Indications: Administration of Local AnesthesiaIndications:Adm inistration of Local Anesthesia Given 12/01/2020 9:07 AM MANAGER COLLEGE 9 mL Abdominal Tissue ondansetron (ZOFRAN) injection 4 mg 4 mg, intravenous, Administer over 2 Minutes, Once as needed, nausea, vomiting, Starting on Tue12/01/20 at 0947, For 1 dose, Phase I Given 12/01/2020 10:15 AM MANAGER COLLEGE 4 mg oxyCODONE-acetaminophen (PERCOCET) 5-325 mg per tablet 1 tablet 1 tablet, oral, Once, On Tue12/01/20 at 1345, For 1 dose, Phase I & Post-op Floor, Indications: PainIndications:Pain Given 12/01/2020 2:32 PM MANAGER COLLEGE 1 tablet prochlorperazine (COMPAZINE) 10 mg/2 mL (5 mg/mL) injection - ADS Override Pull Starting on Tue12/01/20 at 1112, For 1 dose, Created by ameya override prochlorperazine (COMPAZINE) injection 10 mg 10 mg, intravenous, Administer over 2 Minutes, Every 6 hours PRN, nausea, vomiting, Starting on Tue12/01/20 at 1111, Phase I Given 12/01/2020 11:13 AM MANAGER COLLEGE 10 mg scopolamine patch 72 hour 1 patch 1 patch, transdermal, Administer over 72 Hours, Once, On Tue12/01/20 at 0845, For 1 dose, Pre-Op Medication Applied 12/01/2020 8:05 AM MANAGER COLLEGE 1 patch Behind Left Ear sodium chloride 0.9 % irrigation As needed, Starting on Tue12/01/20 at 0750, Intra-Op Given 12/01/2020 7:50 AM MANAGER COLLEGE 500 mL Surgical Site sodium chloride 0.9 % irrigation As needed, Starting on Tue12/01/20 at 0907, Intra-Op Given 12/01/2020 9:07 AM MANAGER COLLEGE 250 mL Surgical Site documented in this encounter Active and Recently Administered Medications Times are shown in MANAGER COLLEGE. Scheduled Medication Order 11/29/2020 11/30/2020 12/01/2020 acetaminophen (TYLENOL) tablet 1,000 mg (COMPLETED) 1,000 mg, oral, Once, On Tue12/01/20 at 0815, For 1 dose, Pre-Op, Indications: Pre-Emptive Analgesia 0802 (Given - Provid er: Rosetta Orr RN) oxyCODONE-acetaminophen (PERCOCET) 5-325 mg per tablet 1 tablet (COMPLETED) 1 tablet, oral, Once, On Tue12/01/20 at 1345, For 1 dose, Phase I & Post-op Floor, Indications: Pain 1432 (Given - Provid er: Rosetta Orr RN) scopolamine patch 72 hour 1 patch 1 patch, transdermal, Administer over 72 Hours, Once, On Tue12/01/20 at 0845, For 1 dose, Pre-Op 0805 (Medication Theodore lied - Provider: Rosetta Orr RN)1436 (Due: Medication Removed - Provider: Automatic Discharge Provider - Comment: Time automatically adjusted from order being discontinued) Continuous Medication Order 11/29/2020 11/30/2020 12/01/2020 Lactated Ringer's (LR) infusion 30 mL/hr, intravenous, Continuous, Starting on Tue12/01/20 at 0815, Pre-Op 0801 (New Bag - Prov ider: Rosetta Orr RN)0838 (Rate/Dose Verify - Provider: Yvette Phan CRNA) Lactated Ringer's (LR) infusion 125 mL/hr, intravenous, Continuous, Starting on Tue12/01/20 at 1030, Phase I 1030 (Due) PRN Medication Order 11/29/2020 11/30/2020 12/01/2020 diphenhydrAMINE (BENADRYL) injection 12.5 mg (CANCELED) 12.5 mg, intravenous, Administer over 2 Minutes, Every 15 min PRN, itching, Starting on Tue12/01/20 at 0947, For 2 doses, Phase I, Max cumulative dose 50 mg., Indications: Itching 1019 (Given - Provid er: Jennifer Mejias, ELLY) fentaNYL (SUBLIMAZE) preservative free injection 50 mcg (CANCELED) 50 mcg, intravenous, Every 10 min PRN, 1st line for pain, Starting on Tue12/01/20 at 0947, Phase I, Notify Anesthesiologist if total PACU dose reaches 100 mcg and pain score 5/10 or more., Indications: Pain 1020 (Given - Provid er: Jennifer Mejias RN) HYDROmorphone (DILAUDID) injection 0.5 mg (CANCELED) 0.5 mg, intravenous, Administer over 2 Minutes, Every 10 min PRN, 2nd line for pain, Starting on Tue12/01/20 at 1038, Phase I 1043 (Given - Provid er: Jennifer Mejias, ELLY)1116 (Given - Provider: Jennifer Mejias RN) lidocaine EPINEPHrine (XYLOCAINE with EPI) 0.5 %-1:200,000 injection (CANCELED) As needed, Starting on Tue12/01/20 at 0907, Intra-Op, Indications: Administration of Local Anesthesia 0907 (Given - Provid er: Ja Mayo MD) ondansetron (ZOFRAN) injection 4 mg (COMPLETED) 4 mg, intravenous, Administer over 2 Minutes, Once as needed, nausea, vomiting, Starting on Tue12/01/20 at 0947, For 1 dose, Phase I 1015 (Given - Provid er: Jennifer Mejias RN) prochlorperazine (COMPAZINE) injection 10 mg (CANCELED) 10 mg, intravenous, Administer over 2 Minutes, Every 6 hours PRN, nausea, vomiting, Starting on Tue12/01/20 at 1111, Phase I 1113 (Given - Provid er: Jennifer Mejias RN) sodium chloride 0.9 % irrigation (CANCELED) As needed, Starting on Tue12/01/20 at 0750, Intra-Op 0750 (Given - Provid er: Ja Mayo MD) sodium chloride 0.9 % irrigation (CANCELED) As needed, Starting on Tue12/01/20 at 0907, Intra-Op 0907 (Given - Provid er: Ja Mayo MD - 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) documented in this encounter Orders Medications Ordered That Colin ht Not Have Been Administered Count Last Ordered Date First Ordered Date fentaNYL (SUBLIMAZE) 50 mcg/ mL preservative free injection - ADS Override Pull 1 12/01/2020 Lactated Ringer's (LR) infusion 1 meperidine (DEMEROL) preserv ative free injection 12.5 mg 1 12/01/2020 midazolam (VERSED) 1 mg/mL p reservative free injection - ADS Override Pull 1 12/01/2020 naloxone (NARCAN) 0.4 mg/mL injection 0.04-0.4 mg 1 12/01/2020 scopolamine patch 72 hour 1 patch 1 021 sodium chloride 0.9% flush 0.5-20 mL 2 11/08 Diet Count Last Ordered Date First Orde red Date ADULT DISCHARGE DIET 1 12/01/2020 Nursing Count Last Ordered Date First Orde red Date DISCHARGE ACTIVITY 2 12/01/2020 DISCHARGE CALL PROVIDER 6 12/01/2020 DISCHARGE DRESSING 3 12/01/2020 documented in this encounter Care Teams Nurse Practical Relationship Specialty Start Date End Date Sita Regan NP [address] [place] [address] PCP - General Nurse Practitioner 10/23/20 documented as of this encounter
--- OUTSIDE RECORDS SUMMARY | 2024-10-23 01:54 | XMS_ITS | Encounter Summary ---
Author Organization [facility] Address [address] [place] [address] Care Team Providers Care Purification Supervisor Name Role Phone Sita Regan BLASTING GANG MINER Primary Care Provider [phone] Reason for Visit * Reason Comments Post-op Gallbladder 12/01/2009 Encounter Details Date Type Department Care Team (Late st Contact Info) Description 12/15/2020 1:30 PM MANUAL QA TESTER Office Visit [facility] [address] [facility] [address] [place] [id number] EyersMalena NP [address] [facility] [address] [place] [address] Biliary dyskinesia (Primary Dx) Social History Tobacco Use Types Packs/Day Years Used Date Smoking Tobacco: Every Day Vaping Alcohol Use Standard Drinks/Week Comments Not Currently 0 (1 standard drink = 0.6 oz pur e alcohol) Sex and Gender Information Value Date Recorded Sex Assigned at Not on file Legal Sex Male 11:53 PM MANUAL QA TESTER Gender Identity Not on file Sexual Orientation Not on file documented as of this encounter Last Filed Vital Signs Vital Sign Reading Time Taken Comments Blood Pressure 124/79 12/15/2020 1:16 PM MANUAL QA TESTER Pulse 65 12/15/2020 1:16 PM MANUAL QA TESTER Temperature 36.5 ??C (97.7 ??F) 12/15/2020 1:16 PM CS T Respiratory Rate - - Oxygen Saturation - - Inhaled Oxygen Concentration - - Weight 103.6 kg (228 lb 4.8 oz) 12/15/2020 1:16 PM MANUAL QA TESTER Height 172.7 cm (5' 8 ) 12/15/2020 1:16 PM MANUAL QA TESTER Body Mass Index 34.71 12/15/2020 1:16 PM MANUAL QA TESTER documented in this encounter Progress Notes * Malena Plasencia NP - 12/15/2020 1:30 PM CST Subjective Godfrey Bowser presents to the clinic 2 weeks following laparoscopic cholecystectomy. Eating a regular diet without difficulty. Bowel movements are Normal. The patient is not having any pain.. Objective BP 124/79 (BP Location: Right arm, Patient Position: Sitting) Pulse 65 Temp 36.5 ??C (97.7 ??F) Ht 172.7 cm (5' 8 ) Wt 103.6 kg (228 lb 4.8 oz) BMI 34.71 kg/m?? General: appears stated age, cooperative and no distress Abdomen: soft, bowel sounds active, non-tender, no abnormal masses Incision: healing well, no drainage, no erythema, no hernia, no seroma, no swelling, well approximated, no dehiscence, incision well approximated Assessment/Plan Doing well postoperatively. 1. Continue any current medications. 2. Wound care discussed. 3. Return to full duty in 2 weeks. 4. Follow up: as needed AL QA TESTER documented in this encounter Plan of Treatment Not on file documented as of this encounter Visit Diagnoses Diagnosis Biliary dyskinesia- Primary Other specified disorder of gallbladder documented in this encounter Care Teams Purification Supervisor Relationship Specialty Start Date End Date Sita Regan NP [address] [place] [address] PCP - General Nurse Practitioner 10/23/20 documented as of this encounter
--- OUTSIDE RECORDS SUMMARY | 2024-10-23 01:54 | XMS_ITS | Encounter Summary ---
Author Organization [facility] Address [address] [place] [address] Care Team Providers Care Cemetery Vault Installer Name Role Phone JassBroSitamurtaza Pascal NP Primary Care Provider [phone] Encounter Details Date Type Department Care Team (Late st Contact Info) Description 12/01/2020 7:34 AM [facility] - 12/01/2020 2:36 PM [facility] Hospital Encounter [facility] [address] [place] [address] Ja Mayo MD [address] [place] [address] [address] Biliary dyskinesia Discharge Disposition: Discharge to home or self care Social History Tobacco Use Types Packs/Day Years Used Date Smoking Tobacco: Every Day Vaping Alcohol Use Standard Drinks/Week Comments Not Currently 0 (1 standard drink = 0.6 oz pur e alcohol) Sex and Gender Information Value Date Recorded Sex Assigned at Not on file Legal Sex Male 11:53 PM [facility] Gender Identity Not on file Sexual Orientation Not on file documented as of this encounter Last Filed Vital Signs Vital Sign Reading Time Taken Comments Blood Pressure 128/72 12/01/2020 2:29 PM [facility] Pulse 65 12/01/2020 2:29 PM [facility] Temperature 36.9 ??C (98.4 ??F) 12/01/2020 2:29 PM CS T Respiratory Rate 20 12/01/2020 2:29 PM [facility] Oxygen Saturation 97% 12/01/2020 2:29 PM [facility] Inhaled Oxygen Concentration - - Weight 102.2 kg (225 lb 5 oz) 12/01/2020 7:40 AM [facility] Height 172.7 cm (5' 8 ) 12/01/2020 7:40 AM [facility] Body Mass Index 34.26 12/01/2020 7:40 AM [facility] documented in this encounter Discharge Diagnoses Diagnosis Calculus of gallbladder with chronic cholecystitis without obstruction - CALCULUS OF GALLBLADDER WITH CHRONIC CHOLECYSTITIS WITHOUT OBSTRUCTION Gastro-esophageal reflux disease without esophagitis - GASTRO-ESOPHAGEAL REFLUX DISEASE WITHOUT ESOPHAGITIS Nicotine dependence, other tobacco product, uncomplicated - NICOTINE DEPENDENCE, OTHER TOBACCO PRODUCT, UNCOMPLICATED Allergy status to narcotic agent - ALLERGY STATUS TO NARCOTIC AGENT Allergy status to sulfonamides - ALLERGY STATUS TO SULFONAMIDES Allergy status to other drugs, medicaments and biological substances - ALLERGY STATUS TO OTHER DRUGS, MEDICAMENTS AND BIOLOGICAL SUBSTANCES documented in this encounter Discharge Instructions * Attachments The following attachments cannot be sent through Care Everywhere. * General Anesthesia (Discharge Care) (Uzbek) * Narcotic-Analgesic/Acetaminophen (By mouth) (Uzbek) documented in this encounter Medications at Time [...] about it and get back to us. [facility] documented in this encounter Miscellaneous Notes * Perioperative Nursing Note - Rosetta Orr RN - 12/01/2020 2:15 PM [facility] Up to void in bathroom. mohamud well. [facility] * Perioperative Nursing Note - Jennifer Mejias RN - 12/01/2020 12:04 PM CST Pt resting peacefully with eyes closed. No facial grimace or moaning. resp even and unlabored. [facility] * Op Note - Ja Mayo MD [...] The umbilical port site was closed with [id number] 0 Vicryl. The skin incisions closed with 4 0 Monocryl. Complications: None Condition on Discharge from the operating room was stable Ja Mayo MD Date: 12/01/2020 Time: 9:52 AM No Resident involved on case [facility] * Perioperative Nursing Note - Milla Saavedra RN - 11/25/2020 3:58 PM [facility] covid screening 11/28/2020 [facility] * Pre-Procedure Instructions - Milla Saavedra RN - 11/25/2020 3:58 PM [facility] We are pleased that you and your doctor have chosen [facility] for your surgery. We hope that the [...] mg tablet ? Use no make-up, nail maori, lotions, oils or powders on your skin. [...] posted at the top of the page. [facility] documented in this encounter Plan of Treatment Not on file documented as of this encounter Procedures Procedure Name Priority Date/Time Associated Diagnosis Comments SURGICAL PATHOLOGY Routine 12/01/2020 11 :21 AM [facility] Biliary dyskinesia LAPAROSCOPIC CHOLECYSTECTOMY 12/01/2020 8:23 AM [facility] Biliary dyskinesia documented in this encounter Results * Surgical pathology (12/01/2020 11:21 AM [facility]) Tissue (Gallbladder) 12/01/2020 9:37 AM [facility] Narrative PATHOLOGY [facility] ([facility]) - 12/02/2020 12:55 PM [facility] EPIC results best viewed via link to PDF [facility] Department of Pathology [address] [place] [address] Final Report Patient Name: ??BELLA OLIVIERAdan Pearl Address: ??[address] [place] [address], ??[place], [place] ??[facility] Gender: ??M : ??1985 (Age: 35) Service: ??Surgery Location: ??[facility] Hospital #: ??[id number] Patient Type: ??[facility] Accession # [id number] Taken: ??12/01/2020 Received: ??12/01/2020 Accessioned: ??12/01/2020 Reported: [...] determined by the Surgical Pathology Department at [facility] as part of an ongoing clinical quality manager program and in compliance with federally mandated [...] characteristics determined by the Surgical Pathology Department [facility]. ??It has not been cleared or approved by the U. S. Food and Drug Administration. Ja Mayo MD LAB PATHOLOGY ORDER SAHLI Final Result Performing Organization Address City/State/[facility] Co de Phone Number PATHOLOGY [facility] [address] [place] [address] documented in this encounter Visit Diagnoses Diagnosis [...] Pre-Emptive AnalgesiaIndications:Pre-Emptive Analgesia Given 12/01/2020 8:02 AM [facility] 1,000 mg diphenhydrAMINE (BENADRYL) injection 12.5 mg 12.5 mg, intravenous, Administer over 2 Minutes, Every 15 min PRN, itching, Starting on Tue12/01/20 at 0947, For 2 doses, Phase I, Max cumulative dose 50 mg., Indications: ItchingIndications:Itching Given 12/01/2020 10:19 AM [facility] 12.5 mg fentaNYL (SUBLIMAZE) preservative free injection 50 mcg 50 mcg, intravenous, Every 10 min PRN, 1st line for pain, Starting on Tue12/01/20 at 0947, Phase I, Notify Anesthesiologist if total PACU dose reaches 100 mcg and pain score 5/10 or more., Indications: PainIndications:Pain Given 12/01/2020 10:20 AM [facility] 50 mcg HYDROmorphone (DILAUDID) 2 mg/mL injection - ADS Override Pull Starting on Tue12/01/20 at 1041, For 1 dose, Created by ameya override HYDROmorphone (DILAUDID) injection 0.5 mg 0.5 mg, intravenous, Administer over 2 Minutes, Every 10 min PRN, 2nd line for pain, Starting on Tue12/01/20 at 1038, Phase I Given 12/01/2020 11:16 AM [facility] 0.5 mg Given 12/01/2020 10:43 AM [facility] 0.5 mg Lactated Ringer's (LR) infusion 30 mL/hr, intravenous, Continuous, Starting on Tue12/01/20 at 0815, Pre-Op Rate/Dose Verify 12/01/2020 8:[address] New Bag 12/01/2020 8:01 AM [facility] 30 mL/hr 30 mL/hr ondansetron (ZOFRAN) injection 4 mg 4 mg, intravenous, Administer over 2 Minutes, Once as needed, nausea, vomiting, Starting on Tue12/01/20 at 0947, For 1 dose, Phase I Given 12/01/2020 10:15 AM [facility] 4 mg oxyCODONE-acetaminophen (PERCOCET) 5-325 mg per tablet 1 tablet 1 tablet, oral, Once, On Tue12/01/20 at 1345, For 1 dose, Phase I & Post-op Floor, Indications: PainIndications:Pain Given 12/01/2020 2:32 PM [facility] 1 tablet prochlorperazine (COMPAZINE) 10 mg/2 mL (5 mg/mL) injection - ADS Override Pull Starting on Tue12/01/20 at 1112, For 1 dose, Created by ameya override prochlorperazine (COMPAZINE) injection 10 mg 10 mg, intravenous, Administer over 2 Minutes, Every 6 hours PRN, nausea, vomiting, Starting on Tue12/01/20 at 1111, Phase I Given 12/01/2020 11:13 AM [facility] 10 mg scopolamine patch 72 hour 1 patch 1 patch, transdermal, Administer over 72 Hours, Once, On Tue12/01/20 at 0845, For 1 dose, Pre-Op Medication Applied 12/01/2020 8:05 AM [facility] 1 patch Behind Left Ear documented in this encounter Active and Recently Administered Medications Times are shown in [facility]. 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) documented in this encounter Orders Medications Ordered That Colin ht Not Have Been Administered Count Last Ordered Date First Ordered Date fentaNYL (SUBLIMAZE) 50 mcg/ mL preservative free injection - ADS Override Pull 1 12/01/2020 Lactated Ringer's (LR) infusion 1 lidocaine EPINEPHrine (XYLOC KSENIA with EPI) 0.5 %-1:200,000 injection 1 12/01/2020 meperidine (DEMEROL) preserv ative free injection 12.5 mg 1 12/01/2020 midazolam (VERSED) 1 mg/mL p reservative free injection - ADS Override Pull 1 12/01/2020 naloxone (NARCAN) 0.4 mg/mL injection 0.04-0.4 mg 1 12/01/2020 scopolamine patch 72 hour 1 patch 1 021 sodium chloride 0.9 % irrigation 2 12/01/19 21 sodium chloride 0.9% flush 0.5-20 mL 2 11/08 Diet Count Last Ordered Date First Orde red Date ADULT DISCHARGE DIET 1 12/01/2020 Nursing Count Last Ordered Date First Orde red Date DISCHARGE ACTIVITY 2 12/01/2020 DISCHARGE CALL PROVIDER 6 12/01/2020 DISCHARGE DRESSING 3 12/01/2020 documented in this encounter Care Teams Cemetery Vault Installer Relationship Specialty Start Date End Date Sita Regan NP [address] [place] [address] PCP - General Nurse Practitioner 10/23/20 documented as of this encounter
--- OUTSIDE RECORDS SUMMARY | 2024-10-23 01:54 | XMS_ITS | Encounter Summary ---
Author Organization [facility] Healthcare Address [address] [place] [address] Care Team Providers Care Merry Go Round Operator Name Role Phone JassSita Naida PEREZ Primary Care Provider [phone] Encounter Details Date Type Department Care Team (Late st Contact Info) Description 12/01/2020 8:38 AM APPLIANCE REPAIR TECHNICIAN Anesthesia Event [facility] Operating Room [address] [place] [address] [place] [id number] [address] Yvette Phan, SAL[place] [address] [place] [address] Anesthesia Record Procedure Summary Procedure Name Responsible Anesthesiologist Anesthesia Start Time Anesthesia Stop Time LAPAROSCOPIC CHOLECYSTECTOMY (Abdomen) Nitesh Armstrong MD 12/01/20 0838 12/01/20 0959 Events Date Time Event Comment 12/01/2020 0758 0838 In Room 0838 An Start 0838 An Start Data 0842 An Induction The patient was reevaluated immediately before moderate or deep sedation use and before anesthesia induction. 0844 An Intubation 0851 Anesthesia Ready 0907 Proc Start 0908 Incision Start 0942 Quick Note 0/4 twitches, s ugammadex used for reversal of paralytic. 0946 Proc Fin 0949 An Extubation 0955 an stop data 0956 Out of Room 0959 Handoff to RN I completed my handoff to the receiving nurse during which we: 1. Patient identified 2. Responsible provider identified 3. Pertinent medical history reviewed 4. Procedure type and surgical course discussed 5. Intraoperative anesthetic management and any significant issues discussed 6. Expectations and concerns for postop period discussed 7. Questions solicited from receiving nurse 8. Patient disposition at the time of handoff: No value filed. 0959 An Stop Meds Name Total midazolam 2 mg fentaNYL 50 mcg propofol 200 mg lidocaine (cardiac) syringe 2 % 100 mg rocuronium 50 mg succinylcholine 160 mg ondansetron 4 mg dexamethasone 10 mg esmolol 30 mg sugammadex 400 mg Lactated Ringer's (LR) infusion 100 mL * Agents Name O2 Air Sevoflurane Inspired Sevoflurane * Blood No blood administrations on file. Lines, Drains, and Airways Type Details Placement Removal RETIRED Surgical Site 12/01/20; 0752; Abdomen; 10/09/24 (Retired LDA, Removed/Completed by G3 with LDA Utility); 1213 (Retired LDA, Removed/Completed by G3 with LDA Utility) 12/01/20 0752 by Shawna Marino RN 10/09/24 1213 by Discharge Provider, Automatic Peripheral IV Placement Date: 12/01/20; Placement Time: 075; Catheter Size: 20 G; Orientation: Left; Location: Hand; Site Prep: Chlorhexidine; Insertion Attempts: 1; Patient Tolerance: Tolerated well; Removal Date: 12/01/20; Removal Time: 1429 12/01/20 075 by Rosetta Orr RN 12/01/201428 by Rosetta Orr RN ETT Placement Date: 12/01/20; Placement Time: 851 (created via procedure documentation); Mask Ventilation: 0; Technique: Video laryngoscopy; Type: ETT - single; Single Lumen Tube Size: 7.5 mm; Cuffed: Yes; Laryngoscope: Jasmyne; Blade Size: 3; Location: Oral; Grade View: Grade I; Insertion Attempts: 1; Placement Verification: Auscultation, Capnometry; Removal Date: 12/01/20; Removal Time: 0912/01/20 08 by Yvette Phan CRNA 12/01/20948 by Yvette Phan CRNA documented in this encounter Social History Tobacco Use Types Packs/Day Years Used Date Smoking Tobacco: Every Day Vaping Alcohol Use Standard Drinks/Week Comments Not Currently 0 (1 standard drink = 0.6 oz pur e alcohol) Sex and Gender Information Value Date Recorded Sex Assigned at Not on file Legal Sex Male 11:53 PM APPLIANCE REPAIR TECHNICIAN Gender Identity Not on file Sexual Orientation Not on file documented as of this encounter OR Notes * Anesthesia Postprocedure Evaluation - Yvette Phan CRNA - 12/01/2020 9:59 AM CST Patient: Godfrey Bowser Procedure Summary Date: 12/01/20 Room / Location: [address] OPERATING ROOM Anesthesia Start: 837 Anesthesia Stop: Procedure: LAPAROSCOPIC CHOLECYSTECTOMY (N/A Abdomen) Diagnosis: Biliary dyskinesia (Biliary dyskinesia [K82.8]) Providers: Ja Mayo MD Responsible Provider: Nitesh Armstrong MD Anesthesia Type: general ASA Status: 2 Anesthesia Type: general Last vitals BP 122/79 Pulse 62 Temp 36.3 ??C (97.4 ??F) (Skin) Resp 18 SpO2 99% Anesthesia Post Evaluation Patient location during evaluation: PACU Patient participation: complete - patient participated Level of consciousness: fully awake Pain score: 0 Pain management: adequate Airway patency: adequate and patent Evidence of recall: no Anesthetic complications: no Cardiovascular status: acceptable and hemodynamically stable Respiratory status: acceptable and face mask Hydration status: acceptable Pt is: normothermic Nausea/Vomiting status: none IANCE REPAIR TECHNICIAN * Anesthesia Procedure Notes - Yvette Phan CRNA - 12/01/2020 8:52 AM CSTAssociated Order(s): Airway Airway Patient location: OR Urgency: elective Indications for airway management: anesthesia Difficult airway: no Staff: Supervising provider: Nitesh Armstrong MD Placed by: TIE TAPE MACHINE OPERATOR: Yvette Phan CRNA Emergent airway documentation: Risks and benefits discussed: yes Consent obtained: yes Consent given by: patient Airway prep: Preoxygenated: yes Patient position: sniffing MILS maintained throughout: yes Mask difficulty assessment: 0 - not attempted Spontaneous ventilation during airway: absent Sedation level during airway: deep Final airway details: Final airway type: endotracheal airway Tube type: ETT ETT size: 7.5 mm Cuffed: yes Technique used for successful ETT placement: video laryngoscopy Devices/Methods used in placement: intubating stylet Insertion site: oral Blade type: Jasmyne Video blade type: Vallejo Blade size: 3 Cormack-Lehane (direct): grade I - full view of glottis Cuff inflated with: air Placement verified by: auscultation and CO2 detection Airway secured with: silk tape Number of attempts: 1 IANCE REPAIR TECHNICIAN * Anesthesia Preprocedure Evaluation - Flaco Cole MD - 12/01/2020 7:55 AM CST Images from the original note were not included. Anesthesia Evaluation Godfrey Bowser is a 35 y.o. male Procedure(s): LAPAROSCOPIC CHOLECYSTECTOMY Pre-Op Diagnosis Codes: * Biliary dyskinesia [K82.8] HISTORY Past Medical History Respiratory Cigarette smoker: vape. Functional Capacity Functional capacity: 4-6 METs Review of Systems + dizziness (chronic vertigo) Patient Active Problem List Diagnosis ??? Biliary dyskinesia ??? Dermatofibroma Past Medical History: Diagnosis Date ??? GERD (gastroesophageal reflux disease) ??? Motion sickness Past Surgical History: Procedure Laterality Date ??? APPENDECTOMY 2000 Allergies Allergen Reactions ??? Sulfa (Sulfonamide Antibiotics) Unknown ??? Fluticasone Propionate Headache ??? Tfuzkqjtcirevax-Fppqzhh-Tt Itching Med List Status: Nurse Complete Set By: Milla Saavedra RN at 11/25/2020 3:55 PM Taking? Last Dose Start Date End Date Provider albuterol HFA (PROVENTIL HFA,VENTOLIN HFA,PROAIR HFA) 90 mcg/actuation inhaler More than a month ---- Mikala Ortiz MD cetirizine (ZyrTEC) 10 mg tablet 11/30/2020 05/14/20 -- Mikala Ortiz MD ibuprofen (ADVIL,MOTRIN) 800 mg tablet 11/24/2020 09/17/20 -- Mikala Ortiz MD Current Facility-Administered Medications: ??? acetaminophen (TYLENOL) tablet 1,000 mg, 1,000 mg, oral, Once ??? Lactated Ringer's (LR) infusion, 30 mL/hr, intravenous, Continuous ??? sodium chloride 0.9 % irrigation, , , PRN, 500 mL at 12/01/20 0750 ??? sodium chloride 0.9% flush 0.5-20 mL, 0.5-20 mL, intra-catheter, PRN ??? sodium chloride 0.9% flush 0.5-20 mL, 0.5-20 mL, intra-catheter, PRN Social History Tobacco Use Smoking Status Current Every Day Smoker ??? Types: Vaping Substance and Sexual Activity Alcohol Use Not Currently Substance and Sexual Activity Drug Use Yes ??? Types: Marijuana Family History Problem Relation Age of Onset ??? Heart disease Father ??? Diabetes Father's Sister ??? Diabetes Father's Brother Vitals: 12/01/20 0740 BP: 122/79 Pulse: 62 Resp: 18 Temp: 36.3 ??C (97.4 ??F) SpO2: 99% PT: No results found for requested labs within last 720 hours. INR: No results found for requested labs within last 720 hours. APTT: No results found for requested labs within last 720 hours. Hgb A1C: No results found for requested labs within last 720 hours. CBC RBC: No results found for requested labs within last 720 hours. RDW: No results found for requested labs within last 720 hours. MCHC: No results found for requested labs within last 720 hours. MCH: No results found for requested labs within last 720 hours. MCV: No results found for requested labs within last 720 hours. Hct: No results found for requested labs within last 720 hours. Hgb: No results found for requested labs within last 720 hours. WBC: No results found for requested labs within last 720 hours. MPV: No results found for requested labs within last 720 hours. Platelets: No results found for requested labs within last 720 hours. RDW CV: No results found for requested labs within last 720 hours. RDW Sd: No results found for requested labs within last 720 hours. BMP Glucose: No results found for requested labs within last 720 hours. Calcium: No results found for requested labs within last 720 hours. Sodium: No results found for requested labs within last 720 hours. Potassium: No results found for requested labs within last 720 hours. CO2: No results found for requested labs within last 720 hours. Chloride: No results found for requested labs within last 720 hours. BUN: No results found for requested labs within last 720 hours. Creatinine: No results found for requested labs within last 720 hours. DOS Physical Exam Medical history, medications, and allergies reviewed. Attestation: This PAT evaluation 12/01/2020. Airway Exam: Mallampati: II Cervical ROM: FROM TM distance: normal Jaw ROM: full Cardiovascular Exam: Rate: regular Rhythm: regular Pulmonary Exam: LCTA EENT Exam: trachea midline Dental Exam: Upper dentures and lower dentures ( Glued in tightly ) Skin Exam: Skin is warm. Turgor is normal. Abdominal Exam: Abdomen is soft. Current state: Patient's current state is cooperative. Anesthesia Plan ASA 2 Planned anesthesia: General Induction: Induction: intravenous. Postoperative Plan: Postoperative administration opioids intended. Patient's planned disposition post procedure is Outpatient. Informed Consent: Discussed plan with TIE TAPE MACHINE OPERATOR. Anesthesia plan and risks discussed with patient. Plan and Consent Comments: ASA 2, 0 RCRI Scopolamine patch ordered OK to leave in dentures (very stuck per patient) Multimodal analgesia and PONV prophylaxis Flaco Cole MD Consent and Attending signature: I and/or my designee have discussed the anesthesia plan, benefits, possible alternatives, parental presence at time of induction (if indicated), and clinically relevant risks that may include dental injury, unintentional awareness, and/or other complications. The patient and/or parent/legal guardian understand, and agree to proceed. All questions answered. IANCE REPAIR TECHNICIAN documented in this encounter Plan of Treatment Not on file documented as of this encounter Procedures Procedure Name Priority Date/Time Associated Diagnosis Comments CO AN ELECTIVE ENDOTRACHEAL AIRWAY Routine 12/01/2020 8:52 AM APPLIANCE REPAIR TECHNICIAN documented in this encounter Results * CO AN ELECTIVE ENDOTRACHEAL AIRWAY (12/01/2020 8:52 AM APPLIANCE REPAIR TECHNICIAN) Narrative Yvette Phan CRNA - 12/01/2020 8:52 AM APPLIANCE REPAIR TECHNICIAN Yvette Phan CRNA ? 12/01/2020 ??8:52 AM Airway Patient location: OR Urgency: elective Indications for airway management: anesthesia Difficult airway: no Staff: Supervising provider: Nitesh Armstrong MD Placed by: TIE TAPE MACHINE OPERATOR: Yvette Phan CRNA Emergent airway documentation: Risks and benefits discussed: yes Consent obtained: yes Consent given by: patient Airway prep: Preoxygenated: yes Patient position: sniffing MILS maintained throughout: yes Mask difficulty assessment: 0 - not attempted Spontaneous ventilation during airway: absent Sedation level during airway: deep Final airway details: Final airway type: endotracheal airway Tube type: ETT ETT size: 7.5 mm Cuffed: yes Technique used for successful ETT placement: video laryngoscopy Devices/Methods used in placement: intubating stylet Insertion site: oral Blade type: Jasmyne Video blade type: Vallejo Blade size: 3 Cormack-Lehane (direct): grade I - full view of glottis Cuff inflated with: air Placement verified by: auscultation and CO2 detection Airway secured with: silk tape Number of attempts: 1 us Ja Mayo MD ANESTHESIA ORDERABL ES Final Result documented in this encounter Visit Diagnoses Not on filedocumented in this encounter Administered Medications Inactive Administered Medications - up to 3 most recent administrations Medication Order MAR Action Action Date Dose Rate Site dexAMETHasone (DECADRON) 4 mg/mL injection intravenous, Administer over 2 Minutes, As needed, Starting on Tue12/01/20 at 0855, Anesthesia Intra-op Given 12/01/2020 8:55 AM APPLIANCE REPAIR TECHNICIAN 10 mg esmoloL (BREVIBLOC) injection Administer over 1 Minutes, As needed, Starting on Tue12/01/20 at 0842, Anesthesia Intra-op Given 12/01/2020 8:42 AM APPLIANCE REPAIR TECHNICIAN 30 mg fentaNYL (SUBLIMAZE) preservative free injection intravenous, As needed, Starting on Tue12/01/20 at 0902, Anesthesia Intra-op Given 12/01/2020 9:02 AM APPLIANCE REPAIR TECHNICIAN 50 mcg Lactated Ringer's (LR) infusion 30 mL/hr, intravenous, Continuous, Starting on Tue12/01/20 at 0815, Pre-Op Rate/Dose Verify 12/01/2020 8:38 AM APPLIANCE REPAIR TECHNICIAN New Bag 12/01/2020 8:01 AM APPLIANCE REPAIR TECHNICIAN 30 mL/hr 30 mL/hr lidocaine (cardiac) (XYLOCAINE) preservative free injection intravenous, As needed, Starting on Tue12/01/20 at 0842, Anesthesia Intra-op, Indications: Ventricular ArrhythmiasIndications:Ventricular Arrhythmias Given 12/01/2020 8:42 AM APPLIANCE REPAIR TECHNICIAN 100 mg midazolam (VERSED) 1 mg/mL preservative free injection intravenous, Administer over 2 Minutes, As needed, Starting on Tue12/01/20 at 0838, Anesthesia Intra-op Given 12/01/2020 8:38 AM APPLIANCE REPAIR TECHNICIAN 2 mg ondansetron (ZOFRAN) injection intravenous, Administer over 2 Minutes, As needed, Starting on Tue12/01/20 at 0855, Anesthesia Intra-op Given 12/01/2020 8:55 AM APPLIANCE REPAIR TECHNICIAN 4 mg propofoL (DIPRIVAN) IV intravenous, As needed, Starting on Tue12/01/20 at 0842, Anesthesia Intra-op Given 12/01/2020 8:42 AM APPLIANCE REPAIR TECHNICIAN 200 mg rocuronium (ZEMURON) injection intravenous, As needed, Starting on Tue12/01/20 at 0930, Anesthesia Intra-op Given 12/01/2020 9:30 AM APPLIANCE REPAIR TECHNICIAN 20 mg Given 12/01/2020 9:00 AM APPLIANCE REPAIR TECHNICIAN 30 mg succinylcholine (ANECTINE) injection intravenous, As needed, Starting on Tue12/01/20 at 0842, Anesthesia Intra-op Given 12/01/2020 8:42 AM APPLIANCE REPAIR TECHNICIAN 160 mg sugammadex (BRIDION) 100 mg/mL intravenous solution As needed, Starting on Tue12/01/20 at 0944, Anesthesia Intra-op Given 12/01/2020 9:44 AM APPLIANCE REPAIR TECHNICIAN 400 mg documented in this encounter Care Teams Merry Go Round Operator Relationship Specialty Start Date End Date Sita Regan NP [address] [place] [address] PCP - General Nurse Practitioner 10/23/20 documented as of this encounter
== END 2024-10-19 16:09 | disposition home or self-care (01) ==
PROVIDERS: Emergency Provider Registered Nurse; PCP Nurse Practitioner Family
DX: H60.391 Other infective otitis externa, right ear (principal); H65.01 Acute serous otitis media, right ear; F17.290 Nicotine dependence, other tobacco product, uncomplicated
CPT/HCPCS: 99213; G0463

== ENCOUNTER 2024-11-10 08:42 | Emergency (ER) | payer BC, SELFPAY ==
[2024-11-10 08:50] VITALS: BP 127/74; PULSE 70; RESP 18; TEMP 35.9; O2SAT 97
--- NOTE | 2024-11-10 09:13 | ED.EAR ---
HPI - Ear Problem General Chief complaint: Ear Stated complaint: EARACHE Time Seen by Provider: 11/10/24 09:15 Source: patient, RN notes reviewed and old records reviewed Mode of arrival: ambulatory Limitations: no limitations History of Present Illness HPI Narrative: 39-year-old male presents to the [facility] with complaints of left ear pain and swelling. States that started the 07 of November. Was using leftover ear drops he had from prior visit. Already has an appointment with primary care provider on Tuesday, ENT on the 20 of November. Related Data Allergies Allergy/AdvReac Type Severity Reaction Status Date / Time Sulfa (Sulfonamide Allergy Unknown Rash Verified 11/10/24 09:15 Antibiotics) Penicillins Allergy Unknown Verified 11/10/24 09:15 Review of Systems Review of Systems: All systems reviewed & are unremarkable except as noted in HPI and below Constitutional: Constitutional: Reports no additional constitutional complaints ENT: Reports as per HPI and Reports otalgia Cardiovascular: Cardiovascular: Reports no additional cardiovascular complaints, Denies chest pain and Denies dyspnea Respiratory: Respiratory: Reports no additional respiratory complaints, Denies chest congestion, Denies cough and Denies dyspnea Musculoskeletal: Musculoskeletal: Reports no additional musculoskeletal complaints Integumentary/Breasts: Skin/Breast: Reports system reviewed and no additional complaints, except as docu PMFSH Past Medical History Medical History Ear infection Sinusitis Surgical History Surgical History History of appendectomy Family History Family History Father Heart disease Sibling Asthma Social History Social History Tobacco type: e-cigarettes/vaping Additional smoking assessment comments: former tobacco use quit smoking cigarettes 4 years ago Alcohol intake: unknown Substance use: unknown Living arrangements: with family Gender identity (if verbalized by the patient): Male Comments At the time of my signature, I reviewed and agree with the nursing past medical, surgical, social, and family history. There is no relevant family history pertinent to the patient complaint. Exam Const: General: cooperative, healthy appearing, comfortable, no acute distress, well developed, alert and well nourished Nutritional Appearance: well nourished Orientation/consciousness: patient oriented x3 Limitations: no limitations HENMT: Head: normal to inspection Ears: external ears normal, Abnormal EAC present erythema, edema and EAC tenderness; no foreign body and no otic discharge and unable to visualize TM on the left Mouth: Yes Normal oral and palatal mucosa present, Yes lip normal, Yes tongue normal and Yes moist mucous membranes Throat: posterior oropharynx normal, uvula midline and no uvular edema Eyes: General: appearance normal, both eyes and all related structures Alignment and Position: alignment normal Neck: Neck: normal visual inspection, full ROM, no lymphadenopathy and no meningeal signs Chest: Chest palpation & inspection: normal inspection of the chest Resp: Effort & Inspection: normal respiratory effort and able to speak in complete sentences Auscultation: clear to auscultation bilaterally, no crackles, no rales, no rhonchi and no wheezes Cardio: Rate: regular rate Skin: General skin exam: normal color and no rashes or lesions noted Neuro: General: patient oriented x3, gait normal, moves all extremities and no meningeal signs Cognition (Neuro): normal cognition Speech: normal speech Gait exam (Neuro): Normal gait present Extrem: General: normal to inspection, full ROM, capillary refill normal and normal gait Psych: Appearance: grossly normal and well kempt Mental Status: mental status grossly normal Speech and movement: Normal speech and movement present and Clear speech present Affect: normal affect Attitude: cooperative Course Course Level of Care: Express Care Visit Vital Signs Vital signs: Vital Signs Temperature 96.6 F L 11/10/24 08:50 Pulse Rate 70 11/10/24 08:50 Respiratory Rate 18 11/10/24 08:50 Blood Pressure 127/74 11/10/24 08:50 Pulse Oximetry 97 11/10/24 08:50 Oxygen Delivery Room Air 11/10/24 08:50 Temperature 96.6 F L 11/10/24 08:50 Pulse Rate 70 11/10/24 08:50 Respiratory Rate 18 11/10/24 08:50 Blood Pressure 127/74 11/10/24 08:50 Pulse Oximetry 97 11/10/24 08:50 Oxygen Delivery Room Air 11/10/24 08:50 Reviewed Medical Decision Making MDM Narrative Medical decision making narrative: Patient sitting comfortably in exam room. Nontoxic, vitals stable. Patient in no acute distress Patient presents for left ear pain and swelling. On exam significant swelling noted to the ear canal, ear wick was placed with saline, instructed patient to cook pickled meat antibiotic drops in used as soon as he gets them. Patient already has an appointment for primary care as well as ENT established. Discussed with patient that is the most important is to see ENT for further evaluation, testing and treatment. Discharge instructions reviewed with patient, as well as provided in writing per nursing staff. The instructions also include specific and strict return/GO TO THE ER as well as f/u information. All questions have been answered, and the patient deny any further questions with discharge and discharge plan. Some parts of this dictation were generated by voice recognition software and may contain typographical and/or grammatical inaccuracies. Differential Diagnosis Differential Diagnosis: Otitis media, serous otitis, otitis externa Medical Records Medical records reviewed: Yes I reviewed the external patient's medical records. Vital Signs Vital Signs: Vital Signs Temperature 96.6 F L 11/10/24 08:50 Pulse Rate 70 11/10/24 08:50 Respiratory Rate 18 11/10/24 08:50 Blood Pressure 127/74 11/10/24 08:50 Pulse Oximetry 97 11/10/24 08:50 Oxygen Delivery Room Air 11/10/24 08:50 Temperature 96.6 F L 11/10/24 08:50 Pulse Rate 70 11/10/24 08:50 Respiratory Rate 18 11/10/24 08:50 Blood Pressure 127/74 11/10/24 08:50 Pulse Oximetry 97 11/10/24 08:50 Oxygen Delivery Room Air 11/10/24 08:50 Reviewed Lab Data Lab results reviewed: Yes I reviewed the patient's lab results. Labs: Reviewed Critical Care Time Critical Care Time Critical Care Time: No Discharge Plan Discharge Clinical Impression: Otitis externa Qualifiers: Otitis externa type: unspecified type Chronicity: acute Laterality: left Qualified Code(s): H60.502 - Unspecified acute noninfective otitis externa, left ear Patient Disposition: Home, Self-Care Condition: Stable Instructions: Antibiotic Form, Swimmer's Ear (ED) Patient Language: Wolof Prescriptions: New ciprofloxacin HCl [Cipro] 500 mg tablet 500 mg PO Q12H Qty: 14 0RF ciprofloxacin-dexamethasone 0.3-0.1 % drops,suspension 5 drp EACH EAR Q12H 7 Days Qty: 7.5 0RF No Action albuterol sulfate 90 mcg/actuation HFA aerosol inhaler 2 puff INHALATION QID PRN (Reason: shortness of breath or wheezing) Qty: 8 0RF Follow-up/Referrals: Jass,Sita Mack APN [Primary Care Provider] - 3 Days ([facility] follow-up) Stand Alone Forms: Work/School Release IP Time of Disposition: 09:36
--- OUTSIDE RECORDS SUMMARY | 2024-11-17 11:03 | XMS_ITS | Encounter Summary ---
Author Organization [facility] Address [address] [place] [address] Phone Care Team Providers Care Washerette Machine Operator Name Role Phone Sita Regan APRN, CNP Primary Care Provider [phone] Reason for Referral * Radiology Services (Routine) - Closed Specialty Diagnoses / Procedures Referred By Timothy ureña Referred To Contact Radiology Diagnoses Right upper quadrant pain Procedures US ABDOMEN COMPLETE Sita Regan APRN, CNP [address] [place] [address] Phone: tel: fax: Referral ID Status Reason Start Date Expiration Date Visits Re quested Visits Authorized [id number] Closed 09/16/2020 1 1 OYMENT SPECIALIST/PROGRAM MANAGER Encounter Details Date Type Department Care Team (Late st Contact Info) Description 09/16/2020 Transcribe Orders [facility] Central Scheduling [address] [place] [id number] Sita Regan APRN, CNP [address] [place] [address] Right upper quadrant pain (Primary [...] quadrant documented in this encounter Care Teams Washerette Machine Operator Relationship Specialty Start Date End Date Sita Regan APRN, THALIA [address] [place] [address] PCP - General Family Medicine 12/22/18 documented as of this encounter
--- OUTSIDE RECORDS SUMMARY | 2024-11-17 11:03 | XMS_ITS | Referral Summary ---
Author Organization [facility] Address [address] [place] [address] Care Team Providers Care Web Engineer Name Role Phone Unavailable Primary Care Provider Unavailabl e Source Comments [facility],non-owned Affiliates and Associated Physician Practices is amultiple site organization consisting of ambulatory clinics and hospital sitesin [place], [place], [place] and [place]. This disclosure is being madepursuant to the Care Everywhere program and may not contain all information available regarding this patient. Last updated 18.[facility] [employer] Social History Tobacco Use Types Packs/Day Years Used Date Smoking Tobacco: Never Assessed Sex and Gender Information Value Date Recorded Sex Assigned at Not on file Gender Identity Not on file Sexual Orientation Not on file Plan of Treatment Not on file
--- OUTSIDE RECORDS SUMMARY | 2024-11-17 11:03 | XMS_ITS | Encounter Summary ---
Author Organization [employer] Care Team Providers Care Clinical Nursing Professor Name Role Phone Sita Regan APRN, CNP Primary Care Provider [phone] Encounter Details Date Type Department Care Team [...] COVID-19? 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
--- OUTSIDE RECORDS SUMMARY | 2024-11-17 11:03 | XMS_ITS | Encounter Summary ---
Author Organization [facility] Address [address] [place] [address]. [place], [place] [id number] [place] [address] Care Team Providers Care 411 Directory Assistance Operator Name Role Phone Rupert Rodriguez MD Primary Care Provider Unavailable Encounter Details Date Type Department Care Team (Late st Contact Info) Description 09/06/2011 Emergency [facility] [place] [address] Rupert Rodriguez MD Social History Tobacco Use [...] Headache documented in this encounter Care Teams 411 Directory Assistance Operator Relationship Specialty Start Date End Date Rupert Rodriguez MD PCP - General 09/06/11 documented as of this encounter
--- OUTSIDE RECORDS SUMMARY | 2024-11-17 11:03 | XMS_ITS | Clinical Summary ---
Author Organization [facility] Address [address] [place] [address] Care Team Providers Care Product Control And Logistics Analyst Name Role Phone Unavailable Primary Care Provider Unavailabl e Source Comments [facility],non-owned Affiliates and Associated Physician Practices is amultiple site organization consisting of ambulatory clinics and hospital sitesin [place], [place], [place] and [place]. This disclosure is being madepursuant to the Care Everywhere program and may not contain all information available regarding this patient. Last updated 18.[facility] [employer] Social History Tobacco Use Types Packs/Day Years [...] 3 - 19+ 3-dose series) 2002 COVID-19 VACCINE ( - 2023-2 5 season) 2024 INFLUENZA VACCINE (#1) 2024 DEPRESSION SCREENING 11/07/2024 ZOSTER VACCINE (1 of 2) 2033 HIB VACCINE Aged Out No longer eligi ble based on patient's age to complete this topic HPV VACCINE Aged Out No longer eligi ble based on patient's age to complete this topic MENINGOCOCCAL (Group B) VACCINE Aged Out No longer eligible based on patient's age to complete this topic MENINGOCOCCAL VACCINE Aged Out No troy akhil eligible based on patient's age to complete this topic PNEUMOCOCCAL VACCINE Aged Out No long er eligible based on patient's age to complete this topic
--- OUTSIDE RECORDS SUMMARY | 2024-11-17 11:03 | XMS_ITS | Data Portability ---
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 , respira tory specime n - [place] locatio n please- 1500 2019 020 [facility] (Lab), [address] [place], [address], 05/14/2020 05:33:36 respira tory allerge n panel - [facility] c 2023 024 [facility], [address] [place] [address], [address], 05/22/2024 03:08:33 TSH, ultra-s ensitiv e, serum 2023 024 [place] [facility], [address], [place], [address], 05/22/2024 03:08:32 CMP, serum or plasma 2023 024 [facility], [address], [place], [address], 05/22/2024 03:08:32 lipid panel, serum 2023 024 [facility], [address], [place], [address], 05/22/2024 03:08:31 CBC 2023 024 [facility], [address], [place], [address], 05/22/2024 03:08:34 food allerge n panel, serum 2023 024 [facility], [address] [place] [address], [facility] [address], [place], [address], 05/22/2024 03:08:34 Referral None recorde d. Procedures None recorde d. Surgeries None recorde d. Imaging US, abdomen 2019 [facility] Scheduling, [address] [place], [address], 09/25/2020 17:06:46 Medication Orders Zithrom ax Z-Joe 250 mg tablet 2019 020 [facility]/Pharmacy #[id number], [address] [place], [address], 09/16/2020 10:28:43 Medrol (Joe) 4 mg tablets in a dose pack 2019 020 [facility]/Pharmacy #[id number], [address] [facility], [place], [address], 09/16/2020 10:28:50 cetiriz ine 10 mg tablet 2019 020 [facility][id number], [address] [place], [address], 05/17/2024 09:48:36 ofloxac in 0.3 % ear drops [address] [id number] [address] [place], [address], 05/17/2024 10:24:20 neomyci n-polym yxin-hy drocort 3.5 mg-10,0 00 unit/mL -1 % ear drops,[facility] [address] [id number] [address] [place], [address], 11/02/2024 12:15:54 Patient TargetsNo targets recorded. Patient Instructions Encounter Date Encounter Id Patient Instructions Last Modified By Organization Details Last Modified Time 05/14/2020 [id number] Acute Sinusitis: Care Instructions Not available 05/14/2020 12:21:27 Take all antibiotics prescribed to you. If any fever or increase in pain, call/return to office. Not available 05/14/2020 12:21:34 follow up as needed Not available 05/14/2020 12:21:41 09/16/2020 [id number] Increase clear fluids. BRAT (bananas, rice, applesauce, toast) diet. If pain increases or if fever, go to ER. May need to f/u with GI if persists long-term. Keep log of foods/symptoms. Not available 09/16/2020 11:05:13 Plan pending imaging results. f/u as needed DWP barriers to care: none Not available 09/16/2020 11:05:19 05/17/2024 [id number] A healthy lifestyle: care instructions Not available 05/17/2024 10:24:02 eustachian tube problems: care instructions Not available 05/17/2024 10:24:02 Avoid potential triggers, take allergy medication daily. Sleep with windows closed and replace filters in HVAC regularly. Not available 05/17/2024 10:25:10 dwp labs needed, plan pending results Not available 05/17/2024 10:25:16 11/02/2024 [id number] f/u with pcp nsuthan Not available 13:51:04 Reason for Referral None Reported. 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 Not Available [facility] (Lab) [address] [facility], [place], [address], 05/14/2020 05:33:36 05/12/20 20 05/12/2020 SARS CoV 2 RNA (COVI D-19) , QL, flight superintendent-P CR, respi rator y speci men covidcom2 Posit anne marie resul ts are indic ative of the prese nce of SARS- CoV-2 RNA and do not rule out bacte rial infec tion or co-in fecti on with other virus es. Not Available [facility] (Lab) [address] [place], [address], 05/14/2020 05:33:36 05/12/20 20 05/12/2020 SARS CoV 2 RNA (COVI D-19) , QL, flight superintendent-P CR, respi rator y speci men covidcom3 Test resul ts shoul d be used along with other clini fernando obser vatio ns, patie nt histo ry, epide miolo gical infor matio n and labor atory data in makin g the diagn osis. Not Available 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 This test is only autho [...] or revok ed soone r. Not Available 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 This testi ng [facility] [place] [address] (CLIA Licen se #[id number] 34443 5, CAP #[id number], AU-ID #[id number]). Not Available 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 superintendent-P CR, respi rator y speci men covidcom6 Facts heet for healt hcare provi ders: https ://yavalu.ID [place] .gov/ media /1362 56/do wnloa d Facts heet for patie nts: https ://yavalu.ID [place] .gov/ media /1362 57/do wnloa d Not Available [facility] (Lab) [address], [place], [address], 05/14/2020 05:33:36 05/17/20 24 05/18/2024 LIPID PANEL cholesterol, total 142 mg/dL 100-19 9 Not Available [facility] ([facility]) [address] [place], [address], 05/22/2024 03:08:31 05/17/20 24 05/18/2024 LIPID PANEL triglyceride s 62 mg/dL 0-149 Not Available [facility] ([facility]) [address] [place], [address], 05/22/2024 03:08:31 05/17/20 24 05/18/2024 LIPID PANEL HDL cholesterol 35 mg/dL >39 below low normal Not Available [facility] ([facility]) [address] [place], [address], 05/22/2024 03:08:31 05/17/20 24 05/18/2024 LIPID PANEL VLDL cholesterol fernando 13 mg/dL 5-40 Not Available [facility] ([facility]) [address] [facility], [place], [address], 05/22/2024 03:08:31 05/17/20 24 05/18/2024 LIPID PANEL LDL chol calc ([facility]) 94 mg/dL 0-99 Not Available [facility] ([facility]) [address] [facility], [place], [address], 05/22/2024 03:08:31 05/17/20 24 05/18/2024 COMP. METAB OLIC PANEL (14) glucose 97 mg/dL 70-99 Not Available [facility] ([facility]) [address] [facility] [place], [address], 05/22/2024 03:08:31 05/17/20 24 05/18/2024 COMP. METAB OLIC PANEL (14) BUN 12 mg/dL 6-24 Not Available [facility] ([facility]) [address] [facility], [place], [address], 05/22/2024 03:08:31 05/17/20 24 05/18/2024 COMP. METAB OLIC PANEL (14) creatinine 1.03 mg/dL 0.76-1 .27 Not Available [facility] ([facility]) [address] [facility], [place], [address], 05/22/2024 03:08:31 05/17/20 24 05/18/2024 COMP. METAB OLIC PANEL (14) eGFR 94 mL/mi n/1.7 3 >59 Not Available [facility] ([facility]) [address] [facility], [place], [address], 05/22/2024 03:08:31 05/17/20 24 05/18/2024 COMP. METAB OLIC PANEL (14) BUN/creatini ne ratio 12 9-20 Not Available [facility] ([facility]) [address] [place], [address], 05/22/2024 03:08:31 05/17/20 24 05/18/2024 COMP. METAB OLIC PANEL (14) sodium 140 mmol/ L 134-14 4 Not Available [facility] ([facility]) [address] [facility] [place], [address], 05/22/2024 03:08:31 05/17/20 24 05/18/2024 COMP. METAB OLIC PANEL (14) potassium 4.7 mmol/ L 3.5-5. 2 Not Available [facility] ([facility]) [address] [facility] [place], [address], 05/22/2024 03:08:31 05/17/20 24 05/18/2024 COMP. METAB OLIC PANEL (14) chloride 104 mmol/ L 96-106 Not Available [facility] ([facility]) [address] [facility] [place], [address], 05/22/2024 03:08:31 05/17/20 24 05/18/2024 COMP. METAB OLIC PANEL (14) carbon dioxide, total 24 mmol/ L 20-29 Not Available [facility] ([facility]) [address] [facility] [place], [address], 05/22/2024 03:08:31 05/17/20 24 05/18/2024 COMP. METAB OLIC PANEL (14) calcium 10.1 mg/dL 8.7-10 .2 Not Available [facility] ([facility]) [address] [facility] [place], [address], 05/22/2024 03:08:31 05/17/20 24 05/18/2024 COMP. METAB OLIC PANEL (14) protein, total 7.0 g/dL 6.0-8. 5 Not Available [facility] ([facility]) [address] [facility] [place], [address], 05/22/2024 03:08:31 05/17/20 24 05/18/2024 COMP. METAB OLIC PANEL (14) albumin 4.5 g/dL 4.1-5. 1 Not Available [facility] ([facility]) [address] [facility] [place], [address], 05/22/2024 03:08:31 05/17/20 24 05/18/2024 COMP. METAB OLIC PANEL (14) globulin, total 2.5 g/dL 1.5-4. 5 Not Available [facility] ([facility]) [address] [facility] [place], [address], 05/22/2024 03:08:31 05/17/20 24 05/18/2024 COMP. METAB OLIC PANEL (14) bilirubin, total 0.7 mg/dL 0.0-1. 2 Not Available [facility] ([facility]) [address] [facility] [place], [address], 05/22/2024 03:08:31 05/17/20 24 05/18/2024 COMP. METAB OLIC PANEL (14) alkaline phosphatase 70 IU/L 44-121 Not Available [facility] ([facility]) [address] [facility] [place], [address], 05/22/2024 03:08:31 05/17/20 24 05/18/2024 COMP. METAB OLIC PANEL (14) AST (SGOT) 19 IU/L 0-40 Not Available [facility] ([facility]) [address] [facility] [place], [address], 05/22/2024 03:08:31 05/17/20 24 05/18/2024 COMP. METAB OLIC PANEL (14) ALT (SGPT) 23 IU/L 0-44 Not Available [facility] ([facility]) [address] [place], [address], 05/22/2024 03:08:31 05/17/20 24 05/18/2024 TSH RFX ON ABNOR MAL TO FREE T4 TSH 1.110 uIU/m L 0.450- 4.500 Not Available [facility] ([facility]) [address] [place], [address], 05/22/2024 03:08:32 05/17/20 24 05/17/2024 ALLER GENS [...] >100. 00 Very High Not Available [facility] ([facility]) [address] [place], [address], 05/22/2024 03:08:33 05/17/20 24 05/22/2024 ALLER GENS W/TOT AL IGE AREA 8 immunoglobul in E, total 36 IU/mL 6-495 Not Available [facility] ([facility]) [address] [place], [address], 05/22/2024 03:08:33 05/17/20 24 05/22/2024 ALLER GENS W/TOT AL IGE AREA 8 O345-DtB D pteronyssinu s <0.10 kU/L class0 Not Available [facility] ([facility]) [address] [place], [address], 05/22/2024 03:08:33 05/17/20 24 05/22/2024 ALLER GENS W/TOT AL IGE AREA 8 P922-ZwC D farinae <0.10 Not Available [facility] ([facility]) [address] [place], [address], 05/22/2024 03:08:33 05/17/20 24 05/22/2024 ALLER GENS W/TOT AL IGE AREA 8 N431-OdM CAT dander <0.10 Not Available [facility] ([facility]) [address] [place], [address], 05/22/2024 03:08:33 05/17/20 24 05/22/2024 ALLER GENS W/TOT AL IGE AREA 8 N071-JmI dog dander <0.10 Not Available [facility] ([facility]) [address] [place], [address], 05/22/2024 03:08:33 05/17/20 24 05/22/2024 ALLER GENS W/TOT AL IGE AREA 8 a883-VuT bermuda grass 0.33 kU/L classi abnormal Not Available [facility] ([facility]) [address] [place], [address], 05/22/2024 03:08:33 05/17/20 24 05/22/2024 ALLER GENS W/TOT AL IGE AREA 8 g547-YfZ elizabeth grass 0.12 kU/L class0 /I abnormal Not Available [facility] ([facility]) [address] [place], [address], 05/22/2024 03:08:33 05/17/20 24 05/22/2024 ALLER GENS W/TOT AL IGE AREA 8 S579-IaT cockroach, yoruba <0.10 kU/L class0 Not Available [facility] ([facility]) [address] [place], [address], 05/22/2024 03:08:33 05/17/20 24 05/22/2024 ALLER GENS W/TOT AL IGE AREA 8 P583-OlF penicillium chrysogen <0.10 Not Available [facility] ([facility]) [address] [place], [address], 05/22/2024 03:08:33 05/17/20 24 05/22/2024 ALLER GENS W/TOT AL IGE AREA 8 R214-NqH cladosporium herbarum <0.10 Not Available [facility] ([facility]) [address] [facility], [place], [address], 05/22/2024 03:08:33 05/17/20 24 05/22/2024 ALLER GENS W/TOT AL IGE AREA 8 A190-DxP aspergillus fumigatus <0.10 Not Available [facility] ([facility]) [address] [facility], [place], [address], 05/22/2024 03:08:33 05/17/20 24 05/22/2024 ALLER GENS W/TOT AL IGE AREA 8 W892-YpQ alternaria alternata <0.10 Not Available [facility] ([facility]) [address] [facility], [place], [address], 05/22/2024 03:08:33 05/17/20 24 05/22/2024 ALLER GENS W/TOT AL IGE AREA 8 A506-QkL maple/box elder 0.15 kU/L class0 /I abnormal Not Available [facility] ([facility]) [address] [facility], [place], [address], 05/22/2024 03:08:33 05/17/20 24 05/22/2024 ALLER GENS W/TOT AL IGE AREA 8 C804-JiD cedar, mountain 0.27 kU/L class0 /I abnormal Not Available [facility] ([facility]) [address] [facility], [place], [address], 05/22/2024 03:08:33 05/17/20 24 05/22/2024 ALLER GENS W/TOT AL IGE AREA 8 I712-FgS oak, white <0.10 kU/L class0 Not Available [facility] ([facility]) [address] [place], [address], 05/22/2024 03:08:33 05/17/20 24 05/22/2024 ALLER GENS W/TOT AL IGE AREA 8 I463-ObO elm, citizen of [place] 0.47 kU/L classi abnormal Not Available [facility] ([facility]) [address], [place], [address], 05/22/2024 03:08:33 05/17/20 24 05/22/2024 ALLER GENS W/TOT AL IGE AREA 8 L442-YeD maple leaf sycamore <0.10 kU/L class0 Not Available [facility] ([facility]) [address], [place], [address], 05/22/2024 03:08:33 05/17/20 24 05/22/2024 ALLER GENS W/TOT AL IGE AREA 8 B756-FfT cottonwood <0.10 Not Available [facility] ([facility]) [address] [facility], [place], [address], 05/22/2024 03:08:33 05/17/20 24 05/22/2024 ALLER GENS W/TOT AL IGE AREA 8 J128-AsG nathan, white <0.10 Not Available [facility] ([facility]) [address] [facility], [place], [address], 05/22/2024 03:08:33 05/17/20 24 05/22/2024 ALLER GENS W/TOT AL IGE AREA 8 Z841-ZqN walnut <0.10 Not Available [facility] ([facility]) [address], [place], [address], 05/22/2024 03:08:33 05/17/20 24 05/22/2024 ALLER GENS W/TOT AL IGE AREA 8 I706-FqP pecan, hickory <0.10 Not Available [facility] ([facility]) [address] [facility], [place], [address], 05/22/2024 03:08:33 05/17/20 24 05/22/2024 ALLER GENS W/TOT AL IGE AREA 8 T727-CzA white mulberry <0.10 Not Available [facility] ([facility]) [address] [facility], [place], [address], 05/22/2024 03:08:33 05/17/20 24 05/22/2024 ALLER GENS W/TOT AL IGE AREA 8 M064-AkQ ragweed, short <0.10 Not Available [facility] ([facility]) [address] [facility], [place], [address], 05/22/2024 03:08:33 05/17/20 24 05/22/2024 ALLER GENS W/TOT AL IGE AREA 8 G409-TtB thistle, algerian <0.10 Not Available [facility] ([facility]) [address] [facility], [place], [address], 05/22/2024 03:08:33 05/17/20 24 05/22/2024 ALLER GENS W/TOT AL IGE AREA 8 C434-DzE pigweed, common 0.33 kU/L classi abnormal Not Available [facility] ([facility]) [address] [facility], [place], [address], 05/22/2024 03:08:33 05/17/20 24 05/22/2024 ALLER GENS W/TOT AL IGE AREA 8 F046-UcC rough marshelder 0.28 kU/L class0 /I abnormal Not Available [facility] ([facility]) [address] [facility], [place], [address], 05/22/2024 03:08:33 05/17/20 24 05/22/2024 ALLER GENS W/TOT AL IGE AREA 8 E511-SnG mouse urine <0.10 kU/L class0 Not Available [facility] ([facility]) [address] [facility], [place], [address], 05/22/2024 03:08:33 05/17/20 24 05/22/2024 FOOD ALLER GY PROFI LE X622-AxD egg white <0.10 Not Available [facility] ([facility]) [address] [place], [address], 05/22/2024 03:08:34 05/17/20 24 05/22/2024 FOOD ALLER GY PROFI LE Z586-CqF peanut 2.08 kU/L classi ii abnormal Not Available [facility] ([facility]) [address] [place], [address], 05/22/2024 03:08:34 05/17/20 24 05/22/2024 FOOD ALLER GY PROFI LE Z383-PbO soybean 0.44 kU/L classi abnormal Not Available [facility] ([facility]) [address] [place], [address], 05/22/2024 03:08:34 05/17/20 24 05/22/2024 FOOD ALLER GY PROFI LE B184-VbD milk <0.10 kU/L class0 Not Available [facility] ([facility]) [address] [place], [address], 05/22/2024 03:08:34 05/17/20 24 05/22/2024 FOOD ALLER GY PROFI LE A960-SnZ clam <0.10 Not Available [facility] ([facility]) [address] [place], [address], 05/22/2024 03:08:34 05/17/20 24 05/22/2024 FOOD ALLER GY PROFI LE J209-LkU shrimp <0.10 Not Available [facility] ([facility]) [address] [place], [address], 05/22/2024 03:08:34 05/17/20 24 05/22/2024 FOOD ALLER GY PROFI LE N083-WjW walnut 1.19 kU/L classi i abnormal Not Available [facility] ([facility]) [address] [facility], [place], [address], 05/22/2024 03:08:34 05/17/20 24 05/22/2024 FOOD ALLER GY PROFI LE B721-IcS codfish <0.10 kU/L class0 Not Available [facility] ([facility]) [address] [facility], [place], [address], 05/22/2024 03:08:34 05/17/20 24 05/22/2024 FOOD ALLER GY PROFI LE M243-OhA scallop <0.10 Not Available [facility] ([facility]) [address] [facility], [place], [address], 05/22/2024 03:08:34 05/17/20 24 05/22/2024 FOOD ALLER GY PROFI LE A771-VuP wheat 0.28 kU/L class0 /I abnormal Not Available [facility] ([facility]) [address] [facility], [place], [address], 05/22/2024 03:08:34 05/17/20 24 05/22/2024 FOOD ALLER GY PROFI LE X290-SdM corn 1.24 kU/L classi i abnormal Not Available [facility] ([facility]) [address] [place], [address], 05/22/2024 03:08:34 05/17/20 24 05/22/2024 FOOD ALLER GY PROFI LE V303-OvI sesame seed 1.51 kU/L classi ii abnormal Not Available [facility] ([facility]) [address] [place], [address], 05/22/2024 03:08:34 05/17/20 24 05/18/2024 CBC, PLATE LET, NO DIFFE RENTI AL WBC 6.9 x10e3 /uL 3.4-10 .8 Not Available [facility] ([facility]) [address] [place], [address], 05/22/2024 03:08:34 05/17/20 24 05/18/2024 CBC, PLATE LET, NO DIFFE RENTI AL RBC 5.24 x10e6 /uL 4.14-5 .80 Not Available [facility] ([facility]) [address] [facility], [place], [address], 05/22/2024 03:08:34 05/17/20 24 05/18/2024 CBC, PLATE LET, NO DIFFE RENTI AL hemoglobin 16.0 g/dL 13.0-1 7.7 Not Available [facility] ([facility]) [address] [facility], [place], [address], 05/22/2024 03:08:34 05/17/20 24 05/18/2024 CBC, PLATE LET, NO DIFFE RENTI AL hematocrit 49.4 % 37.5-5 1.0 Not Available [facility] ([facility]) [address] [facility], [place], [address], 05/22/2024 03:08:34 05/17/2005/18/2024 CBC, PLATE LET, NO DIFFE RENTI AL MCV 94 fL 79-97 Not Available [facility] ([facility]) [address] [place], [address], 05/22/2024 03:08:34 05/17/2005/18/2024 CBC, PLATE LET, NO DIFFE RENTI AL MCH 30.5 pg 26.6-3 3.0 Not Available [facility] ([facility]) [address] [place], [address], 05/22/2024 03:08:34 05/17/20 24 05/18/2024 CBC, PLATE LET, NO DIFFE RENTI AL MCHC 32.4 g/dL 31.5-3 5.7 Not Available [facility] ([facility]) [address] [place], [address], 05/22/2024 03:08:34 05/17/20 24 05/18/2024 CBC, PLATE LET, NO DIFFE RENTI AL RDW 12.5 % 11.6-1 5.4 Not Available [facility] ([facility]) [address] [facility], [place], [address], 05/22/2024 03:08:34 05/17/20 24 05/18/2024 CBC, PLATE LET, NO DIFFE RENTI AL platelets 325 x10e3 /uL 150-45 0 Not Available [facility] ([facility]) [address] [facility], [place], [address], 05/22/2024 03:08:34 09/25/20 20 09/17/2020 US, abdom en No observ ation record ed. [email or web address]) Scheduling [address] [place], [address], 05/17/2024 10:27:37 10/14/20 20 10/14/2020 NM, hepat obili sherry scan, w/ CCK No observ ation record ed. [facility] ([facility]) Registration/ Lab [address] [place], [address], 05/17/2024 10:27:37 Result Notes None recorded. Problems Name Problem SNOMED Code Status Onset Date Resolution Date Notes Provider Name and Address Organization Details Recorded Time Obese 128545881 Active 2018 Sita Fregoso APN, FIELD TECHNICAL SPECIALIST-C Attn: Lydia sin,[address] [facility], [place], [address], [place] - [facility] 4 10:05:38 Foot pain 99987010 Active 2018 Sita Fregoso APN, FIELD TECHNICAL SPECIALIST-C Attn: Lydia g,[address], [place], [address], [place] - [facility] 4 10:05:38 Tobacco dependence syndrome 30462385 Active 2018 Sita Fregoso APN FIELD TECHNICAL SPECIALIST-C Attn: Lydia sin,[address], [place], [address], [facility] - SI 4 10:05:38 Generalized anxiety disorder 44949576 Active 2018 Sita Fregoso APN FIELD TECHNICAL SPECIALIST-C Attn: Lydia sin,[address] [facility], [place], [address], [facility] - SI 4 10:05:38 Posterior rhinorrhea 18219311 Active 2019 Sita Fregoso APN FIELD TECHNICAL SPECIALIST-C Attn: Lydia sin,[address], [place], [address], [facility] - SI 4 10:05:38 Problem Notes None recorded. Procedures Surgical History Date Name Laterality Status Provider Name and Address Organization Details Recorded Time 11/07/19 Cholecystectomy completed EFRAIN Boyd [facility] 05/17/2024 09:52:38 Appendectomy completed Ban Small MA [facility] 12/12/2018 10:11:05 Imaging Results Imaging Date Name Status LastModified by Organization Details LastModified Time 09/17/2020 US, abdomen completed [facility]) Scheduling [address] [place], [address], 05/17/2024 10:27:37 10/14/2020 NM, hepatobiliary scan, w/ CCK completed [facility] ([facility]) Registration/Lab [address] [place], [address], 05/17/2024 10:27:37 Procedure Notes None recorded. Medical Equipment None Reported. Allergies Allergen ID Allergen Name Allergen Category Reaction Reaction Severity Criticality Documentation Date Start Date Code Code System Note Provider Name and Address Organization Details Recorded Time 290778 Substance with sulfonami de structure and antibacte rial mechanism of action (substanc e) medicatio n Not available Not available Not available 12/12/2018 17245 8005 SNOMED Ban Small [place] null, [place] - [place] 9 10:10:27 379287 Flonase medicatio n Not available Not available Not available 08/14/2019 51631 RxNorm foggy head Azalia OMID FloresLacy reanna [place] - SIF 4 09:48:30 Medications Name Sig Start Date [...] completed Not Available Not Available Not Available ciprofloxac in 500 mg tablet active Not Available Not Available Not Available ofloxacin [...] completed Not Available Not Available Not Available cefdinir 300 mg capsule 11/02 completed Not Available Not Available Not Available amoxicillin 875 mg-potassiu m clavulanate 125 mg tablet Take 1 tablet every 12 hours by oral route for 3 days. 08/14 completed Not Available Not Available Not Available neomycin-po lymyxin-hyd rocort 3.5 mg-10,000 unit/mL-1 % ear drops,susp INSTILL 3 DROPS INTO AFFECTED EAR(S) BY OTIC ROUTE 3 TIMES PER DAY for 5 days active Not Available Not Available No t Available ciprofloxac in 0.3 %-dexametha sone 0.1 % ear drops,suspe nsion active Not Available Not Available Not Available Vitals Date Recorded Body height Provider Name an d Address Organization Details Last Updated DateTime 05/12/2020 172.72 cm Ban Small MA [facility] 2019 15:27:43 Date Recorded Body height Provider Name an d Address Organization Details Last Updated DateTime 05/14/2020 172.72 cm Ban Small MA [facility] 2019 12:05:48 Date Recorded Body height Body mass index (BMI) Body weight Oxygen saturation Oxygen saturation in Arterial blood by Pulse oximetry Respiratory rate Body temperature Heart rate Systolic blood pressure Diastolic blood pressure Provider Name and Address Organization Details Last Updated DateTime 4 172.72 cm 35.1 kg/m2 528066. 84 g 96 % 96 % 16 /min 97.5 [degF] 74 /min 114 mm[Hg] 76 mm[Hg] EFRAIN Boyd [facility] 4 09:54:11 Date Recorded Body height Body mass index (BMI) Body weight Body temperature Oxygen saturation Oxygen saturation in Arterial blood by Pulse oximetry Heart rate Systolic blood pressure Diastolic blood pressure Provider Name and Address Organization Details Last Updated DateTime 4 172.72 cm 36.2 kg/m2 041019. 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 11/02/2024 Information not available 11/02/2024 What Is Your Relationship Status? Information not [...] Anxious, Or Unable To Sleep At Night)? [id number] Information not available 05/17/2024 Do You Use Any Illicit Or Recreational Drugs? Yes Marijordan Information not available 05/17/2024 Do You Use Sunscreen Routinely? No Information not available 12/12/2018 Has Tobacco Cessation Counseling Been Provided? Yes Information not available 01/11/2019 On What Date Was Tobacco Cessation Counseling Provided? 11/02/2024 Information not available 11/02/2024 How Many Years Have You Smoked Tobacco? [...] Atrial Fibrillation N High Blood Pressure N Kidney or Bladder Problems N Thyroid Problems N GI Problems N Depression N COPD N Blood Clots N Skin Problems N Anemia N Heart Attack (NH) N Anxiety Disorder N Diabetes N Muscle, Joint, or Bone Problems N Seizures/Epilepsy N Have you had a colonoscopy in the last 1 0 years? N Acid Reflux (GERD) N Cancer N Stroke N Asthma N Allergies N Have you had a PSA blood test in the las t year? N Substance Abuse N High Cholesterol N Hepatitis N Liver Disease N Headaches N Osteoporosis N Heart Failure N Immunizations Vaccine Type Date Status Note Provider Nam e and Address Organization Details Recorded Time Influenza, split virus, trivalent, preservative 5 completed Sita Fregoso APN, FNP-C Attn: [address] [place], [address], [facility] 05/17/2024 10:05:16 Tdap 9 completed Not Available [facility] 11/24/2019 02:37:04 Influenza, split virus, quadrivalent, preservative 9 completed Not Available [facility] 11/24/2019 02:39:49 Past Encounters Encounter ID Performer Location Encounter Start Date Encounter Closed Date Diagnosis/Indication Diagnosis SNOMED-CT Code Diagnosis ICD10 Code Diagnosis Note [id number] Sita Fregoso APN, FNP-C [place] (Adult Med) [address] [place] [address] 12/12/2018 09:54:32 12/15/2018 08:51:26 Adult health examination 884392876 Z00.01 Encouraged patient to eat well balanced meals, live active lifestyle and attend routine vision/den chula apts. Obese 910338099 E66.9 advised low fat, low cholestero l, low carb diet, regular exercise and weight reduction. Testicular mass 94975257 N50.89 mass on right testicle, approx 6 months, no pain, pt refused exam but is open to U/S, will provide order, review possible outcomes with pt, pt agrees to have testing done Administra tion of diphtheria, pertussis, and tetanus vaccine 479377378 Z23 [facility] handout provided Generalize d anxiety disorder 28195476 F41.1 dwp breathing techniques and exercises he can do to help remain calm when he feels panic coming on; not open to at this time, -suici de last year and he found her in their closet Foot pain 58448712 M79.6 71 pain in right heel, thinks he has a bone spur, none palpated, referred to podiatry Tobacco de pendence syndrome 92319713 F17.200 Smoking cessation encouraged . [id number] Sita Fregoso APN, FNP-C [place] ([facility]) [address] [place] [address] 01/11/2019 08:26:01 01/12/2019 09:38:57 Sinusitis 94972938 J32.9 sinus pressure with purulent drainage, start augmentin bid x 7 days Wheezing 81629826 R06.2 dwp inhaler use prn Tobacco user 053148342 Z 72.0 Smoking cessation encouraged . [id number] Sita Fregoso APN, FNP-C [place] ([facility]) [address] [place] [address] 08/14/2019 08:30:21 08/15/2019 08:46:44 Administration of influenza vaccine 59227092 Z23 [facility] handout provided Benign par oxysmal positional vertigo 807125516 H81.13 dwp exercises, cont chiropract or as needed, , pt declined meclizine rx offer Acute otitis media 36443 03 H65.01 right TM with erythema and purulent middle ear fluid, start amoxicilli n 500 mg capsule Dysfunctio n of eustachian tube 79392693 H68.003 pt to cont taking flonase he has at home-sensi mist [id number] Sita Fregoso APN, FNP-C [place] ([facility]ult [facility]) [address] [place] [address] 02/05/2020 08:17:33 02/05/2020 15:53:44 Acute sinusitis 75833444 J01.90 sinus pressure with purulent drainage, start amox 500 mg TID x 10 days Posterior rhinorrhea 758 39905 R09.82 dwp starting one a day allergy Wheezing 65412535 R06.2 dwp inhaler use prn [id number] [place] [address] [place] [address] 05/12/2020 13:15:18 05/13/2020 16:03:05 Suspected COVID-19 264884845 Z03.212 [id number] Sita Fregoso APN, FNP-C [place] ([facility]ult [facility]) [address] [place] [address] 05/14/2020 11:57:33 05/16/2020 09:23:59 Acute sinusitis 82830648 J01.90 sinus pressure with purulent drainage, pt requested zpack, had GI issues with pcn before Posterior rhinorrhea 758 00188 R09.82 dwp starting one a day allergy [id number] Sita Fregoso APN, FNP-C [place] ([facility]) [address] [place] [address] 09/16/2020 08:23:07 09/17/2020 05:18:55 Right upper quadrant pain 268290126 R10.11 pt with increasing pt to ruq with radiation laterally to posterior, will get US to start, avoid fatty foods, soda etc [id number] Sita Fregoso APN, FNP-C [place] ([facility]) [address] [place] [address] 05/17/2024 09:22:12 05/22/2024 13:56:28 Adult health examination 434943604 Z00.01 Encouraged patient to eat well balanced meals, live active lifestyle and attend routine vision/den chula apts. Obesity 996246717 E66.8 advised low fat, low cholestero l diet, regular exercise and weight reduction. Dysfunctio n of eustachian tube 10621098 H68.003 pt to cont taking flonase he has at home Environmental allergy 42 4161409 T78.49XA recurrent nasal drainage, cont otc claritin Otitis ext lui of left ear 9523783388 589720 H60.92 left canal inflamed,r x abx dropskeep ears free of water Posterior rhinorrhea 758 70974 R09.82 cont claritinwi ll check allergy lab [id number] MD [facility] [place] (Adult Med) [address] [place] [address] 11/02/2024 11:43:57 11/05/2024 09:43:03 Otitis externa of right ear 6083869547 350758 H60.91 vs chronic serous otitis media -pt has apt to see Dr.Fernand kaminski-pt has completed oral antibiotic -avoid q tip Health Concerns Section Related Observation LastModified by Organization Detai ls LastModified Time None Recorded Concern Status LastModified by Organization Details LastModified Time None Recorded Advance Directives Directive N: Payers Encounter Date Sequence Insurance Name Policy Number Policy [place] Covered Member ID [place] Member ID Guarantor Name 05/12/2020 1 [facility] (MEDICAID HMO) [id number] Godfrey Niels [id number] Godfrey Niels 05/14/2020 1 [facility] (MEDICAID HMO) [id number] Godfrey Niels [id number] Godfrey Niels 09/16/2020 1 [facility] (MEDICAID HMO) [id number] Godfrey Niels [id number] Godfrey Niels 05/17/2024 2 [facility] [id number] Godfrey J Niels [id number] Godfrey Niels 11/02/2024 1 [facility]: (PPO) [id number] Godfrey Niels [id number] Godfrey Niels Notes Date Note Type Note Provider Name and Address Organization Details Recorded Time 05/12/2020 text/html COVID ScreeningReported bypatient.Onset/Durati on of fever:no fever Associated Symptoms:cough;shortne ss of breath Context/Exposure:trave l or residence in high risk area of COVID-19; travel (where ) ([facility] 04/27/2020)COVID-19 Symptoms March 2020Reported bypatient.COVID-19 Signs and Symptomschills improving; muscle pain same; headache same; sore throat same; fatigue same Contacts and Exposureclose contact with a confirmed or suspected case of COVID-19; reside in or traveled to areas where widespread community transmission has been reported Onset/Timing:date of symptoms onset: (7 days ago) Associated Symptoms:fatigue;runny nose;body aches CJ Eduardo SILeon 05/12/2020 15:39:13 05/14/2020 text/html Upper Respirator y SymptomsReported bypatient.Location:hea d; chest Quality:productive cough;congested;hackin g cough Context:no foreign travel; non-smoker;sick contact Associated Symptoms:no change in number of pillows needed to sleep at night; no sweats; no fever; no significant weight gain; no significant weight loss; no sore throat; no vomiting; no diarrhea; no rash; no nausea;green sputum;shortness of breath;wheezingNotes:t ickle in throat-sinus drainage; headache and felt chest heaviness Sita Fregoso APN, NATC Attn: [address]ing[address] [place], [address], [facility] 05/14/2020 12:24:26 09/16/2020 text/html RUQ pain for [...] any other covid symptoms Sita Fregoso APN, FNP-C Attn: Accounting[address] [place], [address], [facility] 09/16/2020 11:07:29 05/17/2024 text/html Still having chr onic ear infections.needs to re est care- has not had pcp since last visit here Sita Fregoso APN, FNP-C Attn: [address]ing[address] [place], [address], [facility] 05/17/2024 10:28:05 11/02/2024 text/html EaracheReported bypatient.Location:[facility] Quality:tension (and itchy) Severity:intermittent Duration:symptoms lasting over 2 weeks Context:no sick contacts Modifying Factors:does not hurt to lie on, or pull on ear; does not hurt to chew Associated Symptoms:no hearing loss; no nose/sinus problems;popping noise in the ears Ilda Ramirez MD Attn: [address]ing[address] [place], [address], [facility] 11/02/2024 13:51:48
--- OUTSIDE RECORDS SUMMARY | 2024-11-17 11:03 | XMS_ITS | Encounter Summary ---
Author Organization [facility] Address [address] [place] [address] Care Team Providers Care Fisher Mussel Name Role Phone Unavailable Primary Care Provider Unavailabl e Encounter Details Date Type Department Care Team (Late st Contact Info) Description 02/05/1998 Orders Only [facility] - Laboratory [address] [place], [place] [address] ProviderMikala MD Social History Tobacco Use Types [...] MICRO EXAM BRITTANIE 02/05/1998 11 :52 AM PATCH DRILLER documented in this encounter Results * GROSS + MICRO EXAM (02/05/1998 11:52 AM PATCH DRILLER) Result CASE NUMBER [id number] Comment: ORDERING [...] (GROSS ONLY) CODE 1 CPT ??Level I ??33266 RELEASED BY ?Eduar,CHICHI PRICE MISCELLANEOUS SAMPLES / Unknown 02/05/1998 11:52 AM PATCH DRILLER 02/05/1998 11:52 AM PATCH DRILLER Historical Provider LAB - PATHOLOGY/C YTOLOGY ORDERABLES documented in this encounter Visit Diagnoses Not on filedocumented in this encounter
--- OUTSIDE RECORDS SUMMARY | 2024-11-17 11:03 | XMS_ITS | Clinical Summary ---
Author Organization [facility] Address [address] [place] [address] Phone Care Team Providers Care Rock Duster Name Role Phone Jass, Sita SANCHEZ CNP Primary Care Provider [phone] Allergies Active Allergy Reactions Criticality Noted Date Comments Dzrhtlcxshtomkm-Zyjdppc-Ml Itching 9 Sulfa Antibiotics Unknown 01/03/2019 Medications [...] Comments Blood Pressure 146/76 09/17/2020 11:22 AM TWILL CUTTER Pulse 80 09/17/2020 11:22 AM TWILL CUTTER Temperature 36.2 ??C (97.2 ??F) 09/17/2020 9:27 AM CS T Respiratory Rate 16 09/17/2020 11:22 AM TWILL CUTTER Oxygen Saturation 98% 09/17/2020 11:22 AM TWILL CUTTER Inhaled Oxygen Concentration - - Weight 102.1 kg (225 lb) 10/14/2020 8:03 AM TWILL CUTTER Height 175.3 cm (5' 9 ) 10/14/2020 8:03 AM TWILL CUTTER Body Mass Index 33.23 10/14/2020 8:03 AM TWILL CUTTER Plan of Treatment Health Maintenance Due Date [...] this topic Insurance MEDICAID [place] Care Teams Rock Duster Relationship Specialty Start Date End Date Sita Regan APRN, THALIA [address] [place] [address] PCP - General Family Medicine 12/22/18
--- OUTSIDE RECORDS SUMMARY | 2024-11-17 11:03 | XMS_ITS | Clinical Summary ---
Author Organization [facility] Address [address] [place] [address]. [place], [place] [address] [place] [address] Care Team Providers Care Heel Varnisher Name Role Phone Unavailable Primary Care Provider [...]
--- OUTSIDE RECORDS SUMMARY | 2024-11-17 11:03 | XMS_ITS | Encounter Summary ---
Author Organization [employer] Care Team Providers Care Crayon Sawyer Name Role Phone Sita Regan APRN, CNP Primary Care Provider [phone] Encounter Details Date Type Department Care Team [...] COVID-19? No / Unsure 10/14/2020 7:48 AM COMPUTER SPECIALIST documented as of this encounter Plan of Treatment Not on file documented as of this encounter Visit Diagnoses Not on filedocumented in this encounter Care Teams Crayon Sawyer Relationship Specialty Start Date End Date Sita Regan APRN, CNP [address] [place] [address] PCP - General Family Medicine 12/22/18 documented as of this encounter
--- OUTSIDE RECORDS SUMMARY | 2024-11-17 11:03 | XMS_ITS | Encounter Summary ---
Author Organization [facility] Address [address] [place] [place] [address] Phone Care Team Providers Care Government Instructor Name Role Phone Sita Regan APRN, CNP Primary Care Provider [phone] Reason for Referral * Radiology Services (Routine) - Closed Specialty Diagnoses / Procedures Referred By Contstone t Referred To Contact Radiology Diagnoses Right upper quadrant pain Procedures NM HEPATOBILIARY WITH PHARM Sita Regan APRN, CNP [address] [place] [address] Phone: tel: fax: Referral ID Status Reason Start Date Expiration Date Visits Re quested Visits Authorized [id number] Closed 09/26/2020 1 1 UP OPERATOR Encounter Details Date Type Department Care Team (Late st Contact Info) Description 09/26/2020 Transcribe Orders [facility] Central Scheduling [address] [place] [id number] Sita Regan APRN, CNP [address] [place] [address] Right upper quadrant pain (Primary [...] COVID-19? No / Unsure 09/17/2020 9:27 AM HEAD UP OPERATOR documented as of this encounter Plan of Treatment Not on file documented as of this encounter Results * NM HEPATOBILIARY WITH PHARM (10/14/2020 9:47 AM HEAD UP OPERATOR) Anatomical Region Laterality Modality Abdomen N/A Nuclear Medicine 10/14/2020 10:2 7 AM HEAD UP OPERATOR Impressions 10/14/2020 10:29 AM HEAD UP OPERATOR IMPRESSION: ?? No scintigraphic evidence of cystic duct obstruction. Suboptimal contractile response of the gallbladder to fatty meal stimulation. Differential considerations include biliary dyskinesia and chronic cholecystitis. Narrative 10/14/2020 10:29 AM HEAD UP OPERATOR EXAM DESCRIPTION: ?? NM HEPATOBILIARY WITH PHARM [...] AM T: ??10/14/2020 10:27 AM Report ID: [id number] Reading Location: ??[phone].[facility] Procedure Note Kris Jung MD - 10/14/2020 [...] Kris Jung M.D. JA: MALIK Report ID: [id number] Reading Location: [phone].[facility] IMPRESSION: No scintigraphic evidence of cystic duct obstruction. Suboptimal contractile response of the gallbladder to fatty meal stimulation. Differential considerations include biliary dyskinesia and chronic cholecystitis. Sita Regan APRN, CNP [facility] [place] ORDERABLES Final R esult documented in this encounter Visit Diagnoses Diagnosis Right upper quadrant pain- Primary Abdominal pain, right upper quadrant Right upper quadrant pain Abdominal pain, right upper quadrant documented in this encounter Care Teams Government Instructor Relationship Specialty Start Date End Date Sita Regan APRN, CNP [address] [place] [address] PCP - General Family Medicine 12/22/18 documented as of this encounter
--- OUTSIDE RECORDS SUMMARY | 2024-11-17 11:03 | XMS_ITS | Clinical Summary ---
Author Organization [facility] Address [address] [place] [address] Care Team Providers Care Supervisor Show Operations Name Role Phone Sita Regan NP Primary Care Provider [phone] Allergies Active Allergy Reactions Criticality Noted Date Comments Fluticasone Propionate Headache Low 10/28/2020 Vpanuzjaxvjdluw-Wqncvid-Yi Itching Low 9 Sulfa (Sulfonamide Antibiotics) Unknown [...] 10/28/2020 Assessment & Plan (10/28/2020 12:23 PM INSTALLATION TECH): hida scan shows EF at 0%. Ultrasound demonstrated gallstones as well. The procedure along with the risks and benefits and post operative period were discussed with the patient to which he agrees. Will plan for laparoscopic cholecystectomy. Discussed low fat diet. Dermatofibroma 10/28/2020 Assessment & Plan (10/28/2020 12:22 PM INSTALLATION TECH): We discussed removal x3, patient states he [...] on file Legal Sex Male 11:53 PM INSTALLATION TECH Gender Identity Not on file Sexual Orientation Not on file Obstetrics History Last Filed Vital Signs Vital Sign Reading Time Taken Comments Blood Pressure 124/79 12/15/2020 1:16 PM INSTALLATION TECH Pulse 65 12/15/2020 1:16 PM INSTALLATION TECH Temperature 36.5 ??C (97.7 ??F) 12/15/2020 1:16 PM CS T Respiratory Rate 20 12/01/2020 2:29 PM INSTALLATION TECH Oxygen Saturation 97% 12/01/2020 2:29 PM INSTALLATION TECH Inhaled Oxygen Concentration - - Weight 103.6 kg (228 lb 4.8 oz) 12/15/2020 1:16 PM INSTALLATION TECH Height 172.7 cm (5' 8 ) 12/15/2020 1:16 PM INSTALLATION TECH Body Mass Index 34.71 12/15/2020 1:16 PM INSTALLATION TECH Plan of Treatment Not on file Insurance [facility] Care Teams Supervisor Show Operations Relationship Specialty Start Date End Date Sita Regan NP [address] [place] [address] PCP - General Nurse Practitioner 10/23/20
--- OUTSIDE RECORDS SUMMARY | 2024-11-17 11:03 | XMS_ITS | Encounter Summary ---
Author Organization [facility] Address [address] [place] [address] Phone Care Team Providers Care Starch And Prosize Mixer Name Role Phone ReganBroSitamurtaza SANCHEZ CNP Primary Care Provider [phone] Reason for Visit * Reason Comments Abdominal Pain Encounter Details Date Type Department Care Team (Late st Contact Info) Description 09/17/2020 9:31 AM GENETIC SUPERVISOR - 09/17/2020 11:23 AM GENETIC SUPERVISOR Emergency [facility] Emergency [address] [place] [address] Jake Flores MD [address] [place] [address] Abdominal pain, right upper quadrant Discharge Disposition: [...] COVID-19? No / Unsure 09/17/2020 9:27 AM GENETIC SUPERVISOR documented as of this encounter Last Filed Vital Signs Vital Sign Reading Time Taken Comments Blood Pressure 146/76 09/17/2020 11:22 AM GENETIC SUPERVISOR Pulse 80 09/17/2020 11:22 AM GENETIC SUPERVISOR Temperature 36.2 ??C (97.2 ??F) 09/17/2020 9:27 AM CS T Respiratory Rate 16 09/17/2020 11:22 AM GENETIC SUPERVISOR Oxygen Saturation 98% 09/17/2020 11:22 AM GENETIC SUPERVISOR Inhaled Oxygen Concentration - - Weight 102.1 kg (225 lb) 09/17/2020 9:27 AM GENETIC SUPERVISOR Height 175.3 cm (5' 9 ) 09/17/2020 9:27 AM GENETIC SUPERVISOR Body Mass Index 33.23 09/17/2020 9:27 AM GENETIC SUPERVISOR documented in this encounter Discharge Instructions * Discharge Instructions* Jake Flores - 09/17/2020 11:11 AM GENETIC SUPERVISOR Images from the original note were not [...] solidfoods again, start with small amounts of seuq-ev-wcigef, low- fat foods. These include apple sauce, [...] stomach acid. ?? Don't use aspirin or lzay-tga-afuqgjl pain and fever medicines, if possible. This includes nonsteroidal anti-inflammatory drugs (NSAIDs). ?? Lose excess weight. ?? Finish eating at least 2 hours before you go to bed or lie down. ?? Raise the head of your bed. Brenda mcguire reviewed this educational content on 02/05/2019 ?? [phone] [employer]. [address] [place] [address]. All rights reserved. This information is not intended as a substitute for professional medical care. Always follow your healthcare professional's instructions. TIC SUPERVISOR documented in this encounter Medications at Time [...] noted. SL D/C'ed with Sebas cath intact. TIC SUPERVISOR * Faiza Campos RN - 09/17/2020 10:47 AM CST Patient returned from ct. No distress noted. TIC SUPERVISOR * Faiza Campos RN - 09/17/2020 10:08 [...] understanding that RN will complete hourly rounding. TIC SUPERVISOR * Jake Flores - 09/17/2020 9:49 AM [...] file. Allergies Allergen Reactions ??? Guaifenesin Dac [Mhqsoslqjsvpexa-Thbauqo-Li] Itching ??? Sulfa Antibiotics Unknown No past [...] file Gets together: Not on file Attends episcopal service: Not on file Active member of [...] US ABDOMEN LIMITED LEVEL 3 THREE ORGAN [id number] (No Result on File) MDM Coding DIFFERENTIAL DIAGNOSIS INCLUDES BILIARY DYSKINESIA, ACUTE CHOLECYSTITIS, ELECTROLYTE ABNORMALITY, ANEMIA, PANCREATITIS, UNLIKELY BOWEL PERFORATION, UNLIKELY BOWEL OBSTRUCTION, IBS, IBD, DEHYDRATION, GASTROENTERITIS, PEPTIC ULCER DISEASE, GASTRITIS, ETCETERA 11:10 AM GENETIC SUPERVISOR FEELS BETTER. Admission on 09/17/2020 Component Date [...] Us Abdomen Limited Level 3 Three Organ [id number] Result Date: 09/17/2020 IMPRESSION: Cholelithiasis with positive [...] follow up. DX: RIGHT UPPER QUADRANT PAIN TIC SUPERVISOR * Sammie Mclaughlin RN - 09/17/2020 9:30 AM CST Patient to triage with complaints of right upper quadrant abdominal pain for over a week. Patient reports nausea, but denies vomiting. Patient denies diarrhea. Patient states that he has been unable to eat, so he has nothing to throw up. Patient denies fevers, and is afebrile in triage. Patient denies urinary symptoms. TIC SUPERVISOR documented in this encounter Plan of Treatment Not on file documented as of this encounter Procedures Procedure Name Priority Date/Time Associated Diagnosis Comments US ABDOMEN LIMITED LEVEL 3 THREE ORGAN STAT 09/17/2020 10:46 AM GENETIC SUPERVISOR EXTRA TUBES STAT 09/17/2020 9:57 AM GENETIC SUPERVISOR WAYNE KEITH HEPARIN/SST TOP TUBE STAT 09/17/2020 9:57 AM GENETIC SUPERVISOR GOLD TOP TUBE STAT 09/17/2020 9:57 AM GENETIC SUPERVISOR BLUE TOP TUBE STAT 09/17/2020 9:57 AM GENETIC SUPERVISOR LAVENDER TOP TUBE STAT 09/17/2020 9:5 7 AM GENETIC SUPERVISOR CBC WITH AUTO DIFFERENTIAL STAT 09/17/2020 9:57 AM GENETIC SUPERVISOR LIPASE STAT 09/17/2020 9:57 AM GENETIC SUPERVISOR CMP (COMPREHENSIVE METABOLIC PANEL) STAT 09/17/2020 9:57 AM GENETIC SUPERVISOR COMPLETE BLOOD COUNT (CBC) WITH DIFF STAT 09/17/2020 9:57 AM GENETIC SUPERVISOR documented in this encounter Results * US ABDOMEN LIMITED LEVEL 3 THREE ORGAN [id number] (09/17/2020 10:46 AM GENETIC SUPERVISOR) Anatomical Region Laterality Modality Abdomen N/A Ultrasound 09/17/2020 10:5 2 AM GENETIC SUPERVISOR Impressions 09/17/2020 10:55 AM GENETIC SUPERVISOR IMPRESSION: ??Cholelithiasis with positive sonographic Cooper's sign suspicious for acute cholecystitis. ??However there is no gallbladder wall thickening or pericholecystic fluid. ??If further assessment were needed, HIDA scan could be considered. Narrative 09/17/2020 10:55 AM GENETIC SUPERVISOR EXAM DESCRIPTION: ?? US ABDOMEN LIMITED LEVEL [...] AM T: ??09/17/2020 10:52 AM Report ID: [id number] Reading Location: ??[id number] Procedure Note Nael Rosa Jr., MD - [...] Nael Rosa M.D. CH: MELVIN Report ID: [id number] Reading Location: [place] [address] IMPRESSION: Cholelithiasis with positive sonographic Cooper's sign suspicious for acute cholecystitis. However there is no gallbladder wall thickening or pericholecystic fluid. If further assessment were needed, HIDA scan could be considered. Jake Flores MD IMG US ORDERABLES Final Re sult * WAYNE KEITH HEPARIN/SST TOP TUBE (09/17/2020 9:57 AM GENETIC SUPERVISOR) Blood Venipuncture / Unknown 09/17/2020 9:57 AM GENETIC SUPERVISOR 09/17/2020 10:26 AM GENETIC SUPERVISOR Jake Flores MD HEMATOLOGY ORDERABLES Georgette l Result Performing Organization Address City/[facility]/ZIP Co de Phone Number [facility] [address] [place] [address] * Lavender Top Tube (09/17/2020 9:57 AM GENETIC SUPERVISOR) Blood Venipuncture / Unknown 09/17/2020 9:57 AM GENETIC SUPERVISOR 09/17/2020 10:26 AM GENETIC SUPERVISOR Jake Flores MD HEMATOLOGY ORDERABLES Georgette l Result [facility] [address] [place] [address] * Gold Top Tube (09/17/2020 9:57 AM GENETIC SUPERVISOR) Blood Venipuncture / Unknown 09/17/2020 9:57 AM GENETIC SUPERVISOR 09/17/2020 10:26 AM GENETIC SUPERVISOR Jake Flores MD CHEMISTRY ORDERABLES Final Result Performing Organization Address City/[facility]/ZIP Co de Phone Number [facility] [address] [place] [address] * Blue Top Tube (09/17/2020 9:57 AM GENETIC SUPERVISOR) Blood Venipuncture / Unknown 09/17/2020 9:57 AM GENETIC SUPERVISOR 09/17/2020 10:26 AM GENETIC SUPERVISOR Jake Flores MD HEMATOLOGY ORDERABLES Georgette l Result Performing Organization Address City/[facility] Co de Phone Number [facility] [address] [place] [address] * CBC with Auto Differential (09/17/2020 9:57 AM GENETIC SUPERVISOR) WBC 6.72 4.00 - 12.00 10(3)/mcL 09/17/2020 10:11 AM GENETIC SUPERVISOR [facility] RBC 5.02 4.40 - 5.80 10(6)/mcL 09/17/2020 10:11 AM GENETIC SUPERVISOR [facility] HEMOGLOBIN (HGB) 15.5 13.0 - 16.5 g/dL 09/17/2020 10:11 AM GENETIC SUPERVISOR [facility] HEMATOCRIT (HCT) 47.0 38.0 - 50.0 % 09/17/2020 10:11 AM GENETIC SUPERVISOR [facility] MCV 93.6 82.0 - 96.0 fL 09/17/2020 10:11 AM GENETIC SUPERVISOR [facility] MCH 30.9 26.0 - 32.0 pg 09/17/2020 10:11 AM [facility] MCHC 33.0 31.0 - 36.0 g/dL 09/17/2020 10:11 AM [facility] PLATELET COUNT 345 140 - 440 10(3)/[facility] 09/17/2020 10:11 AM [facility] RDW 12.0 11.8 - 15.5 % 09/17/2020 10:11 AM [facility] MPV 10.9 8.0 - 12.6 fL 09/17/2020 10:11 AM [facility] NEUTROPHILS 56.8 40.0 - 68.0 % 09/17/2020 10:11 AM [facility] LYMPHOCYTES 31.3 19.0 - 49.0 % 09/17/2020 10:11 AM [facility] MONOCYTES 7.6 3.0 - 13.0 % 09/17/2020 10:11 AM [facility] EOSINOPHILS 3.3 0.0 - 8.0 % 09/17/2020 10:11 AM [facility] BASOPHILS 1.0 0.0 - 1.0 % 09/17/2020 10:11 AM [facility] ABSOLUTE NEUTROPHILS 3.82 1.40 - 5.30 10(3)/[facility] 09/17/2020 10:11 AM [facility] ABSOLUTE LYMPHOCYTES 2.10 0.90 - 3.30 10(3)/[facility] 09/17/2020 10:11 AM [facility] ABSOLUTE MONOCYTES 0.51 0.10 - 0.90 10(3)/[facility] 09/17/2020 10:11 AM [facility] ABSOLUTE EOSINOPHIL 0.22 0.00 - 0.50 10(3)/[facility] 09/17/2020 10:11 AM [facility] ABSOLUTE BASOPHILS 0.07 0.00 - 0.10 10(3)/[facility] 09/17/2020 10:11 AM [facility] NRBC PER 100 WBC 0 09/17/20 20 10:11 AM [facility] Blood Venipuncture / Unknown 09/17/2020 9:57 AM GENETIC SUPERVISOR 09/17/2020 10:09 AM GENETIC SUPERVISOR us Jake Flores MD HEMATOLOGY ORDERABLES Georgette l Result [facility] [address] [place] [address] * Lipase [id number] (09/17/2020 9:57 AM GENETIC SUPERVISOR) LIPASE 21.2 13 - 60 U/L 09/17/2020 10:36 AM GENETIC SUPERVISOR [facility] Blood Venipuncture / Unknown 09/17/2020 9:57 AM GENETIC SUPERVISOR 09/17/2020 10:09 AM GENETIC SUPERVISOR us Jake Flores MD CHEMISTRY ORDERABLES Final Result Performing Organization Address [facility] Co de Phone Number [facility] [address] [place] [address] * CMP (Comprehensive Metabolic Panel) (09/17/2020 9:57 AM GENETIC SUPERVISOR) SODIUM 137 136 - 144 mmol/L 09/17/2020 10:36 AM GENETIC SUPERVISOR [facility] POTASSIUM 4.1 3.5 - 5.1 mmol/L 09/17/2020 10:36 AM GENETIC SUPERVISOR [facility] CHLORIDE 101 100 - 110 mmol/L 09/17/2020 10:36 AM GENETIC SUPERVISOR [facility] CO2, VENOUS 27 22 - 32 mmol/L 09/17/2020 10:36 AM GENETIC SUPERVISOR [facility] ANION GAP 13.1 8.0 - 20.0 mmol/L 09/17/2020 10:36 AM GENETIC SUPERVISOR [facility] GLUCOSE 99 70 - 99 mg/dL 09/17/2020 10:36 AM GENETIC SUPERVISOR [facility] BUN 13 6 - 20 mg/dL 09/17/2020 10:36 AM [facility] CREATININE, BLOOD 0.91 0.80 - 1.30 mg/dL 09/17/2020 10:36 AM [facility] BUN/CREATININE RATIO 14 12 - 20 ratio 09/17/2020 10:36 AM [facility] TOTAL PROTEIN 7.3 6.0 - 8.3 g/dL 09/17/2020 10:36 AM [facility] ALBUMIN 4.7 3.5 - 5.2 g/dL 09/17/2020 10:36 AM [facility] Comment: The colormetric methods used for the determination of Albumin may lead to falsely elevated test results in patients suffering from renal failure or insufficiency due to interference with other proteins. A/G RATIO 1.8 1.0 - 2.0 09/17/2020 10:36 AM [facility] CALCIUM 9.3 8.9 - 10.3 mg/dL 09/17/2020 10:36 AM [facility] T BILI 0.4 <=1.2 mg/dL 09/17/2020 10:36 AM [facility] SGOT (AST) 18 <=40 U/L 09/17/2020 10:36 AM [facility] SGPT (ALT) 18 <=41 U/L 09/17/2020 10:36 AM [facility] ALKALINE PHOSPHATASE 59 40 - 130 U/L 09/17/2020 10:36 AM [facility] GFR, EST. NONAFRICAN >60 >=60 09/17/2020 10:36 AM [facility] GFR, EST. >60 >=60 020 10:36 AM [facility] Comment: Creatinine Clearance is the preferred criteria for selecting drug dose adjustments in renally impaired patients. ??The GFR is provided as additional pertinent clinical information. GFR is reported in mL/min/1.73 sq m. Blood Venipuncture / Unknown 09/17/2020 9:57 AM GENETIC SUPERVISOR 09/17/2020 10:09 AM GENETIC SUPERVISOR us Jake Flores MD CHEMISTRY ORDERABLES Final Result [facility] [address] [facility] [place] [address] documented in this encounter Visit Diagnoses Diagnosis Abdominal pain, right upper quadrant- Primary documented in this encounter Administered Medications Inactive Administered Medications - up to 3 most recent administrations Medication Order MAR Action Action Date Dose Rate Site ketorolac (TORADOL) injection 15 mg 15 mg, Intravenous, ONCE, 1 dose, On Tue09/17/20 at 1030 Given 09/17/2020 10:07 AM GENETIC SUPERVISOR 15 mg ondansetron (ZOFRAN) injection 4 mg 4 mg, Intravenous, ONCE, 1 dose, On Tue09/17/20 at 1030 Given 09/17/2020 10:07 AM GENETIC SUPERVISOR 4 mg documented in this encounter Active and Recently Administered Medications Times are shown in GENETIC SUPERVISOR. Scheduled Medication Order 09/15/2020 09/16/2020 09/17/2020 ketorolac (TORADOL) injection 15 mg (COMPLETED) 15 mg, Intravenous, ONCE, 1 dose, On Tue09/17/20 at 1030 1007 (Given - Provid er: Faiza Campos RN) ondansetron (ZOFRAN) injection 4 mg (COMPLETED) 4 mg, Intravenous, ONCE, 1 dose, On Tue09/17/20 at 1030 1007 (Given - Provid er: Faiza Campos RN) documented in this encounter Care Teams Starch And Prosize Mixer Relationship Specialty Start Date End Date Sita Regan APRN, [place] [address] [place] [address] PCP - General Family Medicine 12/22/18 documented as of this encounter
--- OUTSIDE RECORDS SUMMARY | 2024-11-17 11:03 | XMS_ITS | Encounter Summary ---
Author Organization [facility] Address [address] [place] [address] Care Team Providers Care Roll Former Name Role Phone Sita Regan SPRING COILING MACHINE SETTER Primary Care Provider Reason for Visit * Reason Comments Post-op Gallbladder 12/01/2009 Encounter Details Date Type Department Care Team (Late st Contact Info) Description 12/15/2020 1:30 PM YEAST MAKER Office Visit [facility] [address] [place] [phone] EyersMalena NP [address] [facility] [address] [place] [address] Biliary dyskinesia (Primary Dx) Social History Tobacco Use Types Packs/Day Years Used Date Smoking Tobacco: Every Day Vaping Alcohol Use Standard Drinks/Week Comments Not Currently 0 (1 standard drink = 0.6 oz pur e alcohol) Sex and Gender Information Value Date Recorded Sex Assigned at Not on file Legal Sex Male 11:53 PM YEAST MAKER Gender Identity Not on file Sexual Orientation Not on file documented as of this encounter Last Filed Vital Signs Vital Sign Reading Time Taken Comments Blood Pressure 124/79 12/15/2020 1:16 PM YEAST MAKER Pulse 65 12/15/2020 1:16 PM YEAST MAKER Temperature 36.5 ??C (97.7 ??F) 12/15/2020 1:16 PM CS T Respiratory Rate - - Oxygen Saturation - - Inhaled Oxygen Concentration - - Weight 103.6 kg (228 lb 4.8 oz) 12/15/2020 1:16 PM YEAST MAKER Height 172.7 cm (5' 8 ) 12/15/2020 1:16 PM YEAST MAKER Body Mass Index 34.71 12/15/2020 1:16 PM YEAST MAKER documented in this encounter Progress Notes * [...] 2 weeks. 4. Follow up: as needed T MAKER documented in this encounter Plan of Treatment Not on file documented as of this encounter Visit Diagnoses Diagnosis Biliary dyskinesia- Primary Other specified disorder of gallbladder documented in this encounter Care Teams Roll Former Relationship Specialty Start Date End Date Sita Regan NP [address] [place] [address] PCP - General Nurse Practitioner 10/23/20 documented as of this encounter
--- OUTSIDE RECORDS SUMMARY | 2024-11-17 11:03 | XMS_ITS | Continuity of Care Document ---
Author Organization [facility] Address [address] [place] [address] Care Team Providers Care Undercutter Operator Name Role Phone SITA FREGOSO Primary Care Provider Unavailabl e Assessment No assessment recorded. Plan of Treatment Reminders Order Date Submit Date Provider Last Modified By Organization Details Last Modified Time Details Appointments ANY 15 025 02:00PM Eric Little MD Not available Not available Not available Lab None record ed. Referral None record ed. Procedures None record ed. Surgeries None record ed. Imaging None record ed. Medication Orders neomyc in-eladio ymyxin -hydro kanwal 3.5 mg-10, 000 unit/m L-1 % ear drops, susp 024 11/02/20 24 [facility] #[id number], [address] [place], [address], 11/02/2024 12:15:54 Patient TargetsNo targets recorded. Patient Instructions Encounter Date Encounter Id Patient Instructions Last Modified By Organization Details Last Modified Time 11/02/2024 [id number] f/u with pcp nsuthan Not available 13:51:04 Reason for Referral None Reported. Problems Name Problem SNOMED Code Status Onset Date Resolution Date Notes Provider Name and Address Organization Details Recorded Time Obese 271889666 Active 2018 Sita Fregoso APN, FNP-C Attn: Lydia sin,[address] [facility], [place], [address], [facility] 4 10:05:38 Foot pain 54224698 Active 2018 Sita Fregoso APN, FNP-C Attn: Lydia sin[address] [facility], [place], [address], [facility] 4 10:05:38 Tobacco dependence syndrome 32873375 Active 2018 Sita Fregoso APN, BENEFITS COORDINATOR-C Attn: Lydia sin,[address] [facility], [place], [address], [facility] 4 10:05:38 Generalized anxiety disorder 12100982 Active 2018 Sita Fregoso APN, BENEFITS COORDINATOR-C Attn: Lydia sin,[address] [facility], [place], [address], [facility] 4 10:05:38 Posterior rhinorrhea 87979904 Active 2019 Sita Fregoso APN, BENEFITS COORDINATOR-C Attn: Lydia sin,[address] [facility], [place], [address], [facility] 4 10:05:38 Problem Notes None recorded. Procedures Surgical History Date Name Laterality Status Provider Name and Address Organization Details Recorded Time 11/07/19 20 Cholecystectomy completed EFRAIN Boyd [facility] 05/17/2024 09:52:38 Appendectomy completed Ban Small MA [facility] 12/12/2018 10:11:05 Imaging Results None recorded. Procedure Notes None recorded. Medical Equipment None Reported. Allergies Allergen ID Allergen Name Allergen Category Reaction Reaction Severity Criticality Documentation Date Start Date Code Code System Note Provider Name and Address Organization Details Recorded Time 700657 Substance with sulfonami de structure and antibacte rial mechanism of action (substanc e) medicatio n Not available Not available Not available 12/12/2018 45015 8003 SNOMED BANDAR [place], [facility] 9 10:10:27 [id number] Flonase medicatio n Not available Not available Not available 08/14/2019 72056 RxNorm foggy head EFRAIN Boyd [facility] 4 09:48:30 Medications Name Sig Start Date [...] Not Available Vitals Date Recorded Body height Body mass index (BMI) Body weight Body temperature Oxygen saturation Oxygen saturation in Arterial blood by Pulse oximetry Heart rate Systolic blood pressure Diastolic blood pressure Provider Name and Address Organization Details Last Updated DateTime 4 172.72 cm 36.2 kg/m2 498909. 27 g 97.5 [degF] 96 % 96 % 67 /min 133 mm[Hg] 80 mm[Hg] Shawna Wheat [place] [facility] 11:53:42 Social History Question Answer Notes LastModified by Organizat ion Details LastModified Time Tobacco Smoking Status Former Smoker andres Fregoso APN, BENEFITS COORDINATOR-C Attn: Accounting [facility], [place], [address], [place] [facility] 12/12/2018 10:23:32 Do You Have An Advance [...] Anxious, Or Unable To Sleep At Night)? [id number] Information not available 05/17/2024 Do You Use Any Illicit Or Recreational Drugs? Yes Marijuanna Information not available 05/17/2024 Do You Use [...] Response Coronary Artery Disease N Other N High Blood Pressure N Atrial Fibrillation N Kidney or Bladder Problems N Thyroid Problems N GI Problems N Depression N COPD N Blood Clots N Skin Problems N Anemia N Heart Attack ([place]) N Anxiety Disorder N Diabetes N Muscle, [...] Hepatitis N Liver Disease N Headaches N Heart Failure N Osteoporosis N Immunizations Vaccine Type Date Status Note Provider Nam e and Address Organization Details Recorded Time Influenza, split virus, trivalent, preservative 5 completed Sita Fregoso APN, BENEFITS COORDINATOR-C Attn: Accounting[address] [place], [address], [facility] 05/17/2024 10:05:16 Tdap 9 completed Not Available [facility] 11/24/2019 02:37:04 Influenza, split virus, quadrivalent, preservative 9 completed Not Available [facility] 11/24/2019 02:39:49 Past Encounters Encounter ID Performer Location Encounter Start Date Encounter Closed Date Diagnosis/Indication Diagnosis SNOMED-CT Code Diagnosis ICD10 Code Diagnosis Note [id number] Ilda Ramirez MD [facility] (Adult Med) [address] [place] [address] 11/02/2024 11:43:57 11/05/2024 09:43:03 Otitis externa of right ear 8732752388 325558 H60.91 vs chronic serous otitis media -pt has apt to see Dr.Fernand kaminski-pt has completed oral antibiotic -avoid q tip Health Concerns Section Related Observation LastModified by Organization Detai ls LastModified Time None Recorded Concern Status LastModified by Organization Details LastModified Time None Recorded Payers Encounter Date Sequence Insurance Name Policy Number Policy [place] Covered Member ID [place] Member ID Guarantor Name 11/02/2024 1 [facility] (PP[facility] [id number] Godfrey Bowser [id number] Godfrey Bowser Notes Date Note Type Note Provider Name and Address Organization Details Recorded Time 11/02/2024 text/html EaracheReported bypatient.Location:[facility] Quality:tension (and itchy) Severity:intermittent Duration:symptoms lasting over 2 weeks Context:no sick contacts Modifying Factors:does not hurt to lie on, or pull on ear; does not hurt to chew Associated Symptoms:no hearing loss; no nose/sinus problems;popping noise in the ears Ilda Ramirez MD Attn: Accounting[address] [place], [address], [facility] 11/02/2024 13:51:48
--- OUTSIDE RECORDS SUMMARY | 2024-11-17 11:03 | XMS_ITS | Referral Summary ---
Author Organization [facility] Medical Office Building B Address [address] [place] [address] Care Team Providers Care Restaurant Mgr Name Role Phone Sita Regan NP Primary Care Provider Allergies Active Allergy Reactions Criticality Noted Date Comments Fluticasone Propionate Headache Low 10/28/2020 Wddixwasmkmwzxa-Loqspwu-Vf Itching Low 9 Sulfa (Sulfonamide Antibiotics) Unknown [...] 10/28/2020 Assessment & Plan (10/28/2020 12:23 PM DURALUMIN METALWORKER): hida scan shows EF at 0%. Ultrasound demonstrated gallstones as well. The procedure along with the risks and benefits and post operative period were discussed with the patient to which he agrees. Will plan for laparoscopic cholecystectomy. Discussed low fat diet. Dermatofibroma 10/28/2020 Assessment & Plan (10/28/2020 12:22 PM DURALUMIN METALWORKER): We discussed removal x3, patient states he [...] on file Legal Sex Male 11:53 PM DURALUMIN METALWORKER Gender Identity Not on file Sexual Orientation Not on file Last Filed Vital Signs Vital Sign Reading Time Taken Comments Blood Pressure 124/79 12/15/2020 1:16 PM DURALUMIN METALWORKER Pulse 65 12/15/2020 1:16 PM DURALUMIN METALWORKER Temperature 36.5 ??C (97.7 ??F) 12/15/2020 1:16 PM CS T Respiratory Rate 20 12/01/2020 2:29 PM DURALUMIN METALWORKER Oxygen Saturation 97% 12/01/2020 2:29 PM DURALUMIN METALWORKER Inhaled Oxygen Concentration - - Weight 103.6 kg (228 lb 4.8 oz) 12/15/2020 1:16 PM DURALUMIN METALWORKER Height 172.7 cm (5' 8 ) 12/15/2020 1:16 PM DURALUMIN METALWORKER Body Mass Index 34.71 12/15/2020 1:16 PM DURALUMIN METALWORKER Plan of Treatment Not on file Insurance Care Teams Restaurant Mgr Relationship Specialty Start Date End Date Sita Regan NP [address] [place] [address] PCP - General Nurse Practitioner 10/23/20
--- OUTSIDE RECORDS SUMMARY | 2024-11-17 11:03 | XMS_ITS | Patient Health Summary ---
Author Organization [facility] Address [address] [place] [address] Care Team Providers Care Brusher Tender Name Role Phone Unavailable Primary Care Provider Unavailabl e Note from [facility],non-owned Affiliates and Associated Physician Practices is amultiple site organization consisting of ambulatory clinics and hospital sitesin [place], [place], [place] and [place]. This disclosure is being madepursuant to the Care Everywhere program and may not contain all information available regarding this patient. Last updated 18.[facility] Social History Tobacco Use Types Packs/Day Years Used Date Smoking Tobacco: Never Assessed Sex and Gender Information Value Date Recorded Sex Assigned at Not on file Gender Identity Not on file Sexual Orientation Not on file Procedures * GROSS + MICRO EXAM(Performed 02/05/1998) Results * GROSS + MICRO EXAM (02/05/1998 11:52 AM MONOTYPE SETTER) Result CASE NUMBER [id number] Comment: ORDERING [...] (GROSS ONLY) CODE 1 CPT ??Level I ??34226 RELEASED BY ?CHICHI Witt MISCELLANEOUS SAMPLES / Unknown 02/05/1998 11:52 AM MONOTYPE SETTER 02/05/1998 11:52 AM MONOTYPE SETTER Historical Provider LAB - PATHOLOGY/C YTOLOGY ORDERABLES
--- OUTSIDE RECORDS SUMMARY | 2024-11-17 11:03 | XMS_ITS | Encounter Summary ---
Author Organization [facility] Address [address] [place] [address]. [place], [place] [address] [place] [address] Care Team Providers Care Bean Snipper Name Role Phone Rupert Rodriguez MD Primary Care Provider Unavailable Encounter Details Date Type Department Care Team (Late st Contact Info) Description 06/28/2008 Emergency [facility] [place] [address] Rupert Rodriguez MD Social History Tobacco Use [...] on filedocumented in this encounter Care Teams Bean Snipper Relationship Specialty Start Date End Date Rupert Rodriguez MD PCP - General 09/06/11 documented as of this encounter
--- OUTSIDE RECORDS SUMMARY | 2024-11-17 11:03 | XMS_ITS | Encounter Summary ---
Author Organization [facility] Address [address] [place] [place] [address] Phone Care Team Providers Care Facilities Maintenance Technician Name Role Phone Sita Regan APRN, CNP Primary Care Provider [phone] Reason for Referral * Radiology Services (Routine) - Closed Specialty Diagnoses / Procedures Referred By Contac t Referred To Contact Radiology Diagnoses Right upper quadrant pain Procedures NM HEPATOBILIARY WITH PHARM Sita Regan APRN, CNP [address] [place] [address] Phone: tel: fax: Referral ID Status Reason Start Date Expiration Date Visits Re quested Visits Authorized [id number] Closed 09/26/2020 1 1 REWMAN Reason for Visit * Radiology Services (Routine) - Closed Specialty Diagnoses / Procedures Referred By Contac t Referred To Contact Radiology Diagnoses Right upper quadrant pain Procedures NM HEPATOBILIARY WITH PHARM Sita Regan APRN, CNP [address] [place] [address] Phone: tel: fax: Referral ID Status Reason Start Date Expiration Date Visits Re quested Visits Authorized [id number] Closed 09/26/2020 1 1 Encounter Details Date Type Department Care Team (Latest Contact Info) Description 10/14/2020 7:58 AM AIRCREWMAN - 10/14/2020 11:59 PM AIRCREWMAN Hospital Encounter [facility] Nuclear Medicine [address] [place] [address] Sita Regan APRN, CNP [address] [place] [address] Discharge Disposition: Discharged to home or Selfcare [...] COVID-19? No / Unsure 10/14/2020 7:48 AM AIRCREWMAN documented as of this encounter Last Filed Vital Signs Vital Sign Reading Time Taken Comments Blood Pressure - - Pulse - - Temperature - - Respiratory Rate - - Oxygen Saturation - - Inhaled Oxygen Concentration - - Weight 102.1 kg (225 lb) 10/14/2020 8:03 AM AIRCREWMAN Height 175.3 cm (5' 9 ) 10/14/2020 8:03 AM AIRCREWMAN Body Mass Index 33.23 10/14/2020 8:03 AM AIRCREWMAN documented in this encounter Medications at Time of Discharge ibuprofen (MOTRIN) 800 MG Tablet Take 1 Tab by mouth every 8 hours. 30 Tab 09/17/2020 documented as of this encounter Plan of Treatment Not on file documented as of this encounter Procedures Procedure Name Priority Date/Time Associated Diagnosis Comments NM HEPATOBILIARY WITH PHARM Routine 10/14/2020 9:47 AM AIRCREWMAN Right upper quadrant pain documented in this encounter Results * NM HEPATOBILIARY WITH PHARM (10/14/2020 9:47 AM AIRCREWMAN) Anatomical Region Laterality Modality Abdomen N/A Nuclear Medicine 10/14/2020 10:2 7 AM AIRCREWMAN Impressions 10/14/2020 10:29 AM AIRCREWMAN IMPRESSION: ?? No scintigraphic evidence of cystic duct obstruction. Suboptimal contractile response of the gallbladder to fatty meal stimulation. Differential considerations include biliary dyskinesia and chronic cholecystitis. Narrative 10/14/2020 10:29 AM AIRCREWMAN EXAM DESCRIPTION: ?? NM HEPATOBILIARY WITH PHARM [...] AM T: ??10/14/2020 10:27 AM Report ID: [id number] Reading Location: ??[phone].[facility] Procedure Note Kris Jung MD - 10/14/2020 [...] Krisfaye Jung M.D. JA: MALIK Report ID: [id number] Reading Location: [phone].[facility] IMPRESSION: No scintigraphic evidence of cystic duct [...] 10/14/20 at 0830 Given 10/14/2020 8:30 AM AIRCREWMAN 1 Dose documented in this encounter Care Teams Facilities Maintenance Technician Relationship Specialty Start Date End Date Sita Regan APRN, THALIA [address] [place] [address] PCP - General Family Medicine 12/22/18 documented as of this encounter
--- OUTSIDE RECORDS SUMMARY | 2024-11-17 11:03 | XMS_ITS | Encounter Summary ---
Author Organization [facility] Address [address] [place] [address] Care Team Providers Care Hand I Cutter Name Role Phone JassBroSitamurtaza Pascal NP Primary Care Provider [phone] Encounter Details Date Type Department Care Team (Late st Contact Info) Description 12/05/2020 Telephone [facility] [address] [place] [address] Nkechi Bryan LPN Social History Tobacco Use Types Packs/Day Years Used Date Smoking Tobacco: Every Day Vaping Alcohol Use Standard Drinks/Week Comments Not Currently 0 (1 standard drink = 0.6 oz pur e alcohol) Sex and Gender Information Value Date Recorded Sex Assigned at Not on file Legal Sex Male 11:53 PM IMPORT COORDINATION AND PRODUCTION HEAD Gender Identity Not on file Sexual Orientation Not on file documented as of this encounter Miscellaneous Notes * Telephone Encounter - Nkechi Bryan LPN - 12/05/2020 11:00 AM IMPORT COORDINATION AND PRODUCTION HEAD Phoned pt he said he cannot take the pain medication prescribed after surgery. Informed patient maytake ibuprofen. Pt verbalizes good understanding. ----- Message from Godfrey Bowser sent at 12/05/2020 10:22 AM IMPORT COORDINATION AND PRODUCTION HEAD ----- Regarding: Prescription Question Contact: I was wobdering i had surgery on Tuesday when could i start taking my 800mg ibuprofen again? RT COORDINATION AND PRODUCTION HEAD RT COORDINATION AND PRODUCTION HEAD documented in this encounter Plan of Treatment Not on file documented as of this encounter Visit Diagnoses Not on filedocumented in this encounter Care Teams Hand I Cutter Relationship Specialty Start Date End Date Jass, Sita Pascal NP [address] [place] [address] PCP - General Nurse Practitioner 10/23/20 documented as of this encounter
--- OUTSIDE RECORDS SUMMARY | 2024-11-17 11:04 | XMS_ITS | Encounter Summary ---
Author Organization [facility] Healthcare Address [address] [place] [address] Care Team Providers Care Regional Transportation Manager Name Role Phone JassBroSitamurtaza Pascal MANUFACTURING ENGINEER ASSEMBLY Primary Care Provider Encounter Details Date Type Department Care Team (Late st Contact Info) Description 11/28/2020 8:30 AM FLIGHT TEST ENGINEER Lab [address] [address] Ja Mayo MD [address] [place] [address] Pre-op testing Discharge Disposition: Discharge to home or self care Social History Tobacco Use Types Packs/Day Years Used Date Smoking Tobacco: Every Day Vaping Alcohol Use Standard Drinks/Week Comments Not Currently 0 (1 standard drink = 0.6 oz pur e alcohol) Sex and Gender Information Value Date Recorded Sex Assigned at Not on file Legal Sex Male 11:53 PM FLIGHT TEST ENGINEER Gender Identity Not on file Sexual Orientation Not on file documented as of this encounter Discharge Disposition Disposition Code Departure Means Destination Discharge to home or self care documented in this encounter Plan of Treatment Not on file documented as of this encounter Procedures Procedure Name Priority Date/Time Associated Diagnosis Comments COVID-19 CORONAVIRUS RNA Routine 11/28/2020 8:47 AM FLIGHT TEST ENGINEER Pre-op testing documented in this encounter Results * COVID-19 Coronavirus RNA Nasopharyngeal (11/28/2020 8:47 AM FLIGHT TEST ENGINEER) COVID-19 RNA Not Detected [facility] ([facility]) Comment: Testing performed as a component of [...] [facility] ([facility]) Comment:Testing performed by : [facility], [address] [place] [address], [phone] Employeed in healthcare? No [facility] ([facility]) Comment:Testing performed by : [facility], [address] [place] [address], [phone] status? No [facility] ([facility]) Comment:Testing performed by : [facility], [address] [place] [address], [phone] Group care resident? No [facility] ([facility]) Comment:Testing performed by : [facility], [address] [place] [address], [phone] Hospitalized? No [facility] ([facility]) Comment:Testing performed by : [facility], [address] [facility], [id number] Is patient in ICU? No [facility] ([facility]) Comment:Testing performed by : [facility], [address] [place] [address], [phone] Symptomatic as defined by CDC? No [facility] ([facility]) Comment:Testing performed by : [facility], [address] [place] [address], [phone] Nasopharyngeal 11/28/2020 8: 47 AM FLIGHT TEST ENGINEER 11/28/2020 1:24 PM FLIGHT TEST ENGINEER Narrative [facility] ([facility]) - 11/28/2020 10:17 PM FLIGHT TEST ENGINEER What is the reason for testing?->Screening prior to scheduled procedure or surgery Ja Mayo MD LAB MICROBIOLOGY - GENERAL ORDERABLES Final Result [facility] ([place]) 1 [facility] Department [place] [address] documented in this encounter Visit Diagnoses Diagnosis Pre-op testing Unspecified pre-operative examination documented in this encounter Care Teams Regional Transportation Manager Relationship Specialty Start Date End Date Regan, Sita Pascal NP [address] [place] [address] PCP - General Nurse Practitioner 10/23/20 documented as of this encounter
--- OUTSIDE RECORDS SUMMARY | 2024-11-17 11:04 | XMS_ITS | Encounter Summary ---
Author Organization [facility] Healthcare Address [address] [place] [address] Care Team Providers Care Svp Innovation Partnerships Name Role Phone JassSita Naida PEREZ Primary Care Provider [phone] Encounter Details Date Type Department Care Team (Late st Contact Info) Description 12/01/2020 8:38 AM FRONT DESK MONITOR Anesthesia Event [facility] Operating Room [address] [place] [address] [place] [address] [address] Yvette Phan, [place] [address] HERNANDO GASPAR [address] [place] [address] Anesthesia Record Procedure Summary Procedure Name Responsible [...] 0752; Abdomen; 10/09/24 (Retired LDA, Removed/Completed by Source MDx with LDA Utility); 1213 (Retired LDA, Removed/Completed by Source MDx with LDA Utility) 12/01/20 0752 by Shawna [...] on file Legal Sex Male 11:53 PM FRONT DESK MONITOR Gender Identity Not on file Sexual Orientation Not on file documented as of this encounter OR Notes * Anesthesia Postprocedure Evaluation - Yvette Phan CRNA - 12/01/2020 9:59 AM CST Patient: Godfrey Bowser Procedure Summary Date: 12/01/20 Room / Location: [address] OPERATING ROOM Anesthesia Start: 837 Anesthesia [...] acceptable Pt is: normothermic Nausea/Vomiting status: none T DESK MONITOR * Anesthesia Procedure Notes - Yvette Phan CRNA - 12/01/2020 8:52 AM CSTAssociated Order(s): Airway Airway Patient location: OR Urgency: elective Indications for airway management: anesthesia Difficult airway: no Staff: Supervising provider: Nitesh Armstrong MD Placed by: DEFENSIVE FIRE CONTROL SYSTEMS OPERATOR: Yvette Phan CRNA Emergent airway documentation: [...] with: silk tape Number of attempts: 1 T DESK MONITOR * Anesthesia Preprocedure Evaluation - Flaco Cole [...] Antibiotics) Unknown ??? Fluticasone Propionate Headache ??? Toppfmqxdfymjhp-Cwuebew-Og Itching Med List Status: Nurse Complete Set [...] is Outpatient. Informed Consent: Discussed plan with DEFENSIVE FIRE CONTROL SYSTEMS OPERATOR. Anesthesia plan and risks discussed with [...] and agree to proceed. All questions answered. T DESK MONITOR documented in this encounter Plan of Treatment Not on file documented as of this encounter Procedures Procedure Name Priority Date/Time Associated Diagnosis Comments LA AN ELECTIVE ENDOTRACHEAL AIRWAY Routine 12/01/2020 8:52 AM FRONT DESK MONITOR documented in this encounter Results * LA AN ELECTIVE ENDOTRACHEAL AIRWAY (12/01/2020 8:52 AM FRONT DESK MONITOR) Narrative Yvette Phan CRNA - 12/01/2020 8:52 AM FRONT DESK MONITOR Yvette Phan CRNA ? 12/01/2020 ??8:52 AM Airway Patient location: OR Urgency: elective Indications for airway management: anesthesia Difficult airway: no Staff: Supervising provider: Nitesh Armstrong MD Placed by: DEFENSIVE FIRE CONTROL SYSTEMS OPERATOR: Yvette Phan CRNA Emergent airway documentation: [...] 0855, Anesthesia Intra-op Given 12/01/2020 8:55 AM FRONT DESK MONITOR 10 mg esmoloL (BREVIBLOC) injection Administer over 1 Minutes, As needed, Starting on Tue12/01/20 at 0842, Anesthesia Intra-op Given 12/01/2020 8:42 AM FRONT DESK MONITOR 30 mg fentaNYL (SUBLIMAZE) preservative free injection intravenous, As needed, Starting on Tue12/01/20 at 0902, Anesthesia Intra-op Given 12/01/2020 9:02 AM FRONT DESK MONITOR 50 mcg Lactated Ringer's (LR) infusion 30 mL/hr, intravenous, Continuous, Starting on Tue12/01/20 at 0815, Pre-Op Rate/Dose Verify 12/01/2020 8:38 AM FRONT DESK MONITOR New Bag 12/01/2020 8:01 AM FRONT DESK MONITOR 30 mL/hr 30 mL/hr lidocaine (cardiac) (XYLOCAINE) preservative free injection intravenous, As needed, Starting on Tue12/01/20 at 0842, Anesthesia Intra-op, Indications: Ventricular ArrhythmiasIndications:Ventricular Arrhythmias Given 12/01/2020 8:42 AM FRONT DESK MONITOR 100 mg midazolam (VERSED) 1 mg/mL preservative free injection intravenous, Administer over 2 Minutes, As needed, Starting on Tue12/01/20 at 0838, Anesthesia Intra-op Given 12/01/2020 8:38 AM FRONT DESK MONITOR 2 mg ondansetron (ZOFRAN) injection intravenous, Administer over 2 Minutes, As needed, Starting on Tue12/01/20 at 0855, Anesthesia Intra-op Given 12/01/2020 8:55 AM FRONT DESK MONITOR 4 mg propofoL (DIPRIVAN) IV intravenous, As needed, Starting on Tue12/01/20 at 0842, Anesthesia Intra-op Given 12/01/2020 8:42 AM FRONT DESK MONITOR 200 mg rocuronium (ZEMURON) injection intravenous, As needed, Starting on Tue12/01/20 at 0930, Anesthesia Intra-op Given 12/01/2020 9:30 AM FRONT DESK MONITOR 20 mg Given 12/01/2020 9:00 AM FRONT DESK MONITOR 30 mg succinylcholine (ANECTINE) injection intravenous, As needed, Starting on Tue12/01/20 at 0842, Anesthesia Intra-op Given 12/01/2020 8:42 AM FRONT DESK MONITOR 160 mg sugammadex (BRIDION) 100 mg/mL intravenous solution As needed, Starting on Tue12/01/20 at 0944, Anesthesia Intra-op Given 12/01/2020 9:44 AM FRONT DESK MONITOR 400 mg documented in this encounter Care Teams Svp Innovation Partnerships Relationship Specialty Start Date End Date Sita Regan NP [address] [place] [address] PCP - General Nurse Practitioner 10/23/20 documented as of this encounter
--- OUTSIDE RECORDS SUMMARY | 2024-11-17 11:04 | XMS_ITS | Encounter Summary ---
Author Organization [facility] Healthcare Address [address] [place] [address] Care Team Providers Care Tongue And Groove Machine Setter Name Role Phone Unavailable Primary Care Provider Unavailabl e Encounter Details Date Type Department Care Team (Late st Contact Info) Description 10/05/2017 11:42 PM CUSTODIAL SERVICES MANAGER - 10/06/2017 4:36 AM CUSTODIAL SERVICES MANAGER Emergency [facility] Emergency Department [address] [place] [address] Anisha Lewis MD [address] [place] [address] [id number] [place] [address] Discharge Disposition: Discharge to home or self care Social History Tobacco Use Types Packs/Day Years Used Date Smoking Tobacco: Never Assessed Sex and Gender Information Value Date Recorded Sex Assigned at Not on file Legal Sex Male 11:53 PM CUSTODIAL SERVICES MANAGER Gender Identity Not on file Sexual Orientation Not on file documented as of this encounter Discharge Disposition Disposition Code Departure Means Destination Discharge to home or self care documented in this encounter Plan of Treatment Not on file documented as of this encounter Procedures Procedure Name Priority Date/Time Associated Diagnosis Comments INFLUENZA A/B ANTIGENS, RAPID GEN LAB STAT 10/06/2017 2:30 AM CUSTODIAL SERVICES MANAGER DISCHARGE LABORATORY CUMULATIVE REPORT 10/06/2017 12:00 AM CUSTODIAL SERVICES MANAGER documented in this encounter Results * Influenza A/B antigens, rapid (10/06/2017 2:30 AM CUSTODIAL SERVICES MANAGER) Influenza A Ag Negative Negative [facility] Comment: Interpretive Data This test has an estimated 70% sensitivity and 90% specificity. Current interpretive data was last revised on 2016 Influenza B Ag Negative Negative [facility] Comment: Interpretive Data This test has an estimated 70% sensitivity and 90% specificity. Current interpretive data was last revised on 2016 Nasopharyngeal 10/06/2017 2: 30 AM CUSTODIAL SERVICES MANAGER 10/06/2017 2:48 AM CUSTODIAL SERVICES MANAGER Narrative [facility] - 10/06/2017 3:04 AM CUSTODIAL SERVICES MANAGER us Notinfile Unknown LAB BODY FLUIDS AND STOOLS ORD ERABLES Final Result [facility] [id number] [address] [place] [address] * DISCHARGE LABORATORY CUMULATIVE REPORT (10/06/2017 12:00 AM CUSTODIAL SERVICES MANAGER) Narrative 10/06/2017 12:00 AM CUSTODIAL SERVICES MANAGER Ordered by an unspecified provider. us Historical Provider LAB BLOOD ORDERABLES Georgette l Result documented in this encounter Visit Diagnoses Not on filedocumented in this encounter
--- OUTSIDE RECORDS SUMMARY | 2024-11-17 11:04 | XMS_ITS | Encounter Summary ---
Author Organization [facility] Healthcare Address [address] [place] [address] Care Team Providers Care Hi Lo Driver Name Role Phone Jass Sita Pascal NP Primary Care Provider Encounter Details Date Type Department Care Team (Late st Contact Info) Description 12/01/2020 9:00 AM JUNIOR ACCOUNT EXECUTIVE - 12/01/2020 10:30 AM JUNIOR ACCOUNT EXECUTIVE Surgery [facility] Operating Room 1 [place] [address] Ja Mayo MD [address] [place] [address] LAPAROSCOPIC CHOLECYSTECTOMY Surgery Details Date/Time Status Location OR Service Patient Class Case Cl ass Case Type Trauma Case? 12/01/2020 9:00 AM Posted [facility] OPERATING ROOM OR General Surgery Outpatient Elective Panel 1 Procedure LRB Anes Op Region Wound Class Comments LAPAROSCOPIC CHOLECYSTECTOMY N/A General Abdomen Class II - Clean Contaminated Surgeon Surgeon Role Service Panel Ja Mayo MD Primary [facility] documented in this encounter Social History Tobacco Use Types Packs/Day Years Used Date Smoking Tobacco: Every Day Vaping Alcohol Use Standard Drinks/Week Comments Not Currently 0 (1 standard drink = 0.6 oz pur e alcohol) Sex and Gender Information Value Date Recorded Sex Assigned at Not on file Legal Sex Male 11:53 PM JUNIOR ACCOUNT EXECUTIVE Gender Identity Not on file Sexual Orientation Not on file documented as of this encounter Last Filed Vital Signs Vital Sign Reading Time Taken Comments Blood Pressure 149/92 12/01/2020 10:30 AM JUNIOR ACCOUNT EXECUTIVE Pulse 52 12/01/2020 10:30 AM JUNIOR ACCOUNT EXECUTIVE Temperature 36.6 ??C (97.8 ??F) 12/01/2020 9:57 AM CS T Respiratory Rate 17 12/01/2020 10:30 AM JUNIOR ACCOUNT EXECUTIVE Oxygen Saturation 93% 12/01/2020 10:30 AM JUNIOR ACCOUNT EXECUTIVE Inhaled Oxygen Concentration - - Weight 102.2 kg (225 lb 5 oz) 12/01/2020 7:40 AM JUNIOR ACCOUNT EXECUTIVE Height 172.7 cm (5' 8 ) 12/01/2020 7:40 AM JUNIOR ACCOUNT EXECUTIVE Body Mass Index 34.26 12/01/2020 7:40 AM JUNIOR ACCOUNT EXECUTIVE documented in this encounter Discharge Instructions * Attachments The following attachments cannot be sent through Care Everywhere. * General Anesthesia (Discharge Care) ([place]osta [place]ican) * Narcotic-Analgesic/Acetaminophen (By mouth) ([place]) documented in this encounter Medications at Time [...] about it and get back to us. OR ACCOUNT EXECUTIVE documented in this encounter Miscellaneous Notes * Perioperative Nursing Note - Rosetta Orr RN - 12/01/2020 2:15 PM JUNIOR ACCOUNT EXECUTIVE Up to void in bathroom. mohamud well. OR ACCOUNT EXECUTIVE * Perioperative Nursing Note - Jennifer Mejias RN - 12/01/2020 12:04 PM CST Pt resting peacefully with eyes closed. No facial grimace or moaning. resp even and unlabored. OR ACCOUNT EXECUTIVE * Op Note - aJ Mayo MD - 12/01/2020 9:08 AM CST [...] The umbilical port site was closed with evzvwj-ly-uvjkm 0 Vicryl. The skin incisions closed with 4 0 Monocryl. Complications: None Condition on Discharge from the operating room was stable Ja Mayo MD Date: 12/01/2020 Time: 9:52 AM No Resident involved on case OR ACCOUNT EXECUTIVE * Perioperative Nursing Note - Milla Saavedra RN - 11/25/2020 3:58 PM JUNIOR ACCOUNT EXECUTIVE covid screening 11/28/2020 OR ACCOUNT EXECUTIVE * Pre-Procedure Instructions - Milla Saavedra RN - 11/25/2020 3:58 PM JUNIOR ACCOUNT EXECUTIVE We are pleased that you and your doctor have chosen [facility] for your surgery. We hope that [...] mg tablet ? Use no make-up, nail belarusian, lotions, oils or powders on your skin. [...] posted at the top of the page. OR ACCOUNT EXECUTIVE documented in this encounter Plan of Treatment Not on file documented as of this encounter Procedures Procedure Name Priority Date/Time Associated Diagnosis Comments SURGICAL PATHOLOGY Routine 12/01/2020 11 :21 AM JUNIOR ACCOUNT EXECUTIVE Biliary dyskinesia LAPAROSCOPIC CHOLECYSTECTOMY 12/01/2020 8:23 AM JUNIOR ACCOUNT EXECUTIVE Biliary dyskinesia documented in this encounter Results * Surgical pathology (12/01/2020 11:21 AM JUNIOR ACCOUNT EXECUTIVE) Tissue (Gallbladder) 12/01/2020 9:37 AM JUNIOR ACCOUNT EXECUTIVE Narrative PATHOLOGY [facility] ([place]) - 12/02/2020 12:55 PM JUNIOR ACCOUNT EXECUTIVE EPIC results best viewed via link to PDF [facility] Department of Pathology [address] [place] [id number] Final Report Patient Name: ??CHAVA OLIVIERGenesis Address: ??[address] [place] [address], ??[place], [place] [address] Gender: ??M : ??1985 (Age: 35) Service: ??Surgery Location: ??[facility] Hospital #: ??[id number] Patient Type: ??[facility] Accession # ?[id number] Taken: ??12/01/2020 Received: ??12/01/2020 Accessioned: ??12/01/2020 Reported: [...] determined by the Surgical Pathology Department at [facility] as part of an ongoing vendor quality supervisor program and in compliance with federally mandated [...] characteristics determined by the Surgical Pathology Department [facility]. ??It has not been cleared or approved by the U. S. Food and Drug Administration. Ja Mayo MD LAB PATHOLOGY ORDER SAHIL Final Result Performing Organization Address City/State/[facility] Co de Phone Number PATHOLOGY [facility] ([place]) 1 [place], [place] [id number] documented in this encounter Visit Diagnoses Diagnosis [...] Pre-Emptive AnalgesiaIndications:Pre-Emptive Analgesia Given 12/01/2020 8:02 AM JUNIOR ACCOUNT EXECUTIVE 1,000 mg diphenhydrAMINE (BENADRYL) injection 12.5 mg 12.5 mg, intravenous, Administer over 2 Minutes, Every 15 min PRN, itching, Starting on Tue12/01/20 at 0947, For 2 doses, Phase I, Max cumulative dose 50 mg., Indications: ItchingIndications:Itching Given 12/01/2020 10:19 AM JUNIOR ACCOUNT EXECUTIVE 12.5 mg fentaNYL (SUBLIMAZE) preservative free injection 50 mcg 50 mcg, intravenous, Every 10 min PRN, 1st line for pain, Starting on Tue12/01/20 at 0947, Phase I, Notify Anesthesiologist if total PACU dose reaches 100 mcg and pain score 5/10 or more., Indications: PainIndications:Pain Given 12/01/2020 10:20 AM JUNIOR ACCOUNT EXECUTIVE 50 mcg HYDROmorphone (DILAUDID) 2 mg/mL injection - ADS Override Pull Starting on Tue12/01/20 at 1041, For 1 dose, Created by ameya override HYDROmorphone (DILAUDID) injection 0.5 mg 0.5 mg, intravenous, Administer over 2 Minutes, Every 10 min PRN, 2nd line for pain, Starting on Tue12/01/20 at 1038, Phase I Given 12/01/2020 11:16 AM JUNIOR ACCOUNT EXECUTIVE 0.5 mg Given 12/01/2020 10:43 AM JUNIOR ACCOUNT EXECUTIVE 0.5 mg Lactated Ringer's (LR) infusion 30 mL/hr, intravenous, Continuous, Starting on Tue12/01/20 at 0815, Pre-Op Rate/Dose Verify 12/01/2020 8:[address] New Bag 12/01/2020 8:01 AM JUNIOR ACCOUNT EXECUTIVE 30 mL/hr 30 mL/hr lidocaine EPINEPHrine (XYLOCAINE with EPI) 0.5 %-1:200,000 injection As needed, Starting on Tue12/01/20 at 0907, Intra-Op, Indications: Administration of Local AnesthesiaIndications:Adm inistration of Local Anesthesia Given 12/01/2020 9:07 AM JUNIOR ACCOUNT EXECUTIVE 9 mL Abdominal Tissue ondansetron (ZOFRAN) injection 4 mg 4 mg, intravenous, Administer over 2 Minutes, Once as needed, nausea, vomiting, Starting on Tue12/01/20 at 0947, For 1 dose, Phase I Given 12/01/2020 10:15 AM JUNIOR ACCOUNT EXECUTIVE 4 mg oxyCODONE-acetaminophen (PERCOCET) 5-325 mg per tablet 1 tablet 1 tablet, oral, Once, On Tue12/01/20 at 1345, For 1 dose, Phase I & Post-op Floor, Indications: PainIndications:Pain Given 12/01/2020 2:32 PM JUNIOR ACCOUNT EXECUTIVE 1 tablet prochlorperazine (COMPAZINE) 10 mg/2 mL (5 mg/mL) injection - ADS Override Pull Starting on Tue12/01/20 at 1112, For 1 dose, Created by ameya override prochlorperazine (COMPAZINE) injection 10 mg 10 mg, intravenous, Administer over 2 Minutes, Every 6 hours PRN, nausea, vomiting, Starting on Tue12/01/20 at 1111, Phase I Given 12/01/2020 11:13 AM JUNIOR ACCOUNT EXECUTIVE 10 mg scopolamine patch 72 hour 1 patch 1 patch, transdermal, Administer over 72 Hours, Once, On Tue12/01/20 at 0845, For 1 dose, Pre-Op Medication Applied 12/01/2020 8:05 AM JUNIOR ACCOUNT EXECUTIVE 1 patch Behind Left Ear sodium chloride 0.9 % irrigation As needed, Starting on Tue12/01/20 at 0750, Intra-Op Given 12/01/2020 7:50 AM JUNIOR ACCOUNT EXECUTIVE 500 mL Surgical Site sodium chloride 0.9 % irrigation As needed, Starting on Tue12/01/20 at 0907, Intra-Op Given 12/01/2020 9:07 AM JUNIOR ACCOUNT EXECUTIVE 250 mL Surgical Site documented in this encounter Active and Recently Administered Medications Times are shown in JUNIOR ACCOUNT EXECUTIVE. Scheduled Medication Order 11/29/2020 11/30/2020 12/01/2020 acetaminophen [...] er: Ja Mayo MD - Comment: suction pharmacist in charge) documented in this encounter Orders Medications Ordered [...] 12/01/2020 documented in this encounter Care Teams Hi Lo Driver Relationship Specialty Start Date End Date Sita Regan NP [address] [place] [address] PCP - General Nurse Practitioner 10/23/20 documented as of this encounter
--- OUTSIDE RECORDS SUMMARY | 2024-11-17 11:04 | XMS_ITS | Encounter Summary ---
Author Organization [facility] Medical Group Address [address] [place] [address] Care Team Providers Care Drop Clipper Name Role Phone JassBroSitamurtaza Pascal NP Primary Care Provider [phone] Encounter Details Date Type Department Care Team (Late st Contact Info) Description 10/29/2020 Orders Only [facility] [address] [facility] [address] [place] [id number] Ja Mayo MD [address] [facility] [address] [place] [address] Pre-op testing (Primary Dx) Social History Tobacco Use Types Packs/Day Years Used Date Smoking Tobacco: Every Day Vaping Alcohol Use Standard Drinks/Week Comments Not Currently 0 (1 standard drink = 0.6 oz pur e alcohol) Sex and Gender Information Value Date Recorded Sex Assigned at Not on file Legal Sex Male 11:53 PM HEAVY ANTIARMOR [employer] INFANTRYMAN Gender Identity Not on file Sexual Orientation Not on file documented as of this encounter Plan of Treatment Not on file documented as of this encounter Results * COVID-19 Coronavirus RNA Nasopharyngeal (11/28/2020 8:47 AM HEAVY ANTIARMOR WEAPONS INFANTRYMAN) COVID-19 RNA Not Detected [facility] Comment: Testing performed as a component of [...] [facility] ([place]) Comment:Testing performed by : [facility], [address], [address] Employeed in healthcare? No [facility] ([place]) Comment:Testing performed by : [facility], [address], [address] status? No [facility] ([place]) Comment:Testing performed by : [facility], [address], [address] Group care resident? No [facility] ([place]) Comment:Testing performed by : [facility], [address], [address] Hospitalized? No [facility] ([place]) Comment:Testing performed by : [facility], [address], [address] Is patient in ICU? No [facility] ([place]) Comment:Testing performed by : [facility], [address], [address] Symptomatic as defined by CDC? No [facility] ([place]) Comment:Testing performed by : [facility], [address] [place] [address], [address] Nasopharyngeal 11/28/2020 8: 47 AM HEAVY ANTIARMOR WE[employer]ONS INFANTRYMAN 11/28/2020 1:24 PM HEAVY ANTIARMOR WE[employer]ONS INFANTRYMAN Narrative [facility] - 11/28/2020 10:17 PM HEAVY ANTIARMOR WE[employer]ONS INFANTRYMAN What is the reason for testing?->Screening prior to scheduled procedure or surgery Ja Mayo MD LAB MICROBIOLOGY - GENERAL ORDERABLES Final Result [facility]) [address] [facility] [place] [address] documented in this encounter Visit Diagnoses Diagnosis Pre-op testing- Primary Unspecified pre-operative examination Pre-op testing Unspecified pre-operative examination documented in this encounter Care Teams Drop Clipper Relationship Specialty Start Date End Date Sita Regan NP [address] [place] [address] PCP - General Nurse Practitioner 10/23/20 documented as of this encounter
--- OUTSIDE RECORDS SUMMARY | 2024-11-17 11:04 | XMS_ITS | Encounter Summary ---
Author Organization [facility] Medical Group Address [address] [place] [address] Care Team Providers Care Urology Teacher Name Role Phone Sita Regan NP Primary Care Provider [phone] Reason for Visit * Reason Comments GB * Consultation (Routine) - Closed Specialty Diagnoses / Procedures Referred By Timothy ureña Referred To Contact General Surgery Diagnoses Disease of gallbladder Sita Regan NP [address] [place] [address] Phone: tel: fax: Ja Mayo MD [address] [place] [address] [address], [place] [address] Phone: tel: fax: Referral ID Status Reason Start Date Expiration Date V isits Requested Visits Authorized [id number] Closed Specialty Services Required 10/22/2020 11/21/2021 1 1 Encounter Details Date Type Department Care Team (Late st Contact Info) Description 10/28/2020 11:15 AM SPACE PLANNER Office Visit [facility] [address] [place] [address] [address] [phone] Malena Plasencia NP [address] [place] [address] [address], [place] [address] Biliary dyskinesia (Primary Dx); Dermatofibroma Social History Tobacco Use Types Packs/Day Years Used Date Smoking Tobacco: Every Day Vaping Alcohol Use Standard Drinks/Week Comments Not Currently 0 (1 standard drink = 0.6 oz pur e alcohol) Sex and Gender Information Value Date Recorded Sex Assigned at Not on file Legal Sex Male 11:53 PM SPACE PLANNER Gender Identity Not on file Sexual Orientation Not on file documented as of this encounter Last Filed Vital Signs Vital Sign Reading Time Taken Comments Blood Pressure 131/86 10/28/2020 11:40 AM SPACE PLANNER Pulse 68 10/28/2020 11:40 AM SPACE PLANNER Temperature 36 ??C (96.8 ??F) 10/28/2020 11: 40 AM SPACE PLANNER Respiratory Rate - - Oxygen Saturation - - Inhaled Oxygen Concentration - - Weight 103.8 kg (228 lb 14.4 oz) 2019 11:40 AM SPACE PLANNER Height 172.7 cm (5' 8 ) 10/28/2020 11:4 0 AM SPACE PLANNER Body Mass Index 34.8 10/28/2020 11:40 AM SPACE PLANNER documented in this encounter Progress Notes * [...] Ja Mayo MD at 10/29/2020 9:42 AM SPACE PLANNER E PLANNER E PLANNER documented in this encounter Miscellaneous Notes * [...] for laparoscopic cholecystectomy. Discussed low fat diet. E PLANNER * Assessment & Plan Note - Malena Plasencia NP - 10/28/2020 12:21 PM CSTAssociated Problem(s): Dermatofibroma We discussed removal x3, patient states he will think about it and get back to us. E PLANNER documented in this encounter Plan of Treatment [...] 0 documented in this encounter Care Teams Urology Teacher Relationship Specialty Start Date End Date Sita Regan NP [address] [place] [address] PCP - General Nurse Practitioner 10/23/20 documented as of this encounter
--- OUTSIDE RECORDS SUMMARY | 2024-11-17 11:04 | XMS_ITS | Encounter Summary ---
Author Organization [facility] Healthcare Address [address] [place] [address] Care Team Providers Care Formation Fracturing Operator Name Role Phone JassBroSitamurtaza Pascal NP Primary Care Provider Encounter Details Date Type Department Care Team (Late st Contact Info) Description 12/01/2020 7:34 AM TELECINE OPERATOR - 12/01/2020 2:36 PM TELECINE OPERATOR Hospital Encounter [facility] Operating Room [address] [place] [address] Ja Mayo MD [address] [place] [address] [address] Biliary dyskinesia Discharge Disposition: Discharge to home or self care Social History Tobacco Use Types Packs/Day Years Used Date Smoking Tobacco: Every Day Vaping Alcohol Use Standard Drinks/Week Comments Not Currently 0 (1 standard drink = 0.6 oz pur e alcohol) Sex and Gender Information Value Date Recorded Sex Assigned at Not on file Legal Sex Male 11:53 PM TELECINE OPERATOR Gender Identity Not on file Sexual Orientation Not on file documented as of this encounter Last Filed Vital Signs Vital Sign Reading Time Taken Comments Blood Pressure 128/72 12/01/2020 2:29 PM TELECINE OPERATOR Pulse 65 12/01/2020 2:29 PM TELECINE OPERATOR Temperature 36.9 ??C (98.4 ??F) 12/01/2020 2:29 PM CS T Respiratory Rate 20 12/01/2020 2:29 PM TELECINE OPERATOR Oxygen Saturation 97% 12/01/2020 2:29 PM TELECINE OPERATOR Inhaled Oxygen Concentration - - Weight 102.2 kg (225 lb 5 oz) 12/01/2020 7:40 AM TELECINE OPERATOR Height 172.7 cm (5' 8 ) 12/01/2020 7:40 AM TELECINE OPERATOR Body Mass Index 34.26 12/01/2020 7:40 AM TELECINE OPERATOR documented in this encounter Discharge Diagnoses Diagnosis [...] Care Everywhere. * General Anesthesia (Discharge Care) (Jamaican) * Narcotic-Analgesic/Acetaminophen (By mouth) (Jamaican) documented in this encounter Medications at Time [...] about it and get back to us. CINE OPERATOR documented in this encounter Miscellaneous Notes * Perioperative Nursing Note - Rosetta Orr RN - 12/01/2020 2:15 PM TELECINE OPERATOR Up to void in bathroom. mohamud well. CINE OPERATOR * Perioperative Nursing Note - Jennifer Mejias RN - 12/01/2020 12:04 PM CST Pt resting peacefully with eyes closed. No facial grimace or moaning. resp even and unlabored. CINE OPERATOR * Op Note - Ja Mayo MD [...] The umbilical port site was closed with yrbhhd-ed-jxrrd 0 Vicryl. The skin incisions closed with 4 0 Monocryl. Complications: None Condition on Discharge from the operating room was stable Ja Mayo MD Date: 12/01/2020 Time: 9:52 AM No Resident involved on case CINE OPERATOR * Perioperative Nursing Note - Milla Saavedra RN - 11/25/2020 3:58 PM TELECINE OPERATOR covid screening 11/28/2020 CINE OPERATOR * Pre-Procedure Instructions - Milla Saavedra RN - 11/25/2020 3:58 PM TELECINE OPERATOR We are pleased that you and your doctor have chosen [facility] for your surgery. We hope that the [...] mg tablet ? Use no make-up, nail pap[place] guinean, lotions, oils or powders on your skin. [...] posted at the top of the page. CINE OPERATOR documented in this encounter Plan of Treatment Not on file documented as of this encounter Procedures Procedure Name Priority Date/Time Associated Diagnosis Comments SURGICAL PATHOLOGY Routine 12/01/2020 11 :21 AM TELECINE OPERATOR Biliary dyskinesia LAPAROSCOPIC CHOLECYSTECTOMY 12/01/2020 8:23 AM TELECINE OPERATOR Biliary dyskinesia documented in this encounter Results * Surgical pathology (12/01/2020 11:21 AM TELECINE OPERATOR) Tissue (Gallbladder) 12/01/2020 9:37 AM TELECINE OPERATOR Narrative [facility]OLOGY [facility] ([place]) - 12/02/2020 12:55 PM TELECINE OPERATOR EPIC results best viewed via link to PDF [facility] Department of Pathology [address] [place] [address] Final Report Patient Name: ??BELLA OLIVIERAdan Pearl Address: ??[address] [place] [address], ??[place], [place] ??[facility] Gender: ??M : ??1985 (Age: 35) Service: ??Surgery Location: ??[facility] Hospital #: ??[id number] Patient Type: ??[facility] Accession # ?[id number] Taken: ??12/01/2020 Received: ??12/01/2020 Accessioned: ??12/01/2020 Reported: [...] cholesterolosis. ??Represented in one cassette. ??Nikki Miles M.D./Beartice Lara, PGenesisA. REPORT IMAGES AND SCANNED DOCUMENTS, IF INCLUDED, ONLY VIEWABLE IN PDF VERSION OF REPORT The performance characteristics of some immunohistochemical stains, fluorescence in-situ hybridization tests and immunophenotyping by flow cytometry cited in this report (if any) were determined by the Surgical Pathology Department at [facility] as part of an ongoing supervisor vendor quality program and in compliance with federally mandated [...] characteristics determined by the Surgical Pathology Department [facility]. ??It has not been cleared or approved by the U. S. Food and Drug Administration. Ja Mayo MD LAB PATHOLOGY ORDER SAHIL Final Result Performing Organization Address City/State/[facility] Co de Phone Number PATHOLOGY [facility] [place] [address] documented in this encounter Visit Diagnoses Diagnosis [...] Pre-Emptive AnalgesiaIndications:Pre-Emptive Analgesia Given 12/01/2020 8:02 AM TELECINE OPERATOR 1,000 mg diphenhydrAMINE (BENADRYL) injection 12.5 mg 12.5 mg, intravenous, Administer over 2 Minutes, Every 15 min PRN, itching, Starting on Tue12/01/20 at 0947, For 2 doses, Phase I, Max cumulative dose 50 mg., Indications: ItchingIndications:Itching Given 12/01/2020 10:19 AM TELECINE OPERATOR 12.5 mg fentaNYL (SUBLIMAZE) preservative free injection 50 mcg 50 mcg, intravenous, Every 10 min PRN, 1st line for pain, Starting on Tue12/01/20 at 0947, Phase I, Notify Anesthesiologist if total PACU dose reaches 100 mcg and pain score 5/10 or more., Indications: PainIndications:Pain Given 12/01/2020 10:20 AM TELECINE OPERATOR 50 mcg HYDROmorphone (DILAUDID) 2 mg/mL injection - ADS Override Pull Starting on Tue12/01/20 at 1041, For 1 dose, Created by ameya override HYDROmorphone (DILAUDID) injection 0.5 mg 0.5 mg, intravenous, Administer over 2 Minutes, Every 10 min PRN, 2nd line for pain, Starting on Tue12/01/20 at 1038, Phase I Given 12/01/2020 11:16 AM TELECINE OPERATOR 0.5 mg Given 12/01/2020 10:43 AM TELECINE OPERATOR 0.5 mg Lactated Ringer's (LR) infusion 30 mL/hr, intravenous, Continuous, Starting on Tue12/01/20 at 0815, Pre-Op Rate/Dose Verify 12/01/2020 8:[address] New Bag 12/01/2020 8:01 AM TELECINE OPERATOR 30 mL/hr 30 mL/hr ondansetron (ZOFRAN) injection 4 mg 4 mg, intravenous, Administer over 2 Minutes, Once as needed, nausea, vomiting, Starting on Tue12/01/20 at 0947, For 1 dose, Phase I Given 12/01/2020 10:15 AM TELECINE OPERATOR 4 mg oxyCODONE-acetaminophen (PERCOCET) 5-325 mg per tablet 1 tablet 1 tablet, oral, Once, On Tue12/01/20 at 1345, For 1 dose, Phase I & Post-op Floor, Indications: PainIndications:Pain Given 12/01/2020 2:32 PM TELECINE OPERATOR 1 tablet prochlorperazine (COMPAZINE) 10 mg/2 mL (5 mg/mL) injection - ADS Override Pull Starting on Tue12/01/20 at 1112, For 1 dose, Created by ameya override prochlorperazine (COMPAZINE) injection 10 mg 10 mg, intravenous, Administer over 2 Minutes, Every 6 hours PRN, nausea, vomiting, Starting on Tue12/01/20 at 1111, Phase I Given 12/01/2020 11:13 AM TELECINE OPERATOR 10 mg scopolamine patch 72 hour 1 patch 1 patch, transdermal, Administer over 72 Hours, Once, On Tue12/01/20 at 0845, For 1 dose, Pre-Op Medication Applied 12/01/2020 8:05 AM TELECINE OPERATOR 1 patch Behind Left Ear documented in this encounter Active and Recently Administered Medications Times are shown in TELECINE OPERATOR. Scheduled Medication Order 11/29/2020 11/30/2020 12/01/2020 acetaminophen [...] er: Ja Mayo MD - Comment: suction rehabilitation program coordinator) documented in this encounter Orders Medications Ordered [...] 12/01/2020 documented in this encounter Care Teams Formation Fracturing Operator Relationship Specialty Start Date End Date Sita Regan NP [address] [place] [address] PCP - General Nurse Practitioner 10/23/20 documented as of this encounter
== END 2024-11-10 09:38 | disposition home or self-care (01) ==
PROVIDERS: Emergency Provider Nurse Practitioner; PCP Nurse Practitioner Family
DX: H60.502 Unspecified acute noninfective otitis externa, left ear (principal)
CPT/HCPCS: 99213; G0463